=== PATIENT | female | born 1950 | race Caucasian/White ===

== ENCOUNTER 2016-04-14 10:06 | Inpatient (IN) | payer OTHER ==
[~2016-04-14] VITALS: Ht 170.2 cm; Wt 75.0 kg
[2016-04-14] VITALS (21 sets, daily range): BP systolic 106–157; BP diastolic 69–91; PULSE 68–105; TEMP 36.4–38.3; O2SAT 90–97; Ht 170.2 cm; Wt 75.0 kg
[~2016-04-14 10:06] MED LIST: ASPI-390 PO; ATOR-24 PO; FLUT0.15 NAE; INDSR80 PO; KRIL1CAP7 PO; LSN25 PO; NORT10CA PO; PANT40TA PO
[2016-04-14] MEDS ORDERED: HYDROmorphone INJ 0.5 MG/0.5 ML SYR IV STA (10:13)
[2016-04-14] MEDS ORDERED: METOCLOPRAMIDE HCL INJ 5 MG/ML 2 ML VIAL IV STA (10:13)
[2016-04-14] MEDS ORDERED: SODIUM CHLORIDE 0.9% 500ML 500 ML IV STA (10:13)
--- NOTE | 2016-04-14 10:17 | EMERGENCY ROOM VISIT NOTE ---
History Report prepared by Ney: Da Weeks Under the Supervision of: Dr. Barry Angel M.D. First contact with patient: 10:01 Chief Complaint: ABDOMINAL PAIN Stated Complaint: AB PAIN History of Present Illness The patient is a 66 year old female who presents to the Emergency Room with complaints of worsening abdominal pain since yesterday. Per EMS, the patient was diagnosed with diverticulosis yesterday. Last night she started to experience vomiting and diarrhea. The pain was rated 10/10 in severity en route to the ED prior to receiving 50 mcg Fentanyl. Patient is currently mumbling about the pain and asking for the pain to be taken away. Source of History: EMS Onset: yesterday Position: abdomen Symptom Intensity: 10/10 prior to Fentanyl Timing: worsening Associated Symptoms: + diarrhea, + nausea, + vomiting Review of Systems See HPI for pertinent positives & negatives. A total of 10 systems reviewed and were otherwise negative. Past Medical & Surgical Medical Problems: (1) Diverticulitis (2) Dyslipidemia (3) GERD (gastroesophageal reflux disease) (4) HTN (hypertension) (5) Mitral valve prolapse Surgical Problems: (1) History of appendectomy (2) History of cholecystectomy (3) History of gynecologic surgery (4) History of mandibular surgery (5) History of tubal ligation Family History Cancer Diabetes mellitus Social History Smoking Status: Former Smoker Marital Status: single Housing Status: lives alone Occupation Status: employed Current/Historical Medications Scheduled Zmnuggc-Tpqrhmtdytfft-Rbavrlhf (Excedrin Migraine), 2-3 TAB PO PRN UD Atorvastatin (Lipitor), 1 TAB PO HS Fluticasone Propionate (Nasal) (Flonase Allergy Relief), 2 SPRAYS ZOILA DAILY Krill Oil (Krill Oil Leland-3), 2 CAP PO QAM Krill Oil (Krill Oil Leland-3), 1 CAP PO QPM Lisinopril (Lisinopril), 2.5 MG PO DAILY Nortriptyline Hcl (Pamelor), 10 MG PO HS Pantoprazole (Protonix), 40 MG PO DAILY Propranolol HCl (Propranolol HCl ER), 80 MG PO DAILY Sertraline (Zoloft), 1 TAB PO DAILY Scheduled PRN Hydrocodone/Acetaminophen 5MG/325MG (Acme 5MG/325MG), 1 TAB PO TID PRN for Pain Allergies Coded Allergies: Morphine (Verified Allergy, Severe, anaphelaxis, 2/22/17) Diphenhydramine (Verified Allergy, Intermediate, itching, 04/14/16) Acetaminophen (Verified Adverse Reaction, Intermediate, GI SYMPTOMS, ) Hydrocodone (Verified Adverse Reaction, Intermediate, GI SYMPTOMS, 04/14/16 ) Physical Exam Vital Signs Date Time Temp Pulse Resp B/P Pulse Ox O2 Delivery O2 Flow Rate FiO2 04/14/16 13:01 101 18 109/73 97 Room Air 04/14/16 12:36 101 15 121/77 91 Nasal Cannula 2.0 04/14/16 10:27 36.6 105 24 132/80 85 Room Air 04/14/16 10:22 112 Physical Exam GENERAL: Patient is a healthy-appearing well-nourished HEAD: Normocephalic atraumatic EYES: Ocular movements intact pupils equal and react to light OROPHARYNX mucous membranes are moist no exudates present no erythema or edema present NECK: Supple no nuchal rigidity CHEST: Good equal expansion LUNGS: Clear and equal to auscultation CARDIAC: Normal S1 and S2 ABDOMEN: Patient is mumbling about abdominal pain and asking for the pain to be taken away on exam. Patient was evaluated after receiving 50 mcg Fentanyl. BACK: No CVA tenderness EXTREMITIES: No pain upon palpation normal muscle strength in all groups no clubbing cyanosis or edema NEURO: Patient is following commands is answering questions appropriately. Alert and oriented x3 Cranial Nerves 2-12 grossly intact Medical Decision & Procedures ER Provider Diagnostic Interpretation: Radiology results as stated below per my review and radiologist interpretation: CHEST ONE VIEW PORTABLE CLINICAL HISTORY: Pt c/o abd pain pain COMPARISON STUDY: 11/13/2015 FINDINGS: Small bibasilar parenchymal infiltrates. Slight blunting left lateral gastric angle. And upper lungs are considered clear. IMPRESSION: Small bibasilar parenchymal infiltrates. Electronically signed by: Aurelio Rodriguez M.D. 04/14/2016 1:14 PM Dictated Date/Time: 04/14/2016 1:[address] ABD/PELVIS IV CONTRAST ONLY CLINICAL HISTORY: Diffuse abdominal pain COMPARISON STUDY: Abdominal ultrasound performed October 2013 TECHNIQUE: Following the IV administration of 92 mL of Optiray-320, CT scan of the abdomen and pelvis was performed from the lung bases to the proximal femurs. Images are reviewed in the axial, sagittal, and coronal planes. IV contrast was administered without complication. CT DOSE: 314.49 mGy.cm FINDINGS: Lower chest: There are dependent bibasilar opacities, likely atelectatic. Liver: The contrast-enhanced liver is normal in size, contour, and attenuation. There is no intrahepatic biliary ductal dilatation. The hepatic veins and portal veins are patent. Gallbladder: Surgically absent Spleen: Normal in size and attenuation. Pancreas: Unremarkable. Adrenal glands: Unremarkable. Kidneys: There is symmetric renal cortical enhancement. The kidneys are normal in size without hydronephrosis. Bowel: There is free intraperitoneal air. There are no transition zones indicate bowel obstruction. There is extensive colonic diverticulosis. There is infiltration of the pericolonic fat at the descending sigmoid junction. The findings are suspicious for perforated diverticulitis. There is mild fatty hypertrophy involving the colonic wall most pronounced at the level of the transverse colon. There are multiple fluid-filled small bowel loops likely secondary to an ileus. Peritoneum: There is minimal free fluid within the pelvis, as well as there is a small amount of interloop fluid adjacent to the suspected diverticulitis.. There is free intraperitoneal air. Vasculature: The abdominal aorta is normal in course and caliber. Adenopathy: None. Pelvic viscera: The bladder, and pelvic viscera are unremarkable. Skeletal structures: No destructive osseous lesions are seen. IMPRESSION: 1. Free intraperitoneal air, suspicious for a perforated viscus 2. Multiple colonic diverticula, and infiltration the pericolonic fat at the descending sigmoid junction. The findings are suspicious for acute perforated diverticulitis. No drainable abscesses are visualized. 3. No evidence of bowel obstruction. 4. Bibasal atelectasis. 5. This report will be called. Electronically signed by: Ronnie Martins M.D. 04/14/2016 12:39 PM Dictated Date/Time: 04/14/2016 12:32 PM Laboratory Results Test 04/14/16 11:05 04/14/16 11:15 Prothrombin Time 11.1 SECONDS (9.0-12.0) Prothromb Time International Ratio 1.0 (0.9-1.1) Activated Partial Thromboplast Time 27.0 SECONDS (21.0-31.0) Partial Thromboplastin Ratio 1.0 Direct Bilirubin 0.2 mg/dl (0-0.2) Lipase 65 U/L (73-393) Date/Time Source Procedure Growth Status 04/14/16 00:00 Nasal MRSA DNA Surveillance Screen - Final Specimen Negative for MRSA by DNA Probe Complete Labs reviewed by ED physician. Medications Administered Medications (Trade) Dose Ordered Sig/Sara Route Start Time Stop Time Status Last Admin Dose Admin Hydromorphone HCl (Dilaudid Inj) 0.5 mg NOW STAT IV 04/14/16 10:13 04/14/16 10:15 DC 04/14/16 14:07 0.5 MG Metoclopramide HCl 10 mg 10 mg NOW STAT IV 04/14/16 10:13 04/14/16 10:15 DC 04/14/16 11:35 10 MG Sodium Chloride (Nss 500ml) 500 ml @ 999 mls/hr Q31M STAT IV 04/14/16 10:13 04/14/16 10:43 DC 04/14/16 10:13 999 MLS/HR Potassium Chloride 10 meq 10 meq NOW STAT IV 04/14/16 11:54 04/14/16 11:55 DC 04/14/16 13:53 10 MEQ Potassium Chloride/Prmx (Kcl 10 Meq / Wtr/Premixed Water) 100 ml @ 100 mls/hr NOW STAT IV 04/14/16 11:54 04/14/16 12:53 DC 04/14/16 12:37 100 MLS/HR Piperacillin Sod/ Tazobactam Sod 4.5 gm 4.5 gm NOW STAT IV 04/14/16 12:55 04/14/16 12:57 DC 04/14/16 14:07 4.5 GM Sodium Chloride (Nss 1000ml) 1,000 ml @ 999 mls/hr Q1H1M STAT IV 04/14/16 12:59 04/14/16 13:59 DC 04/14/16 12:59 999 MLS/HR ECG Indication: abdominal pain Rate (beats per minute): 98 Rhythm: normal sinus Findings: no acute ischemic change, no ectopy, other (normal EKG) ED Course 1010: Past medical records reviewed. The patient was evaluated in room A11b. A complete history and physical examination was performed. 1013: NSS 500 ml @ 999 mls/hr, Reglan 10 mg IV, Dilaudid 0.5 mg IV. 1154: Potassium Chloride 10 meq 100 ml @ 100 mls/hr. 1255: Zosyn 4.5 gm IV. 1259: NSS 1000 ml @ 999 mls/hr. 1302: Spoke with Dr. Clark, General Surgeon. The patient will be evaluated. Medical Decision Differential diagnosis: Etiologies such as appendicitis, diverticulitis, PUD, biliary pathology, UTI, pancreatitis, obstruction, mesenteric ischemia, aortic pathology, infections, inflammatory bowel disease, renal colic, as well as others were entertained. This is a 66-year-old female who presents emergency department complaining of diffuse abdominal pain. Based on the patient's pain she was sent for CAT scan of the abdomen pelvis. This was concerning for free air as well as puncture diverticuli. The patient was given Dilaudid in the emergency department. She was pancultured up concern antibiotics. I did discuss the case with the surgeon on-call. Patient was in agreement with the treatment plan. Consults Time Called: 1255 Consulting Physician: Dr. Clark, General Surgeon Returned Call: 1302 1302: Spoke with Dr. Clark, General Surgeon. The patient will be evaluated. Impression Primary Impression: Diffuse abdominal pain Additional Impression: Perforated diverticulum Critical Care I have personally spent greater than 30 minutes of critical care time in the direct management of this patient. This includes bedside care, interpretation of diagnostic studies, and testing, discussion with consultants, patient, and family members, and other required patient management activities. This 30 minutes is in excess of all separately billable procedures. Scribe Attestation The scribe's documentation has been prepared under my direction and personally reviewed by me in its entirety. I confirm that the note above accurately reflects all work, treatment, procedures, and medical decision making performed by me. Departure Information Dispostion Being Evaluated By Surgeon Referrals Tricia Turk D.O. (PCP) Patient Instructions My [facility] Problem Qualifiers
[2016-04-14] MEDS ORDERED: HYDR-5688 PO (10:41)
[2016-04-14] MEDS ORDERED: SERT50TA PO (10:41)
[2016-04-14 11:54] LABS: BASO % 0.1 %; BASO ABS # 0.01 K/uL (0-0.2); COMPLETE YES; EOS % 0.1 %; HEMATOCRIT 36.9 % (37-47); IG% 1.3 %; LYMPH % 6.1 %; LYMPH ABS # 0.49 K/uL (1.2-3.4); MEAN CELL VOLUME 91.1 fL (80-100); MEAN CORPUSCULAR HEMOGLOBIN 32.1 pg (25-34); MEAN CORPUSCULAR HGB CONC 35.2 g/dl (32-36); MONO % 5.3 %; NEUT % 87.1 %; PLATELET COUNT 329 K/uL (130-400); RED BLOOD COUNT 4.05 M/uL (4.2-5.4); WHITE BLOOD COUNT 7.99 K/uL (4.8-10.8)
[2016-04-14] MEDS: POTASSIUM CHLORIDE 10 MEQ / 100ML WTR IV STA ×2 (11:54→13:53)
[2016-04-14] MEDS ORDERED: POTASSIUM CHLR 10 MEQ / WTR 10 MEQ in PREMIXED WATER 100 ML IV STA (11:54)
[2016-04-14 12:03] LABS: BUN/CREATININE RATIO 20.1 (10-20); CALCIUM 8.9 mg/dl (8.5-10.1); CREATININE 0.59 mg/dl (0.60-1.20); POTASSIUM 2.9 mmol/L (3.5-5.1)
--- NOTE | 2016-04-14 12:41 | DIAGNOSTIC IMAGING REPORT ---
CT ABD/PELVIS IV CONTRAST ONLY CLINICAL HISTORY: Diffuse abdominal pain COMPARISON STUDY: Abdominal ultrasound performed October 2013 TECHNIQUE: Following the IV administration of 92 mL of Optiray-320, CT scan of the abdomen and pelvis was performed from the lung bases to the proximal femurs. Images are reviewed in the axial, sagittal, and coronal planes. IV contrast was administered without complication. CT DOSE: 314.49 mGy.cm FINDINGS: Lower chest: There are dependent bibasilar opacities, likely atelectatic. Liver: The contrast-enhanced liver is normal in size, contour, and attenuation. There is no intrahepatic biliary ductal dilatation. The hepatic veins and portal veins are patent. Gallbladder: Surgically absent Spleen: Normal in size and attenuation. Pancreas: Unremarkable. Adrenal glands: Unremarkable. Kidneys: There is symmetric renal cortical enhancement. The kidneys are normal in size without hydronephrosis. Bowel: There is free intraperitoneal air. There are no transition zones indicate bowel obstruction. There is extensive colonic diverticulosis. There is infiltration of the pericolonic fat at the descending sigmoid junction. The findings are suspicious for perforated diverticulitis. There is mild fatty hypertrophy involving the colonic wall most pronounced at the level of the transverse colon. There are multiple fluid-filled small bowel loops likely secondary to an ileus. Peritoneum: There is minimal free fluid within the pelvis, as well as there is a small amount of interloop fluid adjacent to the suspected diverticulitis.. There is free intraperitoneal air. Vasculature: The abdominal aorta is normal in course and caliber. Adenopathy: None. Pelvic viscera: The bladder, and pelvic viscera are unremarkable. Skeletal structures: No destructive osseous lesions are seen. IMPRESSION: 1. Free intraperitoneal air, suspicious for a perforated viscus 2. Multiple colonic diverticula, and infiltration the pericolonic fat at the descending sigmoid junction. The findings are suspicious for acute perforated diverticulitis. No drainable abscesses are visualized. 3. No evidence of bowel obstruction. 4. Bibasal atelectasis. 5. This report will be called. Electronically signed by: Ronnie Martins M.D. 04/14/2016 12:39 PM Dictated Date/Time: 04/14/2016 12:32 PM
[2016-04-14] MEDS ORDERED: PIPERACILLIN/TAZOBACTAM 4.5 GM/100ML D5W IV STA (12:55)
[2016-04-14] MEDS ORDERED: SODIUM CHLORIDE 0.9% 1000ML 1,000 ML IV STA (12:59)
--- NOTE | 2016-04-14 13:15 | DIAGNOSTIC IMAGING REPORT ---
CHEST ONE VIEW PORTABLE CLINICAL HISTORY: Pt c/o abd pain pain COMPARISON STUDY: 11/13/2015 FINDINGS: Small bibasilar parenchymal infiltrates. Slight blunting left lateral gastric angle. And upper lungs are considered clear. IMPRESSION: Small bibasilar parenchymal infiltrates. Electronically signed by: Aurelio Rodriguez M.D. 04/14/2016 1:14 PM Dictated Date/Time: 04/14/2016 1:13 PM
[2016-04-14] MEDS ORDERED: HYDROmorphone INJ 1 MG/ML SYR IV PRN (13:30)
[2016-04-14] MEDS ORDERED: LORAZEPAM INJ 0.5 MG in SYRINGE 0.75 ML IV PRN (13:30)
[2016-04-14] MEDS ORDERED: HYDROmorphone INJ 2 MG/ML SYR/VIAL IV PRN ×2 (13:30→16:30)
[2016-04-14] MEDS ORDERED: HYDROmorphone INJ 0.5 MG/0.5 ML SYR IV PRN ×2 (13:30→19:30)
[2016-04-14] MEDS ORDERED: POTASSIUM CHLORIDE INJ 40 MEQ in D5W AND NSS 1,000 ML IV STA (13:39)
[2016-04-14] MEDS ORDERED: PIPERACILL/TAZOBAC CONSULT ACTIVE PRN (13:45)
--- NOTE | 2016-04-14 13:47 | Surgery Progress Note ---
Surgery Progress Note Date of Service Apr 14, 2016. Objective Vital Signs: Date Time Temp Pulse Resp B/P Pulse Ox O2 Delivery O2 Flow Rate FiO2 04/14/16 13:33 37.5 100 18 103/76 96 Nasal Cannula 2.0 04/14/16 13:01 101 18 109/73 97 Room Air 04/14/16 12:36 101 15 121/77 91 Nasal Cannula 2.0 04/14/16 10:27 36.6 105 24 132/80 85 Room Air 04/14/16 10:22 112 Laboratory Results: Results Past 24 Hours Test 04/14/16 11:15 04/14/16 13:39 Range/Units White Blood Count 7.99 4.8-10.8 K/uL Red Blood Count 4.05 4.2-5.4 M/uL Hemoglobin 13.0 12.0-16.0 g/dL Hematocrit 36.9 37-47 % Mean Corpuscular Volume 91.1 80-100 fL Mean Corpuscular Hemoglobin 32.1 25-34 pg Mean Corpuscular Hemoglobin Concent 35.2 32-36 g/dl Platelet Count 329 130-400 K/uL Mean Platelet Volume 9.0 7.4-10.4 fL Neutrophils (%) (Auto) 87.1 % Lymphocytes (%) (Auto) 6.1 % Monocytes (%) (Auto) 5.3 % Eosinophils (%) (Auto) 0.1 % Basophils (%) (Auto) 0.1 % Neutrophils # (Auto) 6.96 1.4-6.5 K/uL Lymphocytes # (Auto) 0.49 1.2-3.4 K/uL Monocytes # (Auto) 0.42 0.11-0.59 K/uL Eosinophils # (Auto) 0.01 0-0.5 K/uL Basophils # (Auto) 0.01 0-0.2 K/uL RDW Standard Deviation 41.9 36.4-46.3 fL RDW Coefficient of Variation 12.5 11.5-14.5 % Immature Granulocyte % (Auto) 1.3 % Immature Granulocyte # (Auto) 0.10 0.00-0.02 K/uL Sodium Level 140 136-145 mmol/L Potassium Level 2.9 3.5-5.1 mmol/L Chloride Level 103 98-107 mmol/L Carbon Dioxide Level 25 21-32 mmol/L Anion Gap 12.0 3-11 mmol/L Blood Urea Nitrogen 12 7-18 mg/dl Creatinine 0.59 0.60-1.20 mg/dl Est Creatinine Clear Calc Drug Dose 88.9 ml/min Estimated GFR () 111.5 Estimated GFR (Non- 96.2 BUN/Creatinine Ratio 20.1 10-20 Random Glucose 120 70-99 mg/dl Calcium Level 8.9 8.5-10.1 mg/dl Total Bilirubin 0.7 0.2-1 mg/dl Direct Bilirubin 0.2 0-0.2 mg/dl Aspartate Amino Transf (AST/SGOT) 28 15-37 U/L Alanine Aminotransferase (ALT/SGPT) 45 12-78 U/L Alkaline Phosphatase 139 45-117 U/L Total Protein 7.0 6.4-8.2 gm/dl Albumin 3.1 3.4-5.0 gm/dl Lipase 65 73-393 U/L Assessment & Plan 04/14/16- admit to ICU with perforated diverticulitis- NPO, IV fluids, atbx pain control, monitor progress closely monitor, may need IV beta rachelle discussed with daughter- Tricia Ibrahim [phone]
--- NOTE | 2016-04-14 13:53 | HISTORY & PHYSICAL EXAMINATION ---
DATE OF ADMISSION: 04/14/2016 CHIEF COMPLAINT: Abdominal pain. HISTORY OF PRESENT ILLNESS: The patient is a 66-year-old female who developed worsening abdominal pain over the past 24 hours, most localized to the left lower abdomen, presenting to the Emergency Room in extreme pain, found on CAT scan to have perforated diverticulitis. She is afebrile, heart rate is approximately 100. White count is 7.99, potassium 2.99. PAST MEDICAL HISTORY: Appendectomy, cholecystectomy, [employer] surgery, tubal ligation, hyperlipidemia, hypertension, mitral valve prolapse. MEDICATIONS: Include propranolol, Protonix and Lipitor. REVIEW OF SYSTEMS: She does admit to nausea, vomiting, diarrhea. Ten other systems reviewed and otherwise negative. FAMILY HISTORY: Noncontributory. SOCIAL HISTORY: She is a former smoker. ALLERGIES: SHE DOES HAVE ALLERGIES OR REACTIONS TO MORPHINE, DIPHENHYDRAMINE, ACETAMINOPHEN AND HYDROCODONE. PHYSICAL EXAMINATION: GENERAL: A healthy appearing female in some distress secondary to pain and anxiety. HEAD: Normocephalic. EYES: Show normal sclera. NECK: Supple. SKIN: Shows no rashes. LUNGS: Clear without respiratory distress. HEART: Regular rate and rhythm. ABDOMEN: Soft, but she does have tenderness especially in the lower abdomen, somewhat difficult to examine secondary to her anxiety and pain. EXTREMITIES: Without significant edema. She is awake and alert. I did review her CAT scan which shows evidence of extraluminal air and inflammation in the perisigmoid area. ASSESSMENT AND PLAN: A 66-year-old female with perforated diverticulitis. I have discussed with the patient admission to the hospital and possible need for urgent operation depending on her progress. I also discussed the possibility of needing a temporary colostomy and at that point she told me she would not have that and would rather . Obviously we will not allow this to happen. We will admit her to the ICU and ask the [facility] hospitalist to see the patient. Keep her n.p.o., IV fluids, Ballesteros catheter, IV antibiotics and assess her for deterioration. She may need urgent operation.
[2016-04-14 13:56] LABS: PROTHROMBIN TIME (PATIENT) 11.1 SECONDS (9.0-12.0)
[2016-04-14] MEDS: ONDANSETRON INJ 2 MG/ML 2 ML VIAL IV PRN (14:07)
--- NOTE | 2016-04-14 14:32 | Medical Consult ---
Consultation Date of Consultation: Apr 14, 2016. Attending Physician: Dr. Doyle Reason for Consultation: med mgmt History of Present Illness This is a 66 y/o female with PMHx of diverticulosis, GERD, HTN, Dyslipidemia and other problems as outlined below who presents to the ED c/o worsening abd pain x 24 hrs. Pt reports that one week ago she developed abdominal pain that she describes as 10/10 "sharp" LLQ pain that radiates to the groin and back. Sxs are assoc with subj fevers/chills, N/V and diarrhea. Pt was seen by her PCP yesterday. abd CT abd bloodwork was ordered. Pt was started on course of Cipro/ Flagyl which she started this morning. Due to worsening abd pain, patient presented to the ED for further evaluation. Pt has a history of diverticulitis. Her last flare was "years ago". Pt denies chest pain, SOB, hematochezia, melena , bladder issues, LE edema ,calf pain, lightheadedness/dizziness. In the ED, pt is tachy on arrival. She is afebrile with no leukocytosis. K+ 2.9. CT abd/ pelvis + perforated diverticulitis with no evidence of abscess. Pt will be admitted to the ICU for further evaluation and treatment including possible need for emergent surgery. Past Medical/Surgical History Medical Problems: (1) Diffuse abdominal pain Status: Acute (2) Perforated diverticulum Status: Acute Family History Cancer Diabetes mellitus Social History Smoking Status: Former Smoker (48 pack year history; quit june 2014) Alcohol Use: none Drug Use: none Marital Status: single Housing Status: lives alone Allergies Coded Allergies: Morphine (Verified Allergy, Severe, anaphelaxis, 04/14/16) Diphenhydramine (Verified Allergy, Intermediate, itching, 04/14/16) Acetaminophen (Verified Adverse Reaction, Intermediate, GI SYMPTOMS, ) Hydrocodone (Verified Adverse Reaction, Intermediate, GI SYMPTOMS, 04/14/16 ) Home Medications Active Reported [place] 5MG/325MG (Acetaminophen/Hydrocodone Bitart) Tab 1 Tab PO TID PRN 30 Days PRN PAIN. filled at [facility] on 04/13/16 Zoloft (Sertraline HCl) 50 Mg Tab 1 Tab PO DAILY 30 Days Excedrin Migraine (Fbbibsb-Rlpvqhqwytchw-Gbktxfci) 1 Tab Tab 2-3 Tab PO PRN UD Pamelor (Nortriptyline Hcl) 10 Mg Cap 10 Mg PO HS Propranolol HCl ER (Propranolol HCl) 80 Mg Capcr 80 Mg PO DAILY Protonix (Pantoprazole Sodium) 40 Mg Tab 40 Mg PO DAILY Krill Oil [place]-3 (Krill Oil) 1 Cap Cap 1 Cap PO QPM Krill Oil [place]-3 (Krill Oil) 1 Cap Cap 2 Cap PO QAM Lisinopril 2.5 Mg Tab 2.5 Mg PO DAILY Flonase Allergy Relief (Fluticasone Propionate (Nasal)) 50 Mcg/Act Spr 2 Sprays ZOILA DAILY Lipitor (Atorvastatin Calcium) 40 Mg Tab 1 Tab PO HS 90 Days Current Inpatient Medications Current Inpatient Medications Medications (Trade) Dose Ordered Sig/Sara Route Start Time Stop Time Status Last Admin Dose Admin Hydromorphone HCl (Dilaudid Inj) 0.5 mg Q3H PRN IV 04/14/16 13:30 04/28/16 13:29 Hydromorphone HCl (Dilaudid Inj) 1 mg Q3H PRN IV 04/14/16 13:30 04/28/16 13:29 Hydromorphone HCl 2 mg 2 mg Q3H PRN IV 04/14/16 13:30 04/28/16 13:29 Piperacillin Sod/ Tazobactam Sod/ Dextrose (Zosyn Iv/D5 100ml) 115 ml @ 28.75 mls/ hr Q8 IV 04/14/16 14:00 04/24/16 13:59 UNV Heparin Sodium (Porcine) 5000 unit 5,000 unit Q12H SQ 04/14/16 13:30 05/14/16 13:29 UNV Lorazepam 0.5 mg/ Syringe 1 ml @ 0.5 mls/min Q6 PRN IV 04/14/16 13:30 05/14/16 13:29 Lorazepam 0.5 mg/ Syringe 1 ml @ 0.5 mls/min Q6 PRN IV 04/14/16 13:30 05/14/16 13:29 Promethazine HCl/ Sodium Chloride (Phenergan Inj/ Nss 50ml) 51 ml @ 204 mls/hr Q6H PRN IV 04/14/16 13:30 05/14/16 13:29 Ondansetron HCl (Zofran Inj) 4 mg Q6H PRN IV 04/14/16 13:30 05/14/16 13:29 Ketorolac Tromethamine (Toradol Inj) 30 mg Q6H IV. 04/14/16 13:30 04/19/16 13:29 UNV Piperacillin Sod/ Tazobactam Sod 1 ea 1 ea UD PRN N/A 04/14/16 13:45 05/14/16 13:44 Potassium Chloride 40 meq/ Dextrose/Sodium Chloride 1,020 ml @ 125 mls/hr Q8H10M STAT IV 04/14/16 13:39 04/14/16 21:48 Potassium Chloride/Dextrose/ Sodium Chloride (KCl Inj/D5W And Nss) 1,020 ml @ 125 mls/hr Q8H10M IV 04/14/16 13:45 05/14/16 13:44 UNV Review of Systems Constitutional: + chills, + fever (subj), No fatigue, No weakness Eyes: No worsening of vision ENT: No hearing loss Respiratory: No cough, No shortness of breath Cardiovascular: No chest pain, No claudication, No edema Abdomen: + diarrhea, + nausea, + pain, + vomiting, No GI bleeding, No constipation Musculoskeletal: No calf pain, No swelling Genitourinary - Female: No dysuria Neurologic: No weakness Psychiatric: No depression symptoms Endocrine: No fatigue Hematologic / Lymphatic: No abnormal bleeding/bruising Integumentary: No new/changing skin lesions Physical Exam Date Time Temp Pulse Resp B/P Pulse Ox O2 Delivery O2 Flow Rate FiO2 04/14/16 13:33 37.5 100 18 103/76 96 Nasal Cannula 2.0 04/14/16 13:01 101 18 109/73 97 Room Air 04/14/16 12:36 101 15 121/77 91 Nasal Cannula 2.0 04/14/16 10:27 36.6 105 24 132/80 85 Room Air 04/14/16 10:22 112 General Appearance: WD/WN, + mild distress, + pertinent finding (Pt is laying in bed with some distress due to pain ) Head: normocephalic, atraumatic Eyes: normal inspection ENT: hearing grossly normal Neck: supple Respiratory/Chest: chest non-tender, lungs clear, normal breath sounds, no respiratory distress Cardiovascular: regular rate, rhythm, no edema, no murmur Abdomen/GI: normal bowel sounds, soft, + tenderness (exquisite tenderness), + guarding Back: normal inspection Extremities/Musculoskelatal: normal inspection, no calf tenderness, no pedal edema Neurologic/Psych: alert, normal mood/affect, oriented x 3 Skin: normal color, warm/dry Laboratory Results Last 24 Hours Test 04/14/16 11:05 04/14/16 11:15 Prothrombin Time 11.1 SECONDS Prothromb Time International Ratio 1.0 Activated Partial Thromboplast Time 27.0 SECONDS Partial Thromboplastin Ratio 1.0 White Blood Count 7.99 K/uL Red Blood Count 4.05 M/uL Hemoglobin 13.0 g/dL Hematocrit 36.9 % Mean Corpuscular Volume 91.1 fL Mean Corpuscular Hemoglobin 32.1 pg Mean Corpuscular Hemoglobin Concent 35.2 g/dl Platelet Count 329 K/uL Mean Platelet Volume 9.0 fL Neutrophils (%) (Auto) 87.1 % Lymphocytes (%) (Auto) 6.1 % Monocytes (%) (Auto) 5.3 % Eosinophils (%) (Auto) 0.1 % Basophils (%) (Auto) 0.1 % Neutrophils # (Auto) 6.96 K/uL Lymphocytes # (Auto) 0.49 K/uL Monocytes # (Auto) 0.42 K/uL Eosinophils # (Auto) 0.01 K/uL Basophils # (Auto) 0.01 K/uL RDW Standard Deviation 41.9 fL RDW Coefficient of Variation 12.5 % Immature Granulocyte % (Auto) 1.3 % Immature Granulocyte # (Auto) 0.10 K/uL Sodium Level 140 mmol/L Potassium Level 2.9 mmol/L Chloride Level 103 mmol/L Carbon Dioxide Level 25 mmol/L Anion Gap 12.0 mmol/L Blood Urea Nitrogen 12 mg/dl Creatinine 0.59 mg/dl Est Creatinine Clear Calc Drug Dose 88.9 ml/min Estimated GFR () 111.5 Estimated GFR (Non- 96.2 BUN/Creatinine Ratio 20.1 Random Glucose 120 mg/dl Calcium Level 8.9 mg/dl Total Bilirubin 0.7 mg/dl Direct Bilirubin 0.2 mg/dl Aspartate Amino Transf (AST/SGOT) 28 U/L Alanine Aminotransferase (ALT/SGPT) 45 U/L Alkaline Phosphatase 139 U/L Total Protein 7.0 gm/dl Albumin 3.1 gm/dl Lipase 65 U/L Assessment & Plan ACUTE PERFORATED DIVERTICULITIS pt presented with worsening LLQ abd pain assoc with fevers/chills, N/V and diarrhea; h/o diverticulitis -admitted to the ICU by surgery, Dr. Clark -pt is afebrile with no leukocytosis -CT abd/pelvis + acute perforated diverticulitis with no evidence of abscess -obtain blood cultures and check lactic acid -cont abx and IVF -Dilaudid PRN pain -keep NPO for possible need for emergent surgery -pt does not appear septic -will continue to follow HTN -BP stable -holding lisinopril and Propranolol for now due to NPO status for possible OR -monitor DYSLIPIDEMIA -hold statin for now due to possible OR DVT PROPHYLAXIS -SCDs only in setting of possible need for surgery CODE STATUS -DNR status per discussion with patient upon admission DISPO -Pt seen in collaboration with Dr. Gan. Please see his addendum for further details. Thanks! -Of note: patient will be followed by Dr. Doyle starting tomorrow AM. Thank you for this consultation. We will follow the patient with you during their hospital stay. You can reach a [facility] via pager @ [phone]. SUPERVISING PHYSICIAN ADDENDUM: Record reviewed. Patient interviewed and examined. Care coordinated with Tori Nielsen PA-C. Please refer to her documentation for patient's history. Briefly 66 YO female who presented to ED complaining of abdominal pain. CT demonstrated free air and suspected diverticulitis. Taken to OR this afternoon; exploratory lap performed by Dr. Clark. Doing fairly well postoperatively except for abdominal pain. No chest pain. No cough or dyspnea. No vomiting. EXAM (~ 19:00): General- appears to be uncomfortable, but in no acute distress VS- as noted HEENT- [] Neck- no JVD Lungs- clear to auscultation Heart- RRR, no murmur or gallop appreciated Abdomen- bandaged, slightly distended, soft, quiet bowel sounds Extremities- SCD's applied; no pretibial edema or calf tenderness Neuro- somewhat sedated DATA: CT abdomen + pelvis: free air; colonic diverticulosis; infiltration of pericolonic fat in sigmoid region consistent with diverticulitis. EKG performed at 13:27 reviewed and demonstrated NSR at 98 / minute, T-wave flattening inferiorly. ASSESSMENT AND PLAN: Diverticulitis with perforation / peritonitis. Received IV fluids and antibiotics. Exploratory lap performed by Dr. Clark. Stable postoperatively. History of hypertension treated with propranolol and lisinopril. Will order IV metoprolol while NPO. Serum K 2.9 preoperatively. Will recheck. Please refer to CHERI Nielsen's documentation for discussion of other issues. Jet Gan MD .
[2016-04-14] MEDS ORDERED: FENTANYL CITRATE INJ 50 MCG/1 ML 2 ML VIAL ONE ×2 (15:39→17:21)
[2016-04-14] MEDS ORDERED: CEFOXITIN SOD 2 GM VIAL ONE (15:39)
[2016-04-14] MEDS: METRONIDAZOLE / NSS 500 MG in PREMIXED NSS 100 ML IV SCH ×2 (15:40→23:58)
[2016-04-14] MEDS ORDERED: NEOSTIGMINE METHYLSULFATE 5 MG/5 ML SYR ONE (15:52)
[2016-04-14] MEDS ORDERED: ONDANSETRON INJ 2 MG/ML 2 ML VIAL ONE (15:52)
[2016-04-14] MEDS ORDERED: DEXAMETHASONE SOD INJ 4 MG/ML VIAL ONE (15:52)
[2016-04-14] MEDS ORDERED: SUCCINYLCHOLINE CHLORIDE 20 MG/ML 10 ML VIAL IV ONE (15:52)
[2016-04-14] MEDS ORDERED: ROCURONIUM BROMIDE 10 MG/ML 5 ML VIAL ONE (15:52)
[2016-04-14] MEDS ORDERED: GLYCOPYRROLATE INJ 0.2 MG/ML VIAL ONE (15:52)
[2016-04-14] MEDS ORDERED: PROPOFOL IV EMULSION 10 MG/ML 20 ML VIAL IV ONE (15:52)
[2016-04-14] MEDS ORDERED: LIDOCAINE HCL 2% 2 ML VIAL (20MG/ML) ONE (15:52)
[2016-04-14 16:01] LABS: BUN/CREATININE RATIO 15.5 (10-20); CALCIUM 8.2 mg/dl (8.5-10.1); CREATININE 0.59 mg/dl (0.60-1.20); POTASSIUM 2.9 mmol/L (3.5-5.1)
[2016-04-14 16:16] LABS: URINE APPEARANCE CLEAR (CLEAR); URINE BILIRUBIN NEG (NEG); URINE COLOR YELLOW; URINE EPITHELIAL CELL AUTO 20-30 /lpf (0-5); URINE NITRITE POS (NEG); URINE SPECIFIC GRAVITY > 1.045 (1.000-1.030); UROBILINOGEN NEG (NEG)
[2016-04-14 16:21] LABS: MANUAL MICROSCOPIC REQUIRED? NO; REVIEW REQ? NO
[2016-04-14] MEDS ORDERED: ONDANSETRON INJ 2 MG/ML 2 ML VIAL IV PRN (16:30)
[2016-04-14] MEDS ORDERED: ATROPINE SULFATE 0.1 MG/ML 5ML SYR IV PRN (16:30)
[2016-04-14] MEDS: CEFOXITIN SOD 2 GM VIAL ONE (16:49)
--- NOTE | 2016-04-14 17:16 | Critical Care Consultation ---
Critical Care Consultation Date of Consultation: Apr 14, 2016. Attending Physician: Stephen Clark M.D. Reason for Consultation: Perforated diverticulitis ICU admission History of Present Illness History obtained from the patient was limited due to her receiving Dilaudid. Despite sedated she is still having 10/10 pain. She confirms week long history of worsening abdominal pain and much worse over the last 24 hours. As per ER and hospitalist notes. Having LLQ pain to groin and back. Seen by her PCP yesterday and diagnosed with diverticulitis. Started on cipro/flagyl this morning but came to the ER due to worsening abdominal pain. In the ED she was afebrile but had tachycardia. WBC were within normal limits. Cr 0.59. Of note she was hypokalemic 2.9 which was treated with x2 20meq KCl IV. CT A/P with IV contrast was suspicious for diverticulitis with perforation, no abscess identified. She was given Zosyn IV. She was evaluated by Dr Clark and decided upon non surgical approach but may need urgent surgery later today. She was apparently said she would rather than have a surgery with a colostomy. I discussed the potential need for an operation and she decided she wishes to defer the decision to her daughter. I discussed this with her daughter Tricia Ibrahim who would be willing to given consent on the patient's behalf and informed Dr Clark of this. Past Medical/Surgical History PMHx Diverticulitis Irritable bowel syndrome Anxiety Migraines Hypertension Hyperlipidemia GERD with chronic cough PSHx Cholecystectomy tubal ligation Surgical repair of bladder and uterine prolapse Colon fistula repairs Appendicectomy Jaw surgery Family History Cancer Diabetes mellitus Social History Smoking Status: Former Smoker (40 years, quit 2014) Alcohol Use: none Drug Use: none Marital Status: single Housing Status: lives alone Allergies Coded Allergies: Morphine (Verified Allergy, Severe, anaphelaxis, 04/14/16) Diphenhydramine (Verified Allergy, Intermediate, itching, 04/14/16) Acetaminophen (Verified Adverse Reaction, Intermediate, GI SYMPTOMS, ) Hydrocodone (Verified Adverse Reaction, Intermediate, GI SYMPTOMS, 04/14/16 ) Home Medications Scheduled Ptxqfix-Uyturboizrfwi-Hjkjeqys (Excedrin Migraine), 2-3 TAB PO PRN UD Atorvastatin (Lipitor), 1 TAB PO HS Fluticasone Propionate (Nasal) (Flonase Allergy Relief), 2 SPRAYS ZOILA DAILY Krill Oil (Krill Oil [place]-3), 2 CAP PO QAM Krill Oil (Krill Oil [place]-3), 1 CAP PO QPM Lisinopril (Lisinopril), 2.5 MG PO DAILY Nortriptyline Hcl (Pamelor), 10 MG PO HS Pantoprazole (Protonix), 40 MG PO DAILY Propranolol HCl (Propranolol HCl ER), 80 MG PO DAILY Sertraline (Zoloft), 1 TAB PO DAILY Scheduled PRN Hydrocodone/Acetaminophen 5MG/325MG ([place] 5MG/325MG), 1 TAB PO TID PRN for Pain Current Inpatient Medications Current Inpatient Medications Medications (Trade) Dose Ordered Sig/Sara Route Start Time Stop Time Status Last Admin Dose Admin Hydromorphone HCl (Dilaudid Inj) 0.5 mg Q3H PRN IV 04/14/16 13:30 04/28/16 13:29 Hydromorphone HCl (Dilaudid Inj) 1 mg Q3H PRN IV 04/14/16 13:30 04/28/16 13:29 Hydromorphone HCl 2 mg 2 mg Q3H PRN IV 04/14/16 13:30 04/28/16 13:29 Piperacillin Sod/ Tazobactam Sod/ Dextrose (Zosyn Iv/D5 100ml) 115 ml @ 28.75 mls/ hr Q8 IV 04/14/16 14:00 04/24/16 13:59 UNV Heparin Sodium (Porcine) 5000 unit 5,000 unit Q12H SQ 04/14/16 13:30 05/14/16 13:29 UNV Lorazepam 0.5 mg/ Syringe 1 ml @ 0.5 mls/min Q6 PRN IV 04/14/16 13:30 05/14/16 13:29 Lorazepam 0.5 mg/ Syringe 1 ml @ 0.5 mls/min Q6 PRN IV 04/14/16 13:30 05/14/16 13:29 Promethazine HCl/ Sodium Chloride (Phenergan Inj/ Nss 50ml) 51 ml @ 204 mls/hr Q6H PRN IV 04/14/16 13:30 05/14/16 13:29 Ondansetron HCl (Zofran Inj) 4 mg Q6H PRN IV 04/14/16 13:30 05/14/16 13:29 04/14/16 14:07 4 MG Ketorolac Tromethamine (Toradol Inj) 30 mg Q6H IV. 04/14/16 13:30 04/19/16 13:29 UNV Piperacillin Sod/ Tazobactam Sod 1 ea 1 ea UD PRN N/A 04/14/16 13:45 05/14/16 13:44 Potassium Chloride 40 meq/ Dextrose/Sodium Chloride 1,020 ml @ 125 mls/hr Q8H10M STAT IV 04/14/16 13:39 04/14/16 21:48 Potassium Chloride/Dextrose/ Sodium Chloride (KCl Inj/D5W And Nss) 1,020 ml @ 125 mls/hr Q8H10M IV 04/14/16 13:45 05/14/16 13:44 UNV Review of Systems Limited due to patient sedated with Dilaudid Constitutional: No chills, No fever Cardiovascular: No chest pain Abdomen: + pain, No nausea, No vomiting Genitourinary - Female: No dysuria, No urinary frequency Psychiatric: + anxiety Physical Exam Date Time Temp Pulse Resp B/P Pulse Ox O2 Delivery O2 Flow Rate FiO2 04/14/16 14:42 38.3 105 25 117/71 96 Nasal Cannula 2.0 04/14/16 14:20 113 18 115/84 96 Nasal Cannula 2.0 04/14/16 13:33 37.5 100 18 103/76 96 Nasal Cannula 2.0 04/14/16 13:01 101 18 109/73 97 Room Air 04/14/16 12:36 101 15 121/77 91 Nasal Cannula 2.0 04/14/16 10:27 36.6 105 24 132/80 85 Room Air 04/14/16 10:22 112 General Appearance: + moderate distress (sedated with moderate distress from pain) Head: normocephalic, atraumatic Eyes: PERRL, EOMI Neck: supple, no JVD Respiratory/Chest: lungs clear, normal breath sounds, no respiratory distress, no accessory muscle use Cardiovascular: no edema, no murmur, normal peripheral pulses, + tachycardia Abdomen/GI: soft, + tenderness (generalized abdominal tenderness on light palpation), + distended, + guarding, + rebound Back: no CVA tenderness Extremities/Musculoskelatal: no calf tenderness, normal capillary refill, no pedal edema Neurologic/Psych: prism inspector II-XII nml as tested (no facial droop), alert (but sleepy ), oriented x 3, + depressed affect Skin: normal color, warm/dry, no rash Laboratory Results Last 24 Hours Test 04/14/16 11:05 04/14/16 11:15 04/14/16 14:41 Prothrombin Time 11.1 SECONDS Prothromb Time International Ratio 1.0 Activated Partial Thromboplast Time 27.0 SECONDS Partial Thromboplastin Ratio 1.0 White Blood Count 7.99 K/uL Red Blood Count 4.05 M/uL Hemoglobin 13.0 g/dL Hematocrit 36.9 % Mean Corpuscular Volume 91.1 fL Mean Corpuscular Hemoglobin 32.1 pg Mean Corpuscular Hemoglobin Concent 35.2 g/dl Platelet Count 329 K/uL Mean Platelet Volume 9.0 fL Neutrophils (%) (Auto) 87.1 % Lymphocytes (%) (Auto) 6.1 % Monocytes (%) (Auto) 5.3 % Eosinophils (%) (Auto) 0.1 % Basophils (%) (Auto) 0.1 % Neutrophils # (Auto) 6.96 K/uL Lymphocytes # (Auto) 0.49 K/uL Monocytes # (Auto) 0.42 K/uL Eosinophils # (Auto) 0.01 K/uL Basophils # (Auto) 0.01 K/uL RDW Standard Deviation 41.9 fL RDW Coefficient of Variation 12.5 % Immature Granulocyte % (Auto) 1.3 % Immature Granulocyte # (Auto) 0.10 K/uL Sodium Level 140 mmol/L Potassium Level 2.9 mmol/L Chloride Level 103 mmol/L Carbon Dioxide Level 25 mmol/L Anion Gap 12.0 mmol/L Blood Urea Nitrogen 12 mg/dl Creatinine 0.59 mg/dl Est Creatinine Clear Calc Drug Dose 88.9 ml/min Estimated GFR () 111.5 Estimated GFR (Non- 96.2 BUN/Creatinine Ratio 20.1 Random Glucose 120 mg/dl Calcium Level 8.9 mg/dl Total Bilirubin 0.7 mg/dl Direct Bilirubin 0.2 mg/dl Aspartate Amino Transf (AST/SGOT) 28 U/L Alanine Aminotransferase (ALT/SGPT) 45 U/L Alkaline Phosphatase 139 U/L Total Protein 7.0 gm/dl Albumin 3.1 gm/dl Lipase 65 U/L Diagnostic Results CHEST ONE VIEW PORTABLE CLINICAL HISTORY: Pt c/o abd pain pain COMPARISON STUDY: 11/13/2015 FINDINGS: Small bibasilar parenchymal infiltrates. Slight blunting left lateral gastric angle. And upper lungs are considered clear. IMPRESSION: Small bibasilar parenchymal infiltrates. Electronically signed by: Aurelio Rodriguez M.D. 04/14/2016 1:14 PM Dictated Date/Time: 04/14/2016 1:[address] ABD/PELVIS IV CONTRAST ONLY CLINICAL HISTORY: Diffuse abdominal pain COMPARISON STUDY: Abdominal ultrasound performed October 2013 TECHNIQUE: Following the IV administration of 92 mL of Optiray-320, CT scan of the abdomen and pelvis was performed from the lung bases to the proximal femurs. Images are reviewed in the axial, sagittal, and coronal planes. IV contrast was administered without complication. CT DOSE: 314.49 mGy.cm FINDINGS: Lower chest: There are dependent bibasilar opacities, likely atelectatic. Liver: The contrast-enhanced liver is normal in size, contour, and attenuation. There is no intrahepatic biliary ductal dilatation. The hepatic veins and portal veins are patent. Gallbladder: Surgically absent Spleen: Normal in size and attenuation. Pancreas: Unremarkable. Adrenal glands: Unremarkable. Kidneys: There is symmetric renal cortical enhancement. The kidneys are normal in size without hydronephrosis. Bowel: There is free intraperitoneal air. There are no transition zones indicate bowel obstruction. There is extensive colonic diverticulosis. There is infiltration of the pericolonic fat at the descending sigmoid junction. The findings are suspicious for perforated diverticulitis. There is mild fatty hypertrophy involving the colonic wall most pronounced at the level of the transverse colon. There are multiple fluid-filled small bowel loops likely secondary to an ileus. Peritoneum: There is minimal free fluid within the pelvis, as well as there is a small amount of interloop fluid adjacent to the suspected diverticulitis.. There is free intraperitoneal air. Vasculature: The abdominal aorta is normal in course and caliber. Adenopathy: None. Pelvic viscera: The bladder, and pelvic viscera are unremarkable. Skeletal structures: No destructive osseous lesions are seen. IMPRESSION: 1. Free intraperitoneal air, suspicious for a perforated viscus 2. Multiple colonic diverticula, and infiltration the pericolonic fat at the descending sigmoid junction. The findings are suspicious for acute perforated diverticulitis. No drainable abscesses are visualized. 3. No evidence of bowel obstruction. 4. Bibasal atelectasis. 5. This report will be called. Electronically signed by: Ronnie Martins M.D. 04/14/2016 12:39 PM Dictated Date/Time: 04/14/2016 12:32 PM Assessment & Plan 66 yo female with Hx diverticulitis, presents with worsening LLQ abdominal pain. Assessment: 1. Sepsis: she now has a temperature and tachycardia source diverticulitis/ peritonitis based on imaging and examination 2. Perforated Diverticulitis 3. Hx Hyperlipidemia 4. Hx Anxiety 5. Hx Hypertension 6. Hx GERD Neuro: Currently sedated secondary to Dilaudid. Anaphylaxis allergy to morphine in record therefore avoid this. She appears depressed and has a history of anxiety. Not on SSRI, will hold off treatment currently due to current severe illness. Pulmonary: On small amounts of O2. Likely reduced inspiratory effort due to pain, some atelectasis on CXR. Plan for better pain control and incentive spirometry Hx of lung nodules on previous CT with mild obstructive/restrictive airway disease on PFTs (with bronchodilator reversibility) Cardiovascular: No previous GA. No murmurs on examination. Sinus tachycardia secondary sepsis. Continue on monitor. Blood pressure currently stable and will hold all home anti-hypertensives Hyperlipidemia: hold statin due to NPO and severe illness. Gastrointestinal: Diverticulitis - NPO, Zosyn + metronidazole. NG if she has nausea and vomiting. Perforation and perotinitis on examination: discussed with Dr Clark and he will come to re-evaluate for surgery. Metronidazole added to Abx regimen. GERD: pantoprazole 40 mg IV daily Renal//electrolytes Hypokalemia - likely secondary to GI losses. 2x 20 meq KCl given in ER. Will repeat BMP now. Continue NSS + 40 meq KCl @ 125 MLS/HR as NPO, may need to increase rate if tachycardia not improving. Infectious Disease: Diverticulitis + Peritonitis: Zosyn + Flagyl Initial temperature in the ICU 38.3, therefore blood cultures and lactic acid ordered and Dr Clark informed. Miscellaneous PT/OT VTE/GI Prophylaxis - SCDs + TEDs. Chemical prophylaxis held pending surgery decision - Pantoprazole 40 mg IV daily Code: DNR as per patient discussion with hospitalist (I did not cover this again with her) Disposition While critically unwell will monitor in ICU. Possible step down care tomorrow depending on clinical course. Resident Physician Supervision Note: I interviewed and examined the patient. Discussed with Dr. Walker and agree with findings and plan as documented in the note. She is post op from an exlap, sigmoidectomy and end colostomy. Introp course discussed with Dr. Neil. Had some discoloration of neck during the case but was resolving after extubation and stay in PACU. She is awake and complains of abdominal pain. Denies SOB. Abdomen distended, dressing C/D/I and TOI with serosanguinous drainage. Hemodynamics are acceptable. Will increase frequency of Dilaudid to q3h prn. Incentive spirometer is in the room. Documented By: Debi Cardona Resident Tracking Resident Involvement: Resident Care Provided Care Provided: Adult Hospital Medicine (ICU)
--- NOTE | 2016-04-14 18:08 | [facility] Post Operative Brief Note ---
Immediate Operative Summary Operative Date Apr 14, 2016. Pre-Operative Diagnosis Perforated diverticulitis Post-Operative Diagnosis same, peritonitis and abscess Procedure(s) Performed Exploratory Laparotomy, Sigmoidcolectomy, and colostomy abd washout and drainage abscess Surgeon Dr Clark Crematory Operator Surgeon(s) Laura ALONZO Estimated Blood Loss 50 ml Findings perforated sigmoid colon Specimens a. sigmoid colon= stitch marked distal Drains #[id number] TOI to pelvis, gumaro to subcu Anesthesia gen Complication(s) None Disposition Surgical ICU
--- NOTE | 2016-04-14 18:40 | OPERATIVE REPORT ---
DATE OF OPERATION: 04/14/2016 NAME OF OPERATION: Exploratory laparotomy with sigmoid colectomy, end colostomy, abdominal washout and drainage of abscess. PREOPERATIVE DIAGNOSES: Perforated diverticulitis with peritonitis. POSTOPERATIVE DIAGNOSES: Same with abscess. STAFF SURGEON: Dr. Clark. EPIC ANALYST: David Chavira PA-C. DESCRIPTION OF PROCEDURE: The patient was brought emergently from the intensive care unit to the operating room and placed on the operating room table in a supine position. Ballesteros catheter was already in place. After appropriate anesthetic her abdomen was prepped and draped in usual fashion. Midline incision was made from the umbilicus to the symphysis pubis carrying dissection down into the abdomen encountering cloudy fluid which was from mid abdomen into the pelvis and on the left side. This was irrigated free and then the omentum and small bowel were bluntly dissected away from the colon encountering a purulent thick abscess from perforation of the proximal sigmoid colon. This was all suctioned from the abdomen and then irrigated with saline solution. The rectosigmoid was then transected using a FRANCISCO 60 stapler and then the sigmoid colon and end descending colon mobilized, a portion of the sigmoid colon was resected at the level of the perforation using a FRANCISCO 60 stapler. I did have to take the incision above the umbilicus to free up the left colon enough to bring out as an end colostomy. A skin ellipse was taken from the left side of the abdomen and then the dissection carried down through the adipose tissue, fascia and muscle and then bringing the descending colon up through the left abdomen for an end colostomy. At this point, we washed out the abdomen with antibiotic solution and then placed a #19 round Chance-Harris drain into the pelvis through a left-sided abdominal stab incision securing it to the abdominal wall using 3-0 nylon suture. The posterior peritoneum and fascia were reapproximated using running #1 chromic catgut suture, then the anterior fascia reapproximated using both running and interrupted #1 PDS suture Half inch [place] drain placed in the subcutaneous space, secured to the skin using 3-0 nylon suture. Subcutaneous tissue loosely reapproximated using 2-0 plain catgut suture, then the skin was reapproximated using pan. The colostomy was attached to the fascia and skin using 2-0 chromic catgut suture then opened. It was not matured. Dressings were applied and a stoma appliance applied and patient transferred to the intensive care unit in stable condition. I attest to the content of the Intraoperative Record and any orders documented therein. Any exceptio ns are noted below.
[2016-04-14] MEDS: HYDROmorphone INJ 0.5 MG/0.5 ML SYR IV PRN ×2 (18:55→21:12)
[2016-04-14] MEDS: KETOROLAC TROMETHAMINE 30 MG/ML VIAL IV. SCH ×2 (19:04→23:59)
[2016-04-14] MEDS: PIPERACILL/TAZOBAC IV 4.5 GM in DEXTROSE 5% 100ML 100 ML IV SCH (19:48)
[2016-04-14] MEDS ORDERED: METOPROLOL TARTRATE 1 MG/ML VIAL IV ONE (20:24)
[2016-04-14] MEDS: HEPARIN SOD 5000 UNIT/0.5 ML CARP SQ SCH (20:56)
--- NOTE | 2016-04-14 21:11 | Anesthesiology Progress Note ---
Anesthesia Post Op Note Date & Time Apr 14, 2016 at 21:11 Vital Signs Vital Signs Past 12 Hours Date Time Temp Pulse Resp B/P Pulse Ox O2 Delivery O2 Flow Rate FiO2 04/14/16 20:55 66 144/84 04/14/16 20:00 95 Nasal Cannula 5.0 04/14/16 20:00 36.4 04/14/16 19:00 36.4 78 18 145/84 90 Nasal Cannula 5 04/14/16 18:50 36.4 93 17 148/71 93 Mask 6 04/14/16 18:40 36.4 81 15 131/70 96 Mask 6 04/14/16 18:30 36.4 74 18 130/70 93 Mask 6 04/14/16 16:00 95 Nasal Cannula 2.0 04/14/16 16:00 38.3 101 23 106/69 95 Nasal Cannula 2.0 04/14/16 14:42 38.3 105 25 117/71 96 Nasal Cannula 2.0 04/14/16 14:20 113 18 115/84 96 Nasal Cannula 2.0 04/14/16 13:33 37.5 100 18 103/76 96 Nasal Cannula 2.0 04/14/16 13:01 101 18 109/73 97 Room Air 04/14/16 12:36 101 15 121/77 91 Nasal Cannula 2.0 04/14/16 10:27 36.6 105 24 132/80 85 Room Air 04/14/16 10:22 112 Notes Mental Status: alert / awake / arousable, participated in evaluation Pt Amnestic to Procedure: Yes Nausea / Vomiting: adequately controlled Pain: adequately controlled Airway Patency, RR, SpO2: stable & adequate BP & HR: stable & adequate Hydration State: stable & adequate Anesthetic Complications: no major complications apparent
[2016-04-14] MEDS ORDERED: NURSING VERBAL MED ORDER PRN (21:15)
[2016-04-14 21:34] LABS: BUN/CREATININE RATIO 12.3 (10-20); CALCIUM 7.6 mg/dl (8.5-10.1); CREATININE 0.7 mg/dl (0.60-1.20); POTASSIUM 3.3 mmol/L (3.5-5.1)
[2016-04-14] MEDS: POTASSIUM CHLORIDE INJ 40 MEQ in D5W AND NSS 1,000 ML IV SCH (21:45)
[2016-04-14] MEDS: POTASSIUM CHLR 10 MEQ / WTR 10 MEQ in PREMIXED WATER 100 ML IV SCH ×2 (21:57→23:10)
[2016-04-14] MEDS: METOPROLOL TARTRATE 1 MG/ML VIAL IV. SCH (23:58)
[2016-04-15] VITALS (35 sets, daily range): BP systolic 101–136; BP diastolic 59–88; PULSE 52–81; TEMP 36.5–36.7; O2SAT 91–99
[2016-04-15] MEDS: HYDROmorphone INJ 0.5 MG/0.5 ML SYR IV PRN ×5 (02:17→23:50)
[2016-04-15] MEDS: LORAZEPAM INJ 0.5 MG in SYRINGE 0.75 ML IV PRN (02:55)
[2016-04-15] MEDS ORDERED: LORAZEPAM 2 MG/ML 1 ML VIAL IV PRN (03:00)
[2016-04-15] MEDS: PIPERACILL/TAZOBAC IV 4.5 GM in DEXTROSE 5% 100ML 100 ML IV SCH ×3 (04:01→19:59)
[2016-04-15] MEDS: METOPROLOL TARTRATE 1 MG/ML VIAL IV. SCH (04:01)
--- NOTE | 2016-04-15 05:34 | Surgery Progress Note ---
Surgery Progress Note Date of Service Apr 15, 2016. Subjective more comfortable, vitals much more stable, afeb Objective Vital Signs: Date Time Temp Pulse Resp B/P Pulse Ox O2 Delivery O2 Flow Rate FiO2 04/15/16 04:01 76 106/60 04/15/16 04:00 36.5 04/15/16 04:00 96 Nasal Cannula 2.0 04/15/16 03:59 77 12 106/60 95 04/15/16 02:59 81 20 117/88 93 04/15/16 01:59 58 23 136/75 96 04/15/16 00:59 56 14 133/75 95 04/15/16 00:01 36.5 04/14/16 23:59 96 Nasal Cannula 3.0 04/14/16 23:59 69 14 123/73 95 04/14/16 23:58 63 115/71 04/14/16 23:29 74 14 115/71 95 04/14/16 22:59 71 15 124/83 95 04/14/16 22:29 85 16 144/91 95 04/14/16 21:59 81 14 125/79 96 04/14/16 21:44 78 12 126/78 97 04/14/16 21:29 76 16 128/72 95 04/14/16 21:14 80 17 121/80 92 04/14/16 20:59 68 16 144/83 96 04/14/16 20:55 66 144/84 04/14/16 20:44 74 16 144/84 95 04/14/16 20:29 68 16 144/78 95 04/14/16 20:14 76 16 145/83 95 04/14/16 20:00 95 Nasal Cannula 5.0 04/14/16 20:00 36.4 04/14/16 19:59 76 16 157/84 94 04/14/16 19:53 81 17 156/81 93 04/14/16 19:44 79 17 142/78 96 04/14/16 19:29 72 18 134/75 95 04/14/16 19:14 87 18 125/88 90 04/14/16 19:00 36.4 78 18 145/84 90 Nasal Cannula 5 04/14/16 19:00 102 23 146/74 95 04/14/16 18:50 36.4 93 17 148/71 93 Mask 6 04/14/16 18:40 36.4 81 15 131/70 96 Mask 6 04/14/16 18:30 36.4 74 18 130/70 93 Mask 6 04/14/16 16:00 95 Nasal Cannula 2.0 04/14/16 16:00 38.3 101 23 106/69 95 Nasal Cannula 2.0 04/14/16 14:42 38.3 105 25 117/71 96 Nasal Cannula 2.0 04/14/16 14:20 113 18 115/84 96 Nasal Cannula 2.0 04/14/16 13:33 37.5 100 18 103/76 96 Nasal Cannula 2.0 04/14/16 13:01 101 18 109/73 97 Room Air 04/14/16 12:36 101 15 121/77 91 Nasal Cannula 2.0 04/14/16 10:27 36.6 105 24 132/80 85 Room Air 04/14/16 10:22 112 Physical Exam: TOI drainage General Appearance: no apparent distress Respiratory/Chest: no respiratory distress Abdomen: + distended, + tenderness Incision(s): intact Laboratory Results: Results Past 24 Hours Test 04/14/16 11:05 04/14/16 11:15 04/14/16 15:13 04/14/16 15:45 Range/Units Prothrombin Time 11.1 9.0-12.0 SECONDS Prothromb Time International Ratio 1.0 0.9-1.1 Activated Partial Thromboplast Time 27.0 21.0-31.0 SECONDS Partial Thromboplastin Ratio 1.0 White Blood Count 7.99 4.8-10.8 K/uL Red Blood Count 4.05 4.2-5.4 M/uL Hemoglobin 13.0 12.0-16.0 g/dL Hematocrit 36.9 37-47 % Mean Corpuscular Volume 91.1 80-100 fL Mean Corpuscular Hemoglobin 32.1 25-34 pg Mean Corpuscular Hemoglobin Concent 35.2 32-36 g/dl Platelet Count 329 130-400 K/uL Mean Platelet Volume 9.0 7.4-10.4 fL Neutrophils (%) (Auto) 87.1 % Lymphocytes (%) (Auto) 6.1 % Monocytes (%) (Auto) 5.3 % Eosinophils (%) (Auto) 0.1 % Basophils (%) (Auto) 0.1 % Neutrophils # (Auto) 6.96 1.4-6.5 K/uL Lymphocytes # (Auto) 0.49 1.2-3.4 K/uL Monocytes # (Auto) 0.42 0.11-0.59 K/uL Eosinophils # (Auto) 0.01 0-0.5 K/uL Basophils # (Auto) 0.01 0-0.2 K/uL RDW Standard Deviation 41.9 36.4-46.3 fL RDW Coefficient of Variation 12.5 11.5-14.5 % Immature Granulocyte % (Auto) 1.3 % Immature Granulocyte # (Auto) 0.10 0.00-0.02 K/uL Sodium Level 140 142 136-145 mmol/L Potassium Level 2.9 2.9 3.5-5.1 mmol/L Chloride Level 103 105 98-107 mmol/L Carbon Dioxide Level 25 25 21-32 mmol/L Anion Gap 12.0 12.0 3-11 mmol/L Blood Urea Nitrogen 12 9 7-18 mg/dl Creatinine 0.59 0.59 0.60-1.20 mg/dl Est Creatinine Clear Calc Drug Dose 88.9 88.9 ml/min Estimated GFR () 111.5 111.5 Estimated GFR (Non- 96.2 96.2 BUN/Creatinine Ratio 20.1 15.5 10-20 Random Glucose 120 126 70-99 mg/dl Calcium Level 8.9 8.2 8.5-10.1 mg/dl Total Bilirubin 0.7 0.2-1 mg/dl Direct Bilirubin 0.2 0-0.2 mg/dl Aspartate Amino Transf (AST/SGOT) 28 15-37 U/L Alanine Aminotransferase (ALT/SGPT) 45 12-78 U/L Alkaline Phosphatase 139 45-117 U/L Total Protein 7.0 6.4-8.2 gm/dl Albumin 3.1 3.4-5.0 gm/dl Lipase 65 73-393 U/L Lactic Acid Level 1.2 0.4-2.0 mmol/L Urine Color YELLOW Urine Appearance CLEAR CLEAR Urine pH 5.0 4.5-7.5 Urine Specific [place] > 1.045 1.000-1.030 Urine Protein NEG NEG Urine Glucose (UA) NEG NEG Urine Ketones 1+ NEG Urine Occult Blood 1+ NEG Urine Nitrite POS NEG Urine Bilirubin NEG NEG Urine Urobilinogen NEG NEG Urine Leukocyte Esterase NEG NEG Urine WBC (Auto) 1-5 0-5 /hpf Urine RBC (Auto) 0-4 0-4 /hpf Urine Hyaline Casts (Auto) 1-5 0-5 /lpf Urine Epithelial Cells (Auto) 20-30 0-5 /lpf Urine Bacteria (Auto) 2+ NEG Test 04/14/16 21:10 04/15/16 05:00 Range/Units Sodium Level 137 136-145 mmol/L Potassium Level 3.3 3.5-5.1 mmol/L Chloride Level 102 98-107 mmol/L Carbon Dioxide Level 27 21-32 mmol/L Anion Gap 8.0 3-11 mmol/L Blood Urea Nitrogen 9 7-18 mg/dl Creatinine 0.70 0.60-1.20 mg/dl Est Creatinine Clear Calc Drug Dose 75.0 ml/min Estimated GFR () 105.4 Estimated GFR (Non- 90.9 BUN/Creatinine Ratio 12.3 10-20 Random Glucose 228 70-99 mg/dl Calcium Level 7.6 8.5-10.1 mg/dl Microbiology Results 04/14/16 Blood Culture, Received Pending 04/14/16 Blood Culture, Received Pending Assessment & Plan 04/15/16-much more stable but req IV meds- will allow sips but no po meds yet- cont atbx, drain, ICU mgt for now. check labs 04/14/16- admit to ICU with perforated diverticulitis- NPO, IV fluids, atbx pain control, monitor progress closely monitor, may need IV beta rachelle discussed with daughter- Tricia Ibrahim [phone] 04/14/16- admit to ICU with perforated diverticulitis- NPO, IV fluids, atbx pain control, monitor progress closely monitor, may need IV beta rachelle discussed with grayson Ibrahim [phone]
[2016-04-15] MEDS: POTASSIUM CHLORIDE INJ 40 MEQ in D5W AND NSS 1,000 ML IV SCH (05:52)
[2016-04-15] MEDS: KETOROLAC TROMETHAMINE 30 MG/ML VIAL IV. SCH ×4 (05:53→23:49)
[2016-04-15 06:08] LABS: COMPLETE YES; IG% 0.4 %; LYMPH % 6.5 %; LYMPH ABS # 0.81 K/uL (1.2-3.4); MEAN CELL VOLUME 92.5 fL (80-100); MEAN CORPUSCULAR HEMOGLOBIN 31.6 pg (25-34); MEAN CORPUSCULAR HGB CONC 34.2 g/dl (32-36); MEAN PLATELET VOLUME 8.8 fL (7.4-10.4); MONO % 4.1 %; PLATELET COUNT 312 K/uL (130-400); RED BLOOD COUNT 3.35 M/uL (4.2-5.4); WHITE BLOOD COUNT 12.45 K/uL (4.8-10.8)
[2016-04-15 06:53] LABS: ALB/GLOB RATIO 0.6 (0.9-2); BUN/CREATININE RATIO 13.3 (10-20); CALCIUM 7.8 mg/dl (8.5-10.1); CREATININE 0.67 mg/dl (0.60-1.20); MAGNESIUM 1.3 mg/dl (1.8-2.4); POTASSIUM 3.8 mmol/L (3.5-5.1)
[2016-04-15] MEDS ORDERED: SODIUM PHOSPHATE 3 MMOL/1 ML INFUSION IV STA (07:16)
[2016-04-15] MEDS ORDERED: MAGNESIUM SULFATE 1GM / D5W 1 GM in PREMIXED IN D5W 100 ML IV STA (07:17)
--- NOTE | 2016-04-15 07:43 | DIAGNOSTIC IMAGING REPORT ---
CHEST ONE VIEW PORTABLE CLINICAL HISTORY: INTUBATED tube position COMPARISON STUDY: 05/12/2016 FINDINGS: Small parenchymal infiltrate left base. Slight blunting left lateral costophrenic angle. Aeration right base is improved. Mid to upper lungs are considered clear. IMPRESSION: Moderately improved exam. Small residual parenchymal infiltrate left base. Right base is now clear. Electronically signed by: Aurelio Rodriguez M.D. 04/15/2016 7:41 AM Dictated Date/Time: 04/15/2016 7:40 AM
[2016-04-15] MEDS ORDERED: SODIUM PHOSPHATE INJ 15 MMOL in SODIUM CHLORIDE 0.9% 250ML 250 ML IV SCH (08:00)
[2016-04-15] MEDS ORDERED: GLUCOSE 40% GEL 15 GM TUBE PO PRN (08:30)
[2016-04-15] MEDS ORDERED: DEXTROSE 50% 50 ML SYR IV PRN (08:30)
[2016-04-15] MEDS ORDERED: GLUCAGON FOR INJ 1 MG VIAL SQ PRN (08:30)
[2016-04-15] MEDS ORDERED: GLUCOSE 10 TABS/TUBE PO PRN (08:30)
[2016-04-15] MEDS: MAGNESIUM SULFATE 1GM / D5W 1 GM in PREMIXED IN D5W 100 ML IV SCH ×2 (09:00→09:58)
[2016-04-15] MEDS: METRONIDAZOLE / NSS 500 MG in PREMIXED NSS 100 ML IV SCH ×3 (09:05→23:09)
[2016-04-15] MEDS: HEPARIN SOD 5000 UNIT/0.5 ML CARP SQ SCH ×2 (09:08→22:24)
--- NOTE | 2016-04-15 10:20 | Critical Care Progress Note ---
Critical Care Progress Note Date of Service Apr 15, 2016. Attending Dr Cardona Subjective Discussed with Dr Clark and emergent sigmoid colectomy with end colostomy went well yesterday. Perforated diverticulitis with peritonitis and abscess found. No fecal peritonitis. Patient feeling much better this morning although still rates her pain as 10/10 but is sitting up in bed with a smile on her face. Objective VITAL SIGNS: were reviewed as below GENERAL: no acute distress SKIN: Warm dry and pink, no rashes, no lesions HEAD: Normocephalic and atraumatic EYES: extraocular muscles intact, pupils equal LUNGS: reduced at bases worse on right side, clear to auscultation elsewhere, taking shallow breaths due to pain, no respiratory distress, no accessory muscle use HEART: Regular rate and rhythm, heart sounds 1+2, no murmurs ABDOMEN: Soft, generalized tenderness with guarding and rebound, bowel sounds present. Colostomy pink with blood drainage, no stool. EXTREMITIES: Warm and well perfused, no calf tenderness/swelling, no pedal edema. NEUROLOGICALLY: Awake alert and oriented without focal deficit. Cranial nerves 2 -12 intact. There is no facial droop. Speech is clear. Vision is grossly normal. Upper and lower limb power and sensation examination normal. MUSCULOSKELETAL: Good muscle tone. No evidence of trauma. x2 peripheral IV lines in place on left arm. Assessment & Plan 66 yo female with Hx diverticulitis, presents with worsening LLQ abdominal pain. Assessment: 1. Sepsis 2. Perforated Diverticulitis and peritonitis with abscesses s/p sigmoid resection with end colostomy 3. Hx Hyperlipidemia 4. Hx Anxiety 5. Hx Hypertension 6. Hx GERD Neuro: Small doses of Dilaudid for pain. Reduced to 0.25mg Q2H PRN as she reacts strongly to this. She appears depressed and has a history of anxiety. Not on SSRI, will hold off treatment currently due to current severe illness. Lorazepam PRN if very anxious , but try to hold off as increased risk of delirium with this. Pulmonary: Wean O2 aim sats >94%, encourage incentive spirometry as likely has some atelectasis on CXR. Hx of lung nodules on previous CT with mild obstructive/restrictive airway disease on PFTs (with bronchodilator reversibility) Cardiovascular: Blood pressure currently stable and will hold metoprolol Hyperlipidemia: hold statin due to NPO and severe illness. Gastrointestinal: Diverticulitis - NPO, Zosyn + metronidazole. NG if she has nausea and vomiting.. NPO - status to be managed by surgery. Perforation and peritonitis s/p sigmoid resection. GERD: pantoprazole 40 mg IV daily Renal//electrolytes Hypokalemia - replace as necessary Hypomagnesemia - 2g Mg sulphate replaced this morning. Continue to monitor Hypophosphatemia - 15 mmol NaPhos. Continue to monitor NSS + 20 meq KCl @ 125 MLS/HR as NPO Endocrine - raised BSGs, stopped D5W, sliding scale ordered, glycemic control consult ordered as discussed on rounds this morning Infectious Disease: Diverticulitis + Peritonitis: Zosyn + Flagyl, consider stepping down to cipro + flagyl or zosyn alone but will leave this to her primary team Initial temperature in the ICU 38.3 - follow up blood cultures Miscellaneous PT/OT + discharge planning VTE/GI Prophylaxis - SCDs + TEDs. Continue heparin 5000 units Q12H. - Pantoprazole 40 mg IV daily Code: DNR as per patient wishes Disposition - Appears medically and hemodynamically stable today. Consider step down to med/ surg later today or tomorrow. Resident Physician Supervision Note: I interviewed and examined the patient. Discussed with Dr. Walker and agree with findings and plan as documented in the note. Any exceptions or clarifications are listed here: The patient's care was discussed on multidisciplinary rounds today. VS, labs, data reviewed. She is doing well post op but overall seems somewhat anxious and also depressed. Dressing and drain looks good. She complains of migraine COTTO and usually takes Excedrin. Acetaminophen added to her med profile - Would avoid NSAIDS presently. She is doing poorly with incentive spirometry and it would benefit her to be out of bed and ambulating soheila. Will order PT/OT. She is stable for transfer to med/surg floor from my standpoint. Documented By: Debi Cardona Data Medications: Current Inpatient Medications Medications (Trade) Dose Ordered Sig/Sara Route Start Time Stop Time Status Last Admin Dose Admin Piperacillin Sod/ Tazobactam Sod/ Dextrose (Zosyn Iv/D5 100ml) 120 ml @ 30 mls/hr Q8H IV 04/14/16 20:00 04/24/16 13:59 04/15/16 04:01 30 MLS/HR Heparin Sodium (Porcine) 5000 unit 5,000 unit Q12 SQ 04/14/16 21:00 05/14/16 13:29 04/15/16 09:08 5,000 UNIT Lorazepam 0.5 mg/ Syringe 1 ml @ 0.5 mls/min Q6 PRN IV 04/14/16 13:30 05/14/16 13:29 04/15/16 02:55 0.5 MLS/MIN Promethazine HCl/ Sodium Chloride (Phenergan Inj/ Nss 50ml) 51 ml @ 204 mls/hr Q6H PRN IV 04/14/16 13:30 05/14/16 13:29 Ondansetron HCl (Zofran Inj) 4 mg Q6H PRN IV 04/14/16 13:30 05/14/16 13:29 04/14/16 14:07 4 MG Ketorolac Tromethamine (Toradol Inj) 30 mg Q6 IV. 04/14/16 18:00 04/16/16 17:59 04/15/16 05:53 30 MG Piperacillin Sod/ Tazobactam Sod 1 ea 1 ea UD PRN N/A 04/14/16 13:45 05/14/16 13:44 Metronidazole/Prmx (Flagyl / Nss/ Premixed Nss) 100 ml @ 100 mls/hr Q8H IV 04/14/16 15:30 04/24/16 15:14 04/15/16 09:05 100 MLS/HR Metoprolol Tartrate (Lopressor Iv) 2.5 mg Q4 IV. 04/15/16 00:00 05/15/16 00:00 Future Hold 04/15/16 04:01 2.5 MG Hydromorphone HCl (Dilaudid Inj) 0.5 mg Q2H PRN IV 04/14/16 21:30 04/28/16 21:29 04/15/16 08:58 0.5 MG Hydromorphone HCl (Dilaudid Inj) 0.25 mg Q2H PRN IV 04/14/16 21:30 04/28/16 21:29 Lorazepam 0.5 mg 0.5 mg Q6H PRN IV 04/15/16 03:00 05/15/16 02:59 Sodium Phosphate/ Sodium Chloride (Sodium Phosphate Inj/Nss 250ml) 255 ml @ 88 mls/hr TODAY@0800 IV 04/15/16 08:00 04/15/16 10:54 04/15/16 08:59 88 MLS/HR Insulin Aspart (novoLOG ASPART) SLIDING SCALE If C... ACHS SC 04/15/16 11:00 05/15/16 10:59 UNV Glucose (Glucose 40% Gel) 15-30 GRAMS 15 GRAMS... UD PRN PO 04/15/16 08:30 05/15/16 08:29 UNV Glucose (Glucose Chew Tab) 4-8 Tablets 4 Tabl... UD PRN PO 04/15/16 08:30 05/15/16 08:29 UNV Dextrose (Dextrose 50% 50ML Syringe) 25-50ML OF 50% DW IV FOR... UD PRN IV 04/15/16 08:30 05/15/16 08:29 UNV Glucagon 1 mg 1 mg UD PRN SQ 04/15/16 08:30 05/15/16 08:29 UNV Potassium Chloride/Sodium Chloride (Nss + 20meq KCl 1000ml) 1,000 ml @ 125 mls/hr Q8H IV 04/15/16 10:00 05/15/16 09:59 UNV I & O: 24-Hour Column 04/15/16 07:59 Intake Total 1707 ml Output Total 820 ml Balance 887 ml Vital Signs: Date Time Temp Pulse Resp B/P Pulse Ox O2 Delivery O2 Flow Rate FiO2 04/15/16 05:59 52 13 104/65 95 04/15/16 04:59 57 13 105/64 96 04/15/16 04:01 76 106/60 04/15/16 04:00 36.5 04/15/16 04:00 96 Nasal Cannula 2.0 04/15/16 03:59 77 12 106/60 95 04/15/16 02:59 81 20 117/88 93 04/15/16 01:59 58 23 136/75 96 04/15/16 00:59 56 14 133/75 95 04/15/16 00:01 36.5 04/14/16 23:59 96 Nasal Cannula 3.0 04/14/16 23:59 69 14 123/73 95 04/14/16 23:58 63 115/71 04/14/16 23:29 74 14 115/71 95 04/14/16 22:59 71 15 124/83 95 04/14/16 22:29 85 16 144/91 95 04/14/16 21:59 81 14 125/79 96 04/14/16 21:44 78 12 126/78 97 04/14/16 21:29 76 16 128/72 95 04/14/16 21:14 80 17 121/80 92 04/14/16 20:59 68 16 144/83 96 04/14/16 20:55 66 144/84 04/14/16 20:44 74 16 144/84 95 04/14/16 20:29 68 16 144/78 95 04/14/16 20:14 76 16 145/83 95 04/14/16 20:00 95 Nasal Cannula 5.0 04/14/16 20:00 36.4 04/14/16 19:59 76 16 157/84 94 04/14/16 19:53 81 17 156/81 93 04/14/16 19:44 79 17 142/78 96 04/14/16 19:29 72 18 134/75 95 04/14/16 19:14 87 18 125/88 90 04/14/16 19:00 36.4 78 18 145/84 90 Nasal Cannula 5 04/14/16 19:00 102 23 146/74 95 04/14/16 18:50 36.4 93 17 148/71 93 Mask 6 04/14/16 18:40 36.4 81 15 131/70 96 Mask 6 04/14/16 18:30 36.4 74 18 130/70 93 Mask 6 04/14/16 16:00 95 Nasal Cannula 2.0 04/14/16 16:00 38.3 101 23 106/69 95 Nasal Cannula 2.0 04/14/16 14:42 38.3 105 25 117/71 96 Nasal Cannula 2.0 04/14/16 14:20 113 18 115/84 96 Nasal Cannula 2.0 04/14/16 13:33 37.5 100 18 103/76 96 Nasal Cannula 2.0 04/14/16 13:01 101 18 109/73 97 Room Air 04/14/16 12:36 101 15 121/77 91 Nasal Cannula 2.0 04/14/16 10:27 36.6 105 24 132/80 85 Room Air 04/14/16 10:22 112 Laboratory Results: Last 24 Hours Test 2/22/17 11:05 04/14/16 11:15 04/14/16 15:13 04/14/16 15:45 Prothrombin Time 11.1 SECONDS Prothromb Time International Ratio 1.0 Activated Partial Thromboplast Time 27.0 SECONDS Partial Thromboplastin Ratio 1.0 White Blood Count 7.99 K/uL Red Blood Count 4.05 M/uL Hemoglobin 13.0 g/dL Hematocrit 36.9 % Mean Corpuscular Volume 91.1 fL Mean Corpuscular Hemoglobin 32.1 pg Mean Corpuscular Hemoglobin Concent 35.2 g/dl Platelet Count 329 K/uL Mean Platelet Volume 9.0 fL Neutrophils (%) (Auto) 87.1 % Lymphocytes (%) (Auto) 6.1 % Monocytes (%) (Auto) 5.3 % Eosinophils (%) (Auto) 0.1 % Basophils (%) (Auto) 0.1 % Neutrophils # (Auto) 6.96 K/uL Lymphocytes # (Auto) 0.49 K/uL Monocytes # (Auto) 0.42 K/uL Eosinophils # (Auto) 0.01 K/uL Basophils # (Auto) 0.01 K/uL RDW Standard Deviation 41.9 fL RDW Coefficient of Variation 12.5 % Immature Granulocyte % (Auto) 1.3 % Immature Granulocyte # (Auto) 0.10 K/uL Sodium Level 140 mmol/L 142 mmol/L Potassium Level 2.9 mmol/L 2.9 mmol/L Chloride Level 103 mmol/L 105 mmol/L Carbon Dioxide Level 25 mmol/L 25 mmol/L Anion Gap 12.0 mmol/L 12.0 mmol/L Blood Urea Nitrogen 12 mg/dl 9 mg/dl Creatinine 0.59 mg/dl 0.59 mg/dl Est Creatinine Clear Calc Drug Dose 88.9 ml/min 88.9 ml/min Estimated GFR () 111.5 111.5 Estimated GFR (Non- 96.2 96.2 BUN/Creatinine Ratio 20.1 15.5 Random Glucose 120 mg/dl 126 mg/dl Calcium Level 8.9 mg/dl 8.2 mg/dl Total Bilirubin 0.7 mg/dl Direct Bilirubin 0.2 mg/dl Aspartate Amino Transf (AST/SGOT) 28 U/L Alanine Aminotransferase (ALT/SGPT) 45 U/L Alkaline Phosphatase 139 U/L Total Protein 7.0 gm/dl Albumin 3.1 gm/dl Lipase 65 U/L Lactic Acid Level 1.2 mmol/L Urine Color YELLOW Urine Appearance CLEAR Urine pH 5.0 Urine Specific [place] > 1.045 Urine Protein NEG Urine Glucose (UA) NEG Urine Ketones 1+ Urine Occult Blood 1+ Urine Nitrite POS Urine Bilirubin NEG Urine Urobilinogen NEG Urine Leukocyte Esterase NEG Urine WBC (Auto) 1-5 /hpf Urine RBC (Auto) 0-4 /hpf Urine Hyaline Casts (Auto) 1-5 /lpf Urine Epithelial Cells (Auto) 20-30 /lpf Urine Bacteria (Auto) 2+ Test 04/14/16 21:10 04/15/16 05:34 Sodium Level 137 mmol/L 139 mmol/L Potassium Level 3.3 mmol/L 3.8 mmol/L Chloride Level 102 mmol/L 104 mmol/L Carbon Dioxide Level 27 mmol/L 27 mmol/L Anion Gap 8.0 mmol/L 8.0 mmol/L Blood Urea Nitrogen 9 mg/dl 9 mg/dl Creatinine 0.70 mg/dl 0.67 mg/dl Est Creatinine Clear Calc Drug Dose 75.0 ml/min 78.3 ml/min Estimated GFR () 105.4 106.9 Estimated GFR (Non- 90.9 92.2 BUN/Creatinine Ratio 12.3 13.3 Random Glucose 228 mg/dl 204 mg/dl Calcium Level 7.6 mg/dl 7.8 mg/dl White Blood Count 12.45 K/uL Red Blood Count 3.35 M/uL Hemoglobin 10.6 g/dL Hematocrit 31.0 % Mean Corpuscular Volume 92.5 fL Mean Corpuscular Hemoglobin 31.6 pg Mean Corpuscular Hemoglobin Concent 34.2 g/dl Platelet Count 312 K/uL Mean Platelet Volume 8.8 fL Neutrophils (%) (Auto) 89.0 % Lymphocytes (%) (Auto) 6.5 % Monocytes (%) (Auto) 4.1 % Eosinophils (%) (Auto) 0.0 % Basophils (%) (Auto) 0.0 % Neutrophils # (Auto) 11.08 K/uL Lymphocytes # (Auto) 0.81 K/uL Monocytes # (Auto) 0.51 K/uL Eosinophils # (Auto) 0.00 K/uL Basophils # (Auto) 0.00 K/uL RDW Standard Deviation 43.7 fL RDW Coefficient of Variation 12.8 % Immature Granulocyte % (Auto) 0.4 % Immature Granulocyte # (Auto) 0.05 K/uL Phosphorus Level 2.0 mg/dl Magnesium Level 1.3 mg/dl Total Bilirubin 0.4 mg/dl Aspartate Amino Transf (AST/SGOT) 27 U/L Alanine Aminotransferase (ALT/SGPT) 45 U/L Alkaline Phosphatase 123 U/L Total Protein 5.5 gm/dl Albumin 2.1 gm/dl Globulin 3.4 gm/dl Albumin/Globulin Ratio 0.6 Resident Tracking Resident Involvement: Resident Care Provided Care Provided: Adult Hospital Medicine (ICU)
[2016-04-15] MEDS: NSS + 20MEQ KCL 1000ML 1,000 ML IV SCH ×2 (11:22→19:58)
[2016-04-15] MEDS: PANTOprazole INJ 40 MG in SYRINGE 0 ML IV SCH (11:24)
[2016-04-15] MEDS: INSULIN ASPART 100 UNITS/ML 3 ML PEN SC SCH ×3 (11:44→21:00)
[2016-04-15] MEDS ORDERED: PHARMACY GLYCEMIC MGMT CONSULT SCH (12:42)
--- NOTE | 2016-04-15 13:46 | Pharmacy Progress Note ---
Glycemic Control Intl Consult Date of Service Apr 15, 2016. Scope Glycemic Pharmacist consulted by Dr Walker on 04/15/16 for glycemic control and to write orders per [facility] inpatient glycemic control protocol Objective Weight (Kilograms): 67.500 Accuchecks BSG (last 24hrs): Test 04/14/16 15:13 04/14/16 21:10 04/15/16 05:34 04/15/16 11:37 Random Glucose 126 mg/dl (70-99) 228 mg/dl (70-99) 204 mg/dl (70-99) Bedside Glucose 183 mg/dl (70-90) Laboratory Data (last 24hrs) Test 04/14/16 15:13 04/14/16 21:10 04/15/16 05:34 Anion Gap 12.0 mmol/L 8.0 mmol/L 8.0 mmol/L BUN/Creatinine Ratio 15.5 12.3 13.3 Blood Urea Nitrogen 9 mg/dl 9 mg/dl 9 mg/dl Creatinine 0.59 mg/dl 0.70 mg/dl 0.67 mg/dl Potassium Level 2.9 mmol/L 3.3 mmol/L 3.8 mmol/L Sodium Level 142 mmol/L 137 mmol/L 139 mmol/L White Blood Count 12.45 K/uL Red Blood Count 3.35 M/uL Hemoglobin 10.6 g/dL Hematocrit 31.0 % Mean Corpuscular Volume 92.5 fL Mean Corpuscular Hemoglobin 31.6 pg Mean Corpuscular Hemoglobin Concent 34.2 g/dl Platelet Count 312 K/uL Mean Platelet Volume 8.8 fL Neutrophils (%) (Auto) 89.0 % Lymphocytes (%) (Auto) 6.5 % Monocytes (%) (Auto) 4.1 % Eosinophils (%) (Auto) 0.0 % Basophils (%) (Auto) 0.0 % Neutrophils # (Auto) 11.08 K/uL Lymphocytes # (Auto) 0.81 K/uL Monocytes # (Auto) 0.51 K/uL Eosinophils # (Auto) 0.00 K/uL Basophils # (Auto) 0.00 K/uL Recent Pertinent Medications Outpatient Anti-diabetic Regimen: * no prior dx of DM * A1c = ? The patient is currently receiving: * Basal insulin: none currently * Correctional Insulin: Novolog Correction per scale ACHS Goal Range: Low 140 mg/dL - High 180 mg/dL Correction Factor: 35 mg/dL/unit * Prandial insulin: Per carb ratio of 1 unit per 15 grams CHO consumed * Oral Agents: none currently Risk Factors for Insulin Resistance: * Steroids: Dexamethasone 8mg IV given in OR 04/15/16 * Infection: peritonitis secondary to perf diverticulitis; receiving Zosyn + Flagyl IV * IVF: was receiving D5Ms + 40mEq KCl @ 125cc/hr overnight, this has been changed to NS + 20mEq KCl @125cc/hr * Recent Surgery: POD # 1 s/p exp lap w/ sig colectomy, washout and colostomy * Diet: NPO Assessment & Plan ASSESSMENT: 04/15/16 * Patient admitted to ICU following exp lap for perf diverticulitis / peritonitis * No prior dx of diabetes or pre-diabetes; will check A1c with AM labs tomorrow * Patient's first random BSG 126, however BSGs [place] to 228 following surgery - likely secondary to the dexamethasone 8mg IV given in the OR combined w/ surgical stressors and dextrose containing maintenance IVF's. * Last BSG at noontime down to 183, with no insulin therapy. Suspect that patient's glycemic control will improve as the day progresses as the effectes of dexamethasone begin to dissipate over the next 24-48 hours. * The current orders for Novolog CF and CR are appropriate starting points for insulin naive patient * Would refrain from starting basal insulin in this patient given NPO status and expected improved insulin sensitivity over the next 24 hrs - will reeval tomorrow AM when A1c results and more BSGs available PLAN FOR INPATIENT GLYCEMIC CONTROL: * No basal insulin at this time * Correctional Insulin with NOVOLOG per scale ACHS or Q6hrs while NPO * Continue Goal Range of Low 140 mg/dL - High 180 mg/dL * Continue Correction Factor of 35 mg/dL/unit * Continue Nutritional / Prandial insulin per carb ratio of 1 unit per 15 grams CHO consumed * Please note that the plan above was derived based on current level of insulin resistance and hospital stress. These recommendations are appropriate for inpatient admission only. Plan of care upon discharge will need to be reassessed to avoid potential outpatient hypo/hyperglycemia. Thank you.
[2016-04-15] MEDS ORDERED: THIAMINE HCL 100 MG/ML 2 ML VIAL IM STA (14:01)
[2016-04-15] MEDS: ONDANSETRON INJ 2 MG/ML 2 ML VIAL IV PRN (14:15)
[2016-04-15 16:25] LABS: BUN/CREATININE RATIO 15.6 (10-20); CREATININE 0.59 mg/dl (0.60-1.20); MAGNESIUM 2.5 mg/dl (1.8-2.4); PHOSPHORUS 2.2 mg/dl (2.5-4.9); POTASSIUM 3.5 mmol/L (3.5-5.1)
[2016-04-15] MEDS: ACETAMINOPHEN IV 100 ML IV PRN (17:49)
--- NOTE | 2016-04-15 17:51 | Progress Note ---
Subjective Date of Service: Apr 15, 2016. Subjective Pt evaluation today including: conversation w/ patient, physical exam, lab review, review of studies, review of inpatient medication list Saw/examined the patient in room 110 She is soft spoken, tells me her pain is controlled She is doing sips of water for now Reserved, flat affect when speaking Denies any symptoms; states pain is controlled Problem List Medical Problems: (1) Diffuse abdominal pain Status: Acute (2) Perforated diverticulum Status: Acute Review of Systems Constitutional: No chills, No fever Respiratory: No shortness of breath Cardiac: No chest pain Abdomen: + pain, No GI bleeding, No constipation, No diarrhea, No nausea, No vomiting Musculoskeletal: No joint pain Medications Current Inpatient Medications Medications (Trade) Dose Ordered Sig/Sara Route Start Time Stop Time Status Last Admin Dose Admin Piperacillin Sod/ Tazobactam Sod/ Dextrose (Zosyn Iv/D5 100ml) 120 ml @ 30 mls/hr Q8H IV 04/14/16 20:00 04/24/16 13:59 04/15/16 11:36 30 MLS/HR Heparin Sodium (Porcine) 5000 unit 5,000 unit Q12 SQ 04/14/16 21:00 05/14/16 13:29 04/15/16 09:08 5,000 UNIT Lorazepam 0.5 mg/ Syringe 1 ml @ 0.5 mls/min Q6 PRN IV 04/14/16 13:30 05/14/16 13:29 04/15/16 02:55 0.5 MLS/MIN Promethazine HCl/ Sodium Chloride (Phenergan Inj/ Nss 50ml) 51 ml @ 204 mls/hr Q6H PRN IV 04/14/16 13:30 05/14/16 13:29 Ondansetron HCl (Zofran Inj) 4 mg Q6H PRN IV 04/14/16 13:30 05/14/16 13:29 04/15/16 14:15 4 MG Ketorolac Tromethamine (Toradol Inj) 30 mg Q6 IV. 04/14/16 18:00 04/16/16 17:59 04/15/16 11:41 30 MG Piperacillin Sod/ Tazobactam Sod 1 ea 1 ea UD PRN N/A 04/14/16 13:45 05/14/16 13:44 Metronidazole/Prmx (Flagyl / Nss/ Premixed Nss) 100 ml @ 100 mls/hr Q8H IV 04/14/16 15:30 04/24/16 15:14 04/15/16 15:35 100 MLS/HR Metoprolol Tartrate (Lopressor Iv) 2.5 mg Q4 IV. 04/15/16 00:00 05/15/16 00:00 Future Hold 04/15/16 04:01 2.5 MG Hydromorphone HCl (Dilaudid Inj) 0.5 mg Q2H PRN IV 04/14/16 21:30 04/28/16 21:29 Future Hold 04/15/16 08:58 0.5 MG Hydromorphone HCl (Dilaudid Inj) 0.25 mg Q2H PRN IV 04/14/16 21:30 04/15/16 15:36 0.25 MG Lorazepam (Ativan Inj) 0.5 mg Q6H PRN IV 04/15/16 03:00 05/15/16 02:59 Insulin Aspart (novoLOG ASPART) SLIDING SCALE If C... ACHS SC 04/15/16 11:00 05/15/16 10:59 04/15/16 11:44 1 UNITS Glucose (Glucose 40% Gel) 15-30 GRAMS 15 GRAMS... UD PRN PO 04/15/16 08:30 05/15/16 08:29 Glucose (Glucose Chew Tab) 4-8 Tablets 4 Tabl... UD PRN PO 04/15/16 08:30 05/15/16 08:29 Dextrose (Dextrose 50% 50ML Syringe) 25-50ML OF 50% DW IV FOR... UD PRN IV 04/15/16 08:30 05/15/16 08:29 Glucagon 1 mg 1 mg UD PRN SQ 04/15/16 08:30 05/15/16 08:29 Potassium Chloride/Sodium Chloride 1,000 ml @ 125 mls/hr Q8H IV 04/15/16 11:00 05/15/16 10:59 04/15/16 11:22 125 MLS/HR Pantoprazole Sodium/Syringe (Protonix Inj/ Syringe) 10 ml @ 5 mls/min DAILY@11 IV 04/15/16 11:00 05/15/16 10:59 04/15/16 11:24 5 MLS/MIN Miscellaneous Information (Consult Glycemic Management Pharmacy) 1 ea UD N/A 04/15/16 12:42 05/15/16 12:41 Thiamine HCl 100 mg 100 mg QAM IM 04/16/16 09:00 05/16/16 08:59 Acetaminophen (Ofirmev Iv) 100 ml @ 400 mls/hr Q8H PRN IV 04/15/16 16:45 05/15/16 16:44 Objective Vital Signs Date Time Temp Pulse Resp B/P Pulse Ox O2 Delivery O2 Flow Rate FiO2 04/15/16 15:59 70 15 120/67 96 Nasal Cannula 2.0 04/15/16 15:30 96 Nasal Cannula 2.0 04/15/16 15:24 75 13 129/75 95 04/15/16 15:00 57 16 97 04/15/16 14:00 69 17 96 04/15/16 13:59 76 19 123/59 95 Nasal Cannula 2.0 04/15/16 13:00 70 15 96 04/15/16 11:59 78 27 118/66 91 04/15/16 11:41 36.5 75 21 101/60 92 Nasal Cannula 2.0 04/15/16 11:40 74 18 101/60 94 04/15/16 11:30 94 Nasal Cannula 2.0 04/15/16 11:00 71 28 94 04/15/16 09:59 73 14 101/60 94 Nasal Cannula 2.0 04/15/16 09:00 73 24 96 04/15/16 08:59 66 15 122/69 97 Nasal Cannula 2.0 04/15/16 08:15 94 Nasal Cannula 2.0 04/15/16 08:00 73 21 96 04/15/16 07:59 36.6 76 18 112/65 96 Nasal Cannula 2.0 04/15/16 07:00 55 14 97 04/15/16 05:59 52 13 104/65 95 04/15/16 04:59 57 13 105/64 96 04/15/16 04:01 76 106/60 04/15/16 04:00 36.5 04/15/16 04:00 96 Nasal Cannula 2.0 04/15/16 03:59 77 12 106/60 95 04/15/16 02:59 81 20 117/88 93 04/15/16 01:59 58 23 136/75 96 04/15/16 00:59 56 14 133/75 95 04/15/16 00:01 36.5 04/14/16 23:59 96 Nasal Cannula 3.0 04/14/16 23:59 69 14 123/73 95 04/14/16 23:58 63 115/71 04/14/16 23:29 74 14 115/71 95 04/14/16 22:59 71 15 124/83 95 04/14/16 22:29 85 16 144/91 95 04/14/16 21:59 81 14 125/79 96 04/14/16 21:44 78 12 126/78 97 04/14/16 21:29 76 16 128/72 95 04/14/16 21:14 80 17 121/80 92 04/14/16 20:59 68 16 144/83 96 04/14/16 20:55 66 144/84 04/14/16 20:44 74 16 144/84 95 04/14/16 20:29 68 16 144/78 95 04/14/16 20:14 76 16 145/83 95 04/14/16 20:00 95 Nasal Cannula 5.0 04/14/16 20:00 36.4 04/14/16 19:59 76 16 157/84 94 04/14/16 19:53 81 17 156/81 93 04/14/16 19:44 79 17 142/78 96 04/14/16 19:29 72 18 134/75 95 04/14/16 19:14 87 18 125/88 90 04/14/16 19:00 36.4 78 18 145/84 90 Nasal Cannula 5 04/14/16 19:00 102 23 146/74 95 04/14/16 18:50 36.4 93 17 148/71 93 Mask 6 04/14/16 18:40 36.4 81 15 131/70 96 Mask 6 04/14/16 18:30 36.4 74 18 130/70 93 Mask 6 Physical Exam General Appearance: no apparent distress Respiratory/Chest: lungs clear, normal breath sounds, no respiratory distress, no accessory muscle use Cardiovascular: regular rate, rhythm, no edema, no murmur Abdomen: normal bowel sounds, + tenderness, + pertinent finding (+colostomy) Extremities: normal inspection, no pedal edema Neurologic/Psychiatric: alert, + depressed affect (flat affect) Laboratory Results Last 24 Hours Test 04/14/16 21:10 04/15/16 05:34 04/15/16 11:37 04/15/16 15:49 Sodium Level 137 mmol/L 139 mmol/L 140 mmol/L Potassium Level 3.3 mmol/L 3.8 mmol/L 3.5 mmol/L Chloride Level 102 mmol/L 104 mmol/L 105 mmol/L Carbon Dioxide Level 27 mmol/L 27 mmol/L 25 mmol/L Anion Gap 8.0 mmol/L 8.0 mmol/L 10.0 mmol/L Blood Urea Nitrogen 9 mg/dl 9 mg/dl 9 mg/dl Creatinine 0.70 mg/dl 0.67 mg/dl 0.59 mg/dl Est Creatinine Clear Calc Drug Dose 75.0 ml/min 78.3 ml/min 92.4 ml/min Estimated GFR () 105.4 106.9 111.5 Estimated GFR (Non- 90.9 92.2 96.2 BUN/Creatinine Ratio 12.3 13.3 15.6 Random Glucose 228 mg/dl 204 mg/dl 133 mg/dl Calcium Level 7.6 mg/dl 7.8 mg/dl 8.0 mg/dl White Blood Count 12.45 K/uL Red Blood Count 3.35 M/uL Hemoglobin 10.6 g/dL Hematocrit 31.0 % Mean Corpuscular Volume 92.5 fL Mean Corpuscular Hemoglobin 31.6 pg Mean Corpuscular Hemoglobin Concent 34.2 g/dl Platelet Count 312 K/uL Mean Platelet Volume 8.8 fL Neutrophils (%) (Auto) 89.0 % Lymphocytes (%) (Auto) 6.5 % Monocytes (%) (Auto) 4.1 % Eosinophils (%) (Auto) 0.0 % Basophils (%) (Auto) 0.0 % Neutrophils # (Auto) 11.08 K/uL Lymphocytes # (Auto) 0.81 K/uL Monocytes # (Auto) 0.51 K/uL Eosinophils # (Auto) 0.00 K/uL Basophils # (Auto) 0.00 K/uL RDW Standard Deviation 43.7 fL RDW Coefficient of Variation 12.8 % Immature Granulocyte % (Auto) 0.4 % Immature Granulocyte # (Auto) 0.05 K/uL Phosphorus Level 2.0 mg/dl 2.2 mg/dl Magnesium Level 1.3 mg/dl 2.5 mg/dl Total Bilirubin 0.4 mg/dl Aspartate Amino Transf (AST/SGOT) 27 U/L Alanine Aminotransferase (ALT/SGPT) 45 U/L Alkaline Phosphatase 123 U/L Total Protein 5.5 gm/dl Albumin 2.1 gm/dl Globulin 3.4 gm/dl Albumin/Globulin Ratio 0.6 Bedside Glucose 183 mg/dl Assessment and Plan This is a 66 year old female with PMH of diverticulosis, HTN, GERD, HLD presents with an acute perforated diverticulitis Acute Perforated Diverticulitis s/p sigmoid resection/colostomy continue IV antibiotics pain medications as needed - to note, she is on low dose due to delirium currently NPO IVFs sips of water as per surgery HTN currently, blood pressure is controlled hold antihypertensives while NPO status Flat Affect, possible Depression again, hold oral agents while she is NPO, while discuss depression/anxiety medications when she is more stable DVT ppx subq heparin DNR
[2016-04-15] MEDS: PROMETHAZINE HCL INJ 25 MG in SODIUM CHLORIDE 0.9% 50ML 50 ML IV PRN (18:44)
[2016-04-15] MEDS ORDERED: POTASSIUM PHOS 3 MMOL/1 ML INFUSION IV STA (19:00)
[2016-04-15] MEDS ORDERED: POTASSIUM PHOSPHATE INJ 21 MMOL in SODIUM CHLORIDE 0.9% 500ML 500 ML IV SCH (19:30)
[2016-04-16] MEDS: NSS + 20MEQ KCL 1000ML 1,000 ML IV SCH ×3 (03:00→20:43)
[2016-04-16 03:43] VITALS: BP 117/75; PULSE 61; TEMP 36.3; O2SAT 97
[2016-04-16] MEDS: PIPERACILL/TAZOBAC IV 4.5 GM in DEXTROSE 5% 100ML 100 ML IV SCH ×3 (04:37→19:59)
[2016-04-16] MEDS: KETOROLAC TROMETHAMINE 30 MG/ML VIAL IV. SCH ×2 (05:45→13:18)
[2016-04-16] MEDS: INSULIN ASPART 100 UNITS/ML 3 ML PEN SC SCH (07:00)
[2016-04-16 07:02] LABS: BASO % 0.1 %; BASO ABS # 0.01 K/uL (0-0.2); COMPLETE YES; EOS % 0.2 %; IG% 0.5 %; LYMPH % 12.1 %; LYMPH ABS # 1.64 K/uL (1.2-3.4); MEAN CELL VOLUME 92.9 fL (80-100); MEAN CORPUSCULAR HEMOGLOBIN 31.6 pg (25-34); MEAN PLATELET VOLUME 9.1 fL (7.4-10.4); MONO % 5.2 %; NEUT % 81.9 %; PLATELET COUNT 366 K/uL (130-400); RED BLOOD COUNT 3.23 M/uL (4.2-5.4); WHITE BLOOD COUNT 13.54 K/uL (4.8-10.8)
--- NOTE | 2016-04-16 07:05 | Surgery Progress Note ---
Surgery Progress Note Date of Service Apr 16, 2016. Subjective + pain controlled, No nausea, No vomiting comfortable Objective Vital Signs: Date Time Temp Pulse Resp B/P Pulse Ox O2 Delivery O2 Flow Rate FiO2 04/16/16 03:43 36.3 61 20 117/75 97 Nasal Cannula 2.0 04/15/16 23:45 36.7 71 18 129/78 95 Room Air 04/15/16 22:00 56 17 133/76 97 Nasal Cannula 2.0 04/15/16 20:00 Nasal Cannula 2.0 04/15/16 20:00 36.6 68 14 102/65 97 Nasal Cannula 2.0 04/15/16 18:59 61 21 96 Nasal Cannula 2.0 04/15/16 18:21 60 14 114/81 99 04/15/16 18:00 59 15 98 04/15/16 17:59 63 17 114/81 98 04/15/16 17:00 62 14 98 04/15/16 15:59 70 15 120/67 96 Nasal Cannula 2.0 04/15/16 15:30 96 Nasal Cannula 2.0 04/15/16 15:24 75 13 129/75 95 04/15/16 15:00 57 16 97 04/15/16 14:00 69 17 96 04/15/16 13:59 76 19 123/59 95 Nasal Cannula 2.0 04/15/16 13:00 70 15 96 04/15/16 11:59 78 27 118/66 91 04/15/16 11:41 36.5 75 21 101/60 92 Nasal Cannula 2.0 04/15/16 11:40 74 18 101/60 94 04/15/16 11:30 94 Nasal Cannula 2.0 04/15/16 11:00 71 28 94 04/15/16 09:59 73 14 101/60 94 Nasal Cannula 2.0 04/15/16 09:00 73 24 96 04/15/16 08:59 66 15 122/69 97 Nasal Cannula 2.0 04/15/16 08:15 94 Nasal Cannula 2.0 04/15/16 08:00 73 21 96 04/15/16 07:59 36.6 76 18 112/65 96 Nasal Cannula 2.0 General Appearance: no apparent distress Respiratory/Chest: no respiratory distress Abdomen: + distended (mild distention, stoma viable) Incision(s): intact Laboratory Results: Results Past 24 Hours Test 04/15/16 11:37 04/15/16 15:49 04/15/16 22:30 04/16/16 06:22 Range/Units Bedside Glucose 183 104 101 70-90 mg/dl Sodium Level 140 136-145 mmol/L Potassium Level 3.5 3.5-5.1 mmol/L Chloride Level 105 98-107 mmol/L Carbon Dioxide Level 25 21-32 mmol/L Anion Gap 10.0 3-11 mmol/L Blood Urea Nitrogen 9 7-18 mg/dl Creatinine 0.59 0.60-1.20 mg/dl Est Creatinine Clear Calc Drug Dose 92.4 ml/min Estimated GFR () 111.5 Estimated GFR (Non- 96.2 BUN/Creatinine Ratio 15.6 10-20 Random Glucose 133 70-99 mg/dl Calcium Level 8.0 8.5-10.1 mg/dl Phosphorus Level 2.2 2.5-4.9 mg/dl Magnesium Level 2.5 1.8-2.4 mg/dl Test 04/16/16 06:23 Range/Units Microbiology Results 04/15/16 Urine Culture, Received Pending Assessment & Plan 04/16/16- try clear liquids, PT/OT- mobilize, cont IV atbx- suspect pt will need 4-5 addnl days in hospital, possibly extended care/ rehab. Cont IV fluid. Dr Odell covering over weekend 04/15/16-much more stable but req IV meds- will allow sips but no po meds yet- cont atbx, drain, ICU mgt for now. check labs 04/14/16- admit to ICU with perforated diverticulitis- NPO, IV fluids, atbx pain control, monitor progress closely monitor, may need IV beta rachelle discussed with daughter- Tricia Ibrahim [phone] 04/15/16-much more stable but req IV meds- will allow sips but no po meds yet- cont atbx, drain, ICU mgt for now. check labs 04/14/16- admit to ICU with perforated diverticulitis- NPO, IV fluids, atbx pain control, monitor progress closely monitor, may need IV beta rachelle discussed with daughter- Tricia Ibrahim [phone]
[2016-04-16 07:40] VITALS: BP 130/81; PULSE 62; TEMP 36.5; O2SAT 97
[2016-04-16 07:45] LABS: ALB/GLOB RATIO 0.7 (0.9-2); BUN/CREATININE RATIO 19.8 (10-20); CREATININE 0.61 mg/dl (0.60-1.20); MAGNESIUM 2.3 mg/dl (1.8-2.4); POTASSIUM 3.9 mmol/L (3.5-5.1)
[2016-04-16] MEDS: ONDANSETRON INJ 2 MG/ML 2 ML VIAL IV PRN ×2 (07:47→16:16)
[2016-04-16] MEDS: HYDROmorphone INJ 0.5 MG/0.5 ML SYR IV PRN ×3 (07:47→20:10)
[2016-04-16] MEDS: HEPARIN SOD 5000 UNIT/0.5 ML CARP SQ SCH ×2 (07:49→21:47)
[2016-04-16 08:10] LABS: ESTIMATED AVERAGE GLUCOSE 126 mg/dl; HA1C FLAG Normal (Normal)
[2016-04-16] MEDS: THIAMINE HCL 100 MG/ML 2 ML VIAL IM SCH (08:30)
[2016-04-16] MEDS: METRONIDAZOLE / NSS 500 MG in PREMIXED NSS 100 ML IV SCH ×3 (08:30→23:42)
--- NOTE | 2016-04-16 09:36 | Progress Note ---
Subjective Date of Service: Apr 16, 2016. Subjective Pt evaluation today including: conversation w/ patient, physical exam, lab review, review of studies, review of inpatient medication list Problem List Medical Problems: (1) Diffuse abdominal pain Status: Acute (2) Perforated diverticulum Status: Acute Review of Systems Constitutional: + fatigue, + problem reported (lack of appetite), + weakness, No chills, No fever Respiratory: No cough, No dyspnea at rest, No dyspnea on exertion, No hemoptysis, No shortness of breath, No sputum, No wheezing Abdomen: + pain, No diarrhea, No nausea, No vomiting Psychiatric: + anxiety, + depression symptoms, No anhedonism, No insomnia Heme: No abnormal bleeding/bruising Medications Current Inpatient Medications Medications (Trade) Dose Ordered Sig/Sara Route Start Time Stop Time Status Last Admin Dose Admin Piperacillin Sod/ Tazobactam Sod/ Dextrose (Zosyn Iv/D5 100ml) 120 ml @ 30 mls/hr Q8H IV 04/14/16 20:00 04/24/16 13:59 04/16/16 04:37 30 MLS/HR Heparin Sodium (Porcine) 5000 unit 5,000 unit Q12 SQ 04/14/16 21:00 05/14/16 13:29 04/16/16 07:49 5,000 UNIT Lorazepam 0.5 mg/ Syringe 1 ml @ 0.5 mls/min Q6 PRN IV 04/14/16 13:30 05/14/16 13:29 04/15/16 02:55 0.5 MLS/MIN Promethazine HCl/ Sodium Chloride (Phenergan Inj/ Nss 50ml) 51 ml @ 204 mls/hr Q6H PRN IV 04/14/16 13:30 05/14/16 13:29 04/15/16 18:44 204 MLS/HR Ondansetron HCl (Zofran Inj) 4 mg Q6H PRN IV 04/14/16 13:30 05/14/16 13:29 04/16/16 07:47 4 MG Ketorolac Tromethamine (Toradol Inj) 30 mg Q6 IV. 04/14/16 18:00 04/16/16 17:59 04/16/16 05:45 30 MG Piperacillin Sod/ Tazobactam Sod 1 ea 1 ea UD PRN N/A 04/14/16 13:45 05/14/16 13:44 Metronidazole/Prmx (Flagyl / Nss/ Premixed Nss) 100 ml @ 100 mls/hr Q8H IV 04/14/16 15:30 04/24/16 15:14 04/16/16 08:30 100 MLS/HR Metoprolol Tartrate (Lopressor Iv) 2.5 mg Q4 IV. 04/15/16 00:00 05/15/16 00:00 Future Hold 04/15/16 04:01 2.5 MG Hydromorphone HCl (Dilaudid Inj) 0.5 mg Q2H PRN IV 04/14/16 21:30 04/28/16 21:29 Future Hold 04/15/16 08:58 0.5 MG Hydromorphone HCl (Dilaudid Inj) 0.25 mg Q2H PRN IV 04/14/16 21:30 04/16/16 07:47 0.25 MG Lorazepam (Ativan Inj) 0.5 mg Q6H PRN IV 04/15/16 03:00 05/15/16 02:59 Insulin Aspart (novoLOG ASPART) SLIDING SCALE If C... ACHS SC 04/15/16 11:00 05/15/16 10:59 04/15/16 11:44 1 UNITS Glucose (Glucose 40% Gel) 15-30 GRAMS 15 GRAMS... UD PRN PO 04/15/16 08:30 05/15/16 08:29 Glucose (Glucose Chew Tab) 4-8 Tablets 4 Tabl... UD PRN PO 04/15/16 08:30 05/15/16 08:29 Dextrose (Dextrose 50% 50ML Syringe) 25-50ML OF 50% DW IV FOR... UD PRN IV 04/15/16 08:30 05/15/16 08:29 Glucagon 1 mg 1 mg UD PRN SQ 04/15/16 08:30 05/15/16 08:29 Potassium Chloride/Sodium Chloride 1,000 ml @ 100 mls/hr Q10H IV 04/15/16 11:00 05/15/16 10:59 04/15/16 19:58 125 MLS/HR Pantoprazole Sodium/Syringe (Protonix Inj/ Syringe) 10 ml @ 5 mls/min DAILY@11 IV 04/15/16 11:00 05/15/16 10:59 04/15/16 11:24 5 MLS/MIN Miscellaneous Information (Consult Glycemic Management Pharmacy) 1 ea UD N/A 04/15/16 12:42 05/15/16 12:41 Thiamine HCl 100 mg 100 mg QAM IM 04/16/16 09:00 05/16/16 08:59 04/16/16 08:30 100 MG Acetaminophen (Ofirmev Iv) 100 ml @ 400 mls/hr Q8H PRN IV 04/15/16 16:45 05/15/16 16:44 04/15/16 17:49 400 MLS/HR Objective Vital Signs Date Time Temp Pulse Resp B/P Pulse Ox O2 Delivery O2 Flow Rate FiO2 04/16/16 07:40 36.5 62 18 130/81 97 Nasal Cannula 2.0 04/16/16 03:43 36.3 61 20 117/75 97 Nasal Cannula 2.0 04/15/16 23:45 36.7 71 18 129/78 95 Room Air 04/15/16 22:00 56 17 133/76 97 Nasal Cannula 2.0 04/15/16 20:00 Nasal Cannula 2.0 04/15/16 20:00 36.6 68 14 102/65 97 Nasal Cannula 2.0 04/15/16 18:59 61 21 96 Nasal Cannula 2.0 04/15/16 18:21 60 14 114/81 99 04/15/16 18:00 59 15 98 04/15/16 17:59 63 17 114/81 98 04/15/16 17:00 62 14 98 04/15/16 15:59 70 15 120/67 96 Nasal Cannula 2.0 04/15/16 15:30 96 Nasal Cannula 2.0 04/15/16 15:24 75 13 129/75 95 04/15/16 15:00 57 16 97 04/15/16 14:00 69 17 96 04/15/16 13:59 76 19 123/59 95 Nasal Cannula 2.0 04/15/16 13:00 70 15 96 04/15/16 11:59 78 27 118/66 91 04/15/16 11:41 36.5 75 21 101/60 92 Nasal Cannula 2.0 04/15/16 11:40 74 18 101/60 94 04/15/16 11:30 94 Nasal Cannula 2.0 04/15/16 11:00 71 28 94 04/15/16 09:59 73 14 101/60 94 Nasal Cannula 2.0 Physical Exam General Appearance: no apparent distress Respiratory/Chest: lungs clear, normal breath sounds, no respiratory distress, no accessory muscle use Cardiovascular: regular rate, rhythm, no edema, no murmur Abdomen: soft, + tenderness (mildly tender with ostomy in place) Neurologic/Psychiatric: alert, + depressed affect (depressed/flat affect) Laboratory Results Last 24 Hours Test 04/15/16 11:37 04/15/16 15:49 04/15/16 22:30 04/16/16 06:22 Bedside Glucose 183 mg/dl 104 mg/dl 101 mg/dl Sodium Level 140 mmol/L Potassium Level 3.5 mmol/L Chloride Level 105 mmol/L Carbon Dioxide Level 25 mmol/L Anion Gap 10.0 mmol/L Blood Urea Nitrogen 9 mg/dl Creatinine 0.59 mg/dl Est Creatinine Clear Calc Drug Dose 92.4 ml/min Estimated GFR () 111.5 Estimated GFR (Non- 96.2 BUN/Creatinine Ratio 15.6 Random Glucose 133 mg/dl Calcium Level 8.0 mg/dl Phosphorus Level 2.2 mg/dl Magnesium Level 2.5 mg/dl Test 04/16/16 06:23 White Blood Count 13.54 K/uL Red Blood Count 3.23 M/uL Hemoglobin 10.2 g/dL Hematocrit 30.0 % Mean Corpuscular Volume 92.9 fL Mean Corpuscular Hemoglobin 31.6 pg Mean Corpuscular Hemoglobin Concent 34.0 g/dl Platelet Count 366 K/uL Mean Platelet Volume 9.1 fL Neutrophils (%) (Auto) 81.9 % Lymphocytes (%) (Auto) 12.1 % Monocytes (%) (Auto) 5.2 % Eosinophils (%) (Auto) 0.2 % Basophils (%) (Auto) 0.1 % Neutrophils # (Auto) 11.09 K/uL Lymphocytes # (Auto) 1.64 K/uL Monocytes # (Auto) 0.70 K/uL Eosinophils # (Auto) 0.03 K/uL Basophils # (Auto) 0.01 K/uL RDW Standard Deviation 44.7 fL RDW Coefficient of Variation 13.1 % Immature Granulocyte % (Auto) 0.5 % Immature Granulocyte # (Auto) 0.07 K/uL Sodium Level 147 mmol/L Potassium Level 3.9 mmol/L Chloride Level 113 mmol/L Carbon Dioxide Level 26 mmol/L Anion Gap 8.0 mmol/L Blood Urea Nitrogen 12 mg/dl Creatinine 0.61 mg/dl Est Creatinine Clear Calc Drug Dose 89.4 ml/min Estimated GFR () 110.3 Estimated GFR (Non- 95.1 BUN/Creatinine Ratio 19.8 Random Glucose 115 mg/dl Estimated Average Glucose 126 mg/dl Hemoglobin A1c 6.0 % Calcium Level 8.0 mg/dl Magnesium Level 2.3 mg/dl Total Bilirubin 0.3 mg/dl Aspartate Amino Transf (AST/SGOT) 20 U/L Alanine Aminotransferase (ALT/SGPT) 40 U/L Alkaline Phosphatase 111 U/L Total Protein 5.7 gm/dl Albumin 2.3 gm/dl Globulin 3.4 gm/dl Albumin/Globulin Ratio 0.7 Assessment and Plan This is a 66 year old female with PMH of diverticulosis, HTN, GERD, HLD presents with an acute perforated diverticulitis Acute Perforated Diverticulitis 04/16 POD #2 now on clears as per general surgery continue IV antibiotics pain controlled ostomy draining appropriately 04/15 s/p sigmoid resection/colostomy continue IV antibiotics pain medications as needed - to note, she is on low dose due to delirium currently NPO IVFs sips of water as per surgery HTN currently, blood pressure is controlled hold antihypertensives while NPO status Depression Takes Zoloft at home seems like depression is not controlled at home Patient admits to depressive symptoms should have psych consultation once tolerating PO diet DVT ppx subq heparin DNR
[2016-04-16] MEDS: PANTOprazole INJ 40 MG in SYRINGE 0 ML IV SCH (11:06)
[2016-04-16] MEDS ORDERED: NURSING VERBAL MED ORDER ONE (12:00)
[2016-04-16 12:12] VITALS: BP 162/89; PULSE 83; TEMP 36.3; O2SAT 98
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
[2016-04-16 16:05] VITALS: BP 122/69; PULSE 77; TEMP 36.4; O2SAT 96
[2016-04-16] MEDS: PROMETHAZINE HCL INJ 25 MG in SODIUM CHLORIDE 0.9% 50ML 50 ML IV PRN ×2 (17:13→23:42)
[2016-04-16 19:29] VITALS: BP 132/82; PULSE 87; TEMP 36.5; O2SAT 90
[2016-04-16 23:49] VITALS: BP 112/72; PULSE 68; TEMP 36.7; O2SAT 92
[2016-04-17] VITALS (7 sets, daily range): BP systolic 134–158; BP diastolic 72–92; PULSE 54–81; TEMP 36.4–36.8; O2SAT 91–99
[2016-04-17] MEDS: PIPERACILL/TAZOBAC IV 4.5 GM in DEXTROSE 5% 100ML 100 ML IV SCH ×3 (04:04→19:56)
[2016-04-17] MEDS: NSS + 20MEQ KCL 1000ML 1,000 ML IV SCH ×3 (04:13→15:30)
[2016-04-17] MEDS ORDERED: ALBUT/IPRATROP 3MG/0.5MG NEB 3 ML VIAL INH PRN (05:15)
[2016-04-17 07:03] LABS: HEMATOCRIT 30.6 % (37-47); MEAN CELL VOLUME 93.6 fL (80-100); MEAN CORPUSCULAR HEMOGLOBIN 31.2 pg (25-34); MEAN CORPUSCULAR HGB CONC 33.3 g/dl (32-36); MEAN PLATELET VOLUME 8.7 fL (7.4-10.4); PLATELET COUNT 383 K/uL (130-400); RED BLOOD COUNT 3.27 M/uL (4.2-5.4); WHITE BLOOD COUNT 10.22 K/uL (4.8-10.8)
[2016-04-17 07:30] LABS: BUN/CREATININE RATIO 19.8 (10-20); CREATININE 0.53 mg/dl (0.60-1.20); POTASSIUM 3.8 mmol/L (3.5-5.1)
[2016-04-17] MEDS: METRONIDAZOLE / NSS 500 MG in PREMIXED NSS 100 ML IV SCH ×3 (08:37→23:50)
[2016-04-17] MEDS: THIAMINE HCL 100 MG/ML 2 ML VIAL IM SCH (08:37)
[2016-04-17] MEDS: ONDANSETRON INJ 2 MG/ML 2 ML VIAL IV PRN ×2 (08:39→15:41)
[2016-04-17] MEDS: HYDROmorphone INJ 0.5 MG/0.5 ML SYR IV PRN ×3 (08:39→15:58)
[2016-04-17] MEDS: HEPARIN SOD 5000 UNIT/0.5 ML CARP SQ SCH ×2 (09:00→20:54)
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
[2016-04-17] MEDS: PANTOprazole INJ 40 MG in SYRINGE 0 ML IV SCH (11:06)
--- NOTE | 2016-04-17 12:09 | Surgery Progress Note ---
Surgery Progress Note Date of Service Apr 17, 2016. Subjective Post OP Day: 3 Feels "miserable". Pain in abdomen near incision and ostomy. Has not had her liquids today but no nausea with clears yesterday. Tearful over the whole experience. Sitting in chair. Objective Vital Signs: Date Time Temp Pulse Resp B/P Pulse Ox O2 Delivery O2 Flow Rate FiO2 04/17/16 08:06 36.8 81 20 134/72 94 Nasal Cannula 2.0 04/17/16 05:19 71 18 95 Nasal Cannula 2.0 04/17/16 03:45 36.7 66 24 135/83 94 Nasal Cannula 2.0 04/16/16 23:49 36.7 68 18 112/72 92 Nasal Cannula 2.0 04/16/16 19:29 36.5 87 16 132/82 90 Nasal Cannula 2.0 Humidified Oxygen 04/16/16 16:05 36.4 77 22 122/69 96 Nasal Cannula 2.0 04/16/16 12:12 36.3 83 20 162/89 98 Nasal Cannula 2.0 General Appearance: WD/WN Head: normocephalic Respiratory/Chest: normal breath sounds, no respiratory distress, no accessory muscle use Cardiovascular: regular rate, rhythm Abdomen: soft, + abnormal bowel sounds (hypoactive), + distended, + pertinent finding (ostomy viable with liquid brown drainage in bag) Incision(s): clean, dry, intact Laboratory Results: Results Past 24 Hours Test 04/17/16 06:35 Range/Units White Blood Count 10.22 4.8-10.8 K/uL Red Blood Count 3.27 4.2-5.4 M/uL Hemoglobin 10.2 12.0-16.0 g/dL Hematocrit 30.6 37-47 % Mean Corpuscular Volume 93.6 80-100 fL Mean Corpuscular Hemoglobin 31.2 25-34 pg Mean Corpuscular Hemoglobin Concent 33.3 32-36 g/dl RDW Standard Deviation 45.3 36.4-46.3 fL RDW Coefficient of Variation 13.1 11.5-14.5 % Platelet Count 383 130-400 K/uL Mean Platelet Volume 8.7 7.4-10.4 fL Sodium Level 146 136-145 mmol/L Potassium Level 3.8 3.5-5.1 mmol/L Chloride Level 112 98-107 mmol/L Carbon Dioxide Level 27 21-32 mmol/L Anion Gap 7.0 3-11 mmol/L Blood Urea Nitrogen 10 7-18 mg/dl Creatinine 0.53 0.60-1.20 mg/dl Est Creatinine Clear Calc Drug Dose 102.9 ml/min Estimated GFR () 115.5 Estimated GFR (Non- 99.6 BUN/Creatinine Ratio 19.8 10-20 Random Glucose 110 70-99 mg/dl Calcium Level 8.0 8.5-10.1 mg/dl Magnesium Level 2.0 1.8-2.4 mg/dl Assessment & Plan s/p Tutu's procedure for perforated colon. Overall doing OK but having trouble sleeping at night. Will keep on clears today until ostomy starts functioning. Continue to increase activity. Will try ambien for sleep at night.
[2016-04-17] MEDS ORDERED: ZOLPIDEM TARTRATE 10 MG TAB PO PRN (12:15)
[2016-04-17] MEDS: ACETAMINOPHEN IV 100 ML IV PRN (15:41)
--- NOTE | 2016-04-17 19:11 | Progress Note ---
Internal Med Progress Note Date of Service: Apr 17, 2016. Provider Documentation: SUBJECTIVE: complains of nausea very anxious started on clears , very poor PO intake OBJECTIVE: Vital Signs-as noted below Exam: General-no apparent distress, very anxious Eyes-sclera non icteric ENT-dry oral mucosa Neck-no JVD Lungs-CTA Heart-regular S1/S2 Abdomen-soft, colostomy intact Extremities-no lower ext edema Neuro-no focal neurological deficit Lab data as noted below. ASSESSMENT & PLAN: This is a 66 year old female with PMH of diverticulosis, HTN, GERD, HLD presents with an acute perforated diverticulitis Acute Perforated Diverticulitis S/p Lewis's procedure /sigmoid resection/colostomy POD # 3 Surgery following continue IV antibiotics pain controlled ostomy draining appropriately HTN currently, blood pressure is controlled hold antihypertensives while NPO status Depression Psych consulted for on going depressive symptom appreciate input antidepressant adjusted per Psych DVT ppx subq heparin DNR DISPOSITION per surgery Vital Signs: Date Time Temp Pulse Resp B/P Pulse Ox O2 Delivery O2 Flow Rate FiO2 04/18/16 19:16 36.8 67 20 151/90 95 Nasal Cannula 2.0 04/18/16 15:05 36.9 61 17 131/78 90 Nasal Cannula 2.0 04/18/16 11:56 36.7 63 20 161/91 93 Room Air 04/18/16 07:02 36.7 65 20 159/81 92 Nasal Cannula 2.0 04/18/16 04:02 36.9 55 16 155/84 97 Nasal Cannula 2.0 04/17/16 23:40 36.8 54 18 152/90 99 Nasal Cannula 2.0 Lab Results: Results Past 24 Hours Test 04/18/16 06:45 Range/Units Sodium Level 141 136-145 mmol/L Potassium Level 4.0 3.5-5.1 mmol/L Chloride Level 107 98-107 mmol/L Carbon Dioxide Level 26 21-32 mmol/L Anion Gap 8.0 3-11 mmol/L Blood Urea Nitrogen 7 7-18 mg/dl Creatinine 0.42 0.60-1.20 mg/dl Est Creatinine Clear Calc Drug Dose 141.2 ml/min Estimated GFR () 124.7 Estimated GFR (Non- 107.6 BUN/Creatinine Ratio 16.7 10-20 Random Glucose 97 70-99 mg/dl Calcium Level 8.0 8.5-10.1 mg/dl
[2016-04-17] MEDS: MIRTAZAPINE TAB 15 MG TAB PO SCH (19:56)
[2016-04-18] VITALS (8 sets, daily range): BP systolic 131–161; BP diastolic 75–91; PULSE 55–68; TEMP 36.7–36.9; O2SAT 90–97
[2016-04-18] MEDS: PIPERACILL/TAZOBAC IV 4.5 GM in DEXTROSE 5% 100ML 100 ML IV SCH ×3 (04:00→20:46)
[2016-04-18] MEDS: HYDROmorphone INJ 0.5 MG/0.5 ML SYR IV PRN ×4 (04:09→23:40)
[2016-04-18] MEDS: ACETAMINOPHEN IV 100 ML IV PRN (06:30)
[2016-04-18] MEDS: METRONIDAZOLE / NSS 500 MG in PREMIXED NSS 100 ML IV SCH ×3 (07:27→23:40)
[2016-04-18] MEDS: ONDANSETRON INJ 2 MG/ML 2 ML VIAL IV PRN (07:27)
[2016-04-18] MEDS: THIAMINE HCL 100 MG TAB PO SCH (07:27)
[2016-04-18 07:28] LABS: BUN/CREATININE RATIO 16.7 (10-20); CREATININE 0.42 mg/dl (0.60-1.20)
[2016-04-18] MEDS: PROMETHAZINE HCL INJ 25 MG in SODIUM CHLORIDE 0.9% 50ML 50 ML IV PRN (07:31)
[2016-04-18] MEDS: SODIUM CHLORIDE 0.9% 1000ML 1,000 ML IV SCH ×2 (07:45→20:00)
[2016-04-18] MEDS ORDERED: SUMATRIPTAN SUCCINATE 6 MG/0.5 ML VIAL SQ ONE (08:30)
[2016-04-18] MEDS: HEPARIN SOD 5000 UNIT/0.5 ML CARP SQ SCH ×2 (09:14→20:47)
--- NOTE | 2016-04-18 09:56 | Surgery Progress Note ---
Surgery Progress Note Date of Service Apr 18, 2016. Subjective Migraine headache this morning. Usually takes excedrin migraine. No nausea with clear liquids. Pain is controlled. Objective Vital Signs: Date Time Temp Pulse Resp B/P Pulse Ox O2 Delivery O2 Flow Rate FiO2 04/18/16 07:02 36.7 65 20 159/81 92 Nasal Cannula 2.0 04/18/16 04:02 36.9 55 16 155/84 97 Nasal Cannula 2.0 04/17/16 23:40 36.8 54 18 152/90 99 Nasal Cannula 2.0 04/17/16 19:49 36.5 56 16 157/87 98 Nasal Cannula 2.0 04/17/16 15:51 36.7 71 20 153/92 91 Nasal Cannula 2.0 04/17/16 12:07 36.4 74 18 158/84 91 Room Air Physical Exam: TOI drainage (serosanguinous 150/35 cc) General Appearance: WD/WN, no apparent distress Head: normocephalic Respiratory/Chest: normal breath sounds, no respiratory distress Cardiovascular: regular rate, rhythm Abdomen: normal bowel sounds, soft, + distended, + tenderness (appropriate), + pertinent finding (ostomy functioning, less edema) Incision(s): clean, dry, intact Extremities: no pedal edema Laboratory Results: Results Past 24 Hours Test 04/18/16 06:45 Range/Units Sodium Level 141 136-145 mmol/L Potassium Level 4.0 3.5-5.1 mmol/L Chloride Level 107 98-107 mmol/L Carbon Dioxide Level 26 21-32 mmol/L Anion Gap 8.0 3-11 mmol/L Blood Urea Nitrogen 7 7-18 mg/dl Creatinine 0.42 0.60-1.20 mg/dl Est Creatinine Clear Calc Drug Dose 141.2 ml/min Estimated GFR () 124.7 Estimated GFR (Non- 107.6 BUN/Creatinine Ratio 16.7 10-20 Random Glucose 97 70-99 mg/dl Calcium Level 8.0 8.5-10.1 mg/dl Assessment & Plan s/p Tutu's procedure for perforated colon. Doing well. Ostomy starting to function. Will advance to full liquids. Try imitrex for migraine. Continue to increase activity.
[2016-04-18] MEDS: PANTOprazole INJ 40 MG in SYRINGE 0 ML IV SCH (10:13)
--- NOTE | 2016-04-18 19:56 | Progress Note ---
Internal Med Progress Note Date of Service: Apr 18, 2016. Provider Documentation: SUBJECTIVE: having persisted headache hx of Chronic migraine intranasal Imitrex ordered on clears having out put through colostomy OBJECTIVE: Vital Signs-as noted below Exam: General-no apparent distress, very anxious Eyes-sclera non icteric ENT-dry oral mucosa Neck-no JVD Lungs-CTA Heart-regular S1/S2 Abdomen-soft, colostomy intact Extremities-no lower ext edema Neuro-no focal neurological deficit Lab data as noted below. ASSESSMENT & PLAN: This is a 66 year old female with PMH of diverticulosis, HTN, GERD, HLD presents with an acute perforated diverticulitis Acute Perforated Diverticulitis S/p Lewis's procedure /sigmoid resection/colostomy POD # 4 Surgery following continue IV antibiotics pain controlled ostomy draining appropriately MIGRAINE HEADACHE chronic worsening of headache due to surgical stress /anxiety ordered for Imitrex HTN currently, blood pressure is controlled hold antihypertensives while NPO status Depression Psych consulted for on going depressive symptom appreciate input antidepressant adjusted per Psych DVT ppx subq heparin DNR DISPOSITION per surgery Vital Signs: Date Time Temp Pulse Resp B/P Pulse Ox O2 Delivery O2 Flow Rate FiO2 04/19/16 15:17 37.0 70 14 135/84 90 Room Air 04/19/16 15:15 Room Air 04/19/16 11:52 37.0 78 17 125/60 94 Room Air 04/19/16 09:17 95 Room Air 04/19/16 08:40 Room Air 04/19/16 08:00 37.0 69 19 132/75 95 Room Air 04/18/16 23:45 Nasal Cannula 2.0 04/18/16 23:35 36.8 67 16 146/75 94 Nasal Cannula 2.0 04/18/16 22:02 36.8 68 14 155/84 95 Nasal Cannula 2.0 Lab Results:
[2016-04-18] MEDS: MIRTAZAPINE TAB 15 MG TAB PO SCH (20:46)
[2016-04-19] MEDS: SUMATRIPTAN SUCCINATE 25 MG TAB PO PRN ×2 (00:43→16:33)
[2016-04-19] MEDS: ONDANSETRON INJ 2 MG/ML 2 ML VIAL IV PRN ×2 (00:45→10:56)
[2016-04-19] MEDS: HYDROmorphone INJ 0.5 MG/0.5 ML SYR IV PRN ×2 (01:51→10:14)
[2016-04-19] MEDS: LORAZEPAM INJ 0.5 MG in SYRINGE 0.75 ML IV PRN (01:51)
[2016-04-19] MEDS: SODIUM CHLORIDE 0.9% 1000ML 1,000 ML IV SCH ×2 (01:58→12:49)
[2016-04-19] MEDS: PROMETHAZINE HCL INJ 25 MG in SODIUM CHLORIDE 0.9% 50ML 50 ML IV PRN (02:08)
[2016-04-19] MEDS: PIPERACILL/TAZOBAC IV 4.5 GM in DEXTROSE 5% 100ML 100 ML IV SCH ×3 (03:59→19:51)
--- NOTE | 2016-04-19 06:26 | Surgery Progress Note ---
Surgery Progress Note Date of Service Apr 19, 2016. Subjective became very anxious according to nurse during pm- req pain med and antiemetics no acute chgs in vital signs Objective Vital Signs: Date Time Temp Pulse Resp B/P Pulse Ox O2 Delivery O2 Flow Rate FiO2 04/18/16 23:45 Nasal Cannula 2.0 04/18/16 23:35 36.8 67 16 146/75 94 Nasal Cannula 2.0 04/18/16 22:02 36.8 68 14 155/84 95 Nasal Cannula 2.0 04/18/16 20:00 36.8 68 14 95 2.0 04/18/16 19:16 36.8 67 20 151/90 95 Nasal Cannula 2.0 04/18/16 15:05 36.9 61 17 131/78 90 Nasal Cannula 2.0 04/18/16 11:56 36.7 63 20 161/91 93 Room Air 04/18/16 07:02 36.7 65 20 159/81 92 Nasal Cannula 2.0 General Appearance: no apparent distress Respiratory/Chest: no respiratory distress Cardiovascular: regular rate, rhythm Abdomen: non distended (stoma viable) Laboratory Results: Results Past 24 Hours Test 04/18/16 06:45 Range/Units Sodium Level 141 136-145 mmol/L Potassium Level 4.0 3.5-5.1 mmol/L Chloride Level 107 98-107 mmol/L Carbon Dioxide Level 26 21-32 mmol/L Anion Gap 8.0 3-11 mmol/L Blood Urea Nitrogen 7 7-18 mg/dl Creatinine 0.42 0.60-1.20 mg/dl Est Creatinine Clear Calc Drug Dose 141.2 ml/min Estimated GFR () 124.7 Estimated GFR (Non- 107.6 BUN/Creatinine Ratio 16.7 10-20 Random Glucose 97 70-99 mg/dl Calcium Level 8.0 8.5-10.1 mg/dl Assessment & Plan 04/19/16- POD #5 from abd washout, drainage of abscess, colectomy, end colostomy- po intake poor, need to work on mobility- cont atbx may need rehab. try senna syrup 04/16/16- try clear liquids, PT/OT- mobilize, cont IV atbx- suspect pt will need 4-5 addnl days in hospital, possibly extended care/ rehab. Cont IV fluid. Dr Odell covering over weekend 04/15/16-much more stable but req IV meds- will allow sips but no po meds yet- cont atbx, drain, ICU mgt for now. check labs 04/14/16- admit to ICU with perforated diverticulitis- NPO, IV fluids, atbx pain control, monitor progress closely monitor, may need IV beta rachelle discussed with daughter- Tricia Ibrahim [phone] 04/16/16- try clear liquids, PT/OT- mobilize, cont IV atbx- suspect pt will need 4-5 addnl days in hospital, possibly extended care/ rehab. Cont IV fluid. Dr Odell covering over weekend 04/15/16-much more stable but req IV meds- will allow sips but no po meds yet- cont atbx, drain, ICU mgt for now. check labs 04/14/16- admit to ICU with perforated diverticulitis- NPO, IV fluids, atbx pain control, monitor progress closely monitor, may need IV beta rachelle discussed with daughter- Tricia Ibrahim [phone]
[2016-04-19] MEDS: METOCLOPRAMIDE HCL INJ 5 MG/ML 2 ML VIAL IV SCH ×3 (07:11→17:28)
[2016-04-19 08:00] VITALS: BP 132/75; PULSE 69; TEMP 37; O2SAT 95
[2016-04-19] MEDS: METRONIDAZOLE / NSS 500 MG in PREMIXED NSS 100 ML IV SCH ×2 (08:12→15:13)
[2016-04-19] MEDS: SENNA 8.8 MG/5 ML UDP PO SCH ×3 (09:00→20:27)
[2016-04-19 09:17] VITALS: O2SAT 95
[2016-04-19] MEDS: HEPARIN SOD 5000 UNIT/0.5 ML CARP SQ SCH ×2 (09:46→20:27)
[2016-04-19] MEDS: PANTOprazole INJ 40 MG in SYRINGE 0 ML IV SCH (10:15)
[2016-04-19] MEDS: THIAMINE HCL 100 MG TAB PO SCH (10:22)
[2016-04-19] MEDS: ACETAMINOPHEN IV 100 ML IV PRN (10:56)
[2016-04-19] MEDS ORDERED: [UNRECOGNIZED DRUG - REMARK] PRN (11:00)
[2016-04-19] MEDS: FLUCONAZOLE 200MG / NSS IV SCH (11:39)
[2016-04-19 11:52] VITALS: BP 125/60; PULSE 78; TEMP 37; O2SAT 94
[2016-04-19 15:17] VITALS: BP 135/84; PULSE 70; TEMP 37; O2SAT 90
--- NOTE | 2016-04-19 16:53 | Psychiatric Progress Notes ---
Psychiatric Progress Note Date of Service Apr 19, 2016. Notes ID: Patient reviewed with liaison nurse. Initial consult 04/16 for recurrent depression, initially NPO, started Remeron CC: "I've been getting bad headaches" HPI: patient interacting with daughter, slow to return to chair from restroom, little interest in liquid diet, still poor PO. ROS: states headache last night with nausea, nurses describe as anxious and taking antiemetics MSE: alert, affect depressed, thoughts organized, no SI/HI/martinez. Imp: 66 yo female with history of depression treatment via primary care presents with worsening depression in setting of medical illness/surgery. Nortryptiline reportedly ineffective prior to hospitalization for sleep and has been held here as Zoloft was also discontinued due to NPO status Plan: monitor headache--can't exclude Zoloft discontinuation syndrome, likely more related to medical/poor PO, hopefully not side effect of Remeron as clearly sleeping better. agreeable to therapy referral to [facility]--liaison to assist, signed ROJELIO. .
[2016-04-19] MEDS: MIRTAZAPINE TAB 15 MG TAB PO SCH (20:26)
--- NOTE | 2016-04-19 21:39 | Progress Note ---
Internal Med Progress Note Date of Service: Apr 19, 2016. Provider Documentation: SUBJECTIVE: very depressed tearful - had migraine headache this AM repeat dose of Imitrex ordered at home pt takes Excedrin -which is avoided given recent bowel perforation and surgery no fever or chills on clears OBJECTIVE: Vital Signs-as noted below Exam: General-no apparent distress, very anxious Eyes-sclera non icteric ENT-dry oral mucosa Neck-no JVD Lungs-CTA Heart-regular S1/S2 Abdomen-soft, colostomy intact , bowel sound active Extremities-no lower ext edema Neuro-no focal neurological deficit Lab data as noted below. ASSESSMENT & PLAN: This is a 66 year old female with PMH of diverticulosis, HTN, GERD, HLD presents with an acute perforated diverticulitis Acute Perforated Diverticulitis S/p Lewis's procedure /sigmoid resection/colostomy POD # 5 Surgery following continue IV antibiotics pain controlled ostomy draining appropriately MIGRAINE HEADACHE chronic worsening of headache due to surgical stress /anxiety does not follow with Neurology takes Excedrin as need at home -should be avoided ( combination of acetaminophen /aspirin /caffeine ) ordered for Imitrex PRN RENEE UTI : started on Diflucan D/c Ballesteros as soon as possible -defer to Surgery Depression Psych consulted for on going depressive symptom appreciate input antidepressant adjusted per Psych DVT ppx subq heparin DNR DISPOSITION per surgery Vital Signs: Date Time Temp Pulse Resp B/P Pulse Ox O2 Delivery O2 Flow Rate FiO2 04/19/16 15:17 37.0 70 14 135/84 90 Room Air 04/19/16 15:15 Room Air 04/19/16 11:52 37.0 78 17 125/60 94 Room Air 04/19/16 09:17 95 Room Air 04/19/16 08:40 Room Air 04/19/16 08:00 37.0 69 19 132/75 95 Room Air 04/18/16 23:45 Nasal Cannula 2.0 04/18/16 23:35 36.8 67 16 146/75 94 Nasal Cannula 2.0 04/18/16 22:02 36.8 68 14 155/84 95 Nasal Cannula 2.0
[2016-04-19 23:17] VITALS: BP 155/89; PULSE 71; TEMP 37; O2SAT 93
[2016-04-20] MEDS: METRONIDAZOLE / NSS 500 MG in PREMIXED NSS 100 ML IV SCH ×3 (00:08→15:42)
[2016-04-20] MEDS: METOCLOPRAMIDE HCL INJ 5 MG/ML 2 ML VIAL IV SCH ×4 (00:08→17:43)
[2016-04-20] MEDS: PIPERACILL/TAZOBAC IV 4.5 GM in DEXTROSE 5% 100ML 100 ML IV SCH ×3 (04:05→20:17)
--- NOTE | 2016-04-20 06:12 | Surgery Progress Note ---
Surgery Progress Note Date of Service Apr 20, 2016. Subjective awake , alert, afeb poor mobility, stoma functioning, tolerating some po, ceron still in place Objective Vital Signs: Date Time Temp Pulse Resp B/P Pulse Ox O2 Delivery O2 Flow Rate FiO2 04/20/16 00:00 Room Air 04/19/16 23:17 37.0 71 16 155/89 93 Room Air 04/19/16 15:17 37.0 70 14 135/84 90 Room Air 04/19/16 15:15 Room Air 04/19/16 11:52 37.0 78 17 125/60 94 Room Air 04/19/16 09:17 95 Room Air 04/19/16 08:40 Room Air 04/19/16 08:00 37.0 69 19 132/75 95 Room Air Physical Exam: TOI drainage (serous) General Appearance: no apparent distress Respiratory/Chest: no respiratory distress Abdomen: non distended, soft Incision(s): intact Laboratory Results: Results Past 24 Hours Test 04/20/16 04:44 Range/Units Assessment & Plan 04/20/16- overall stable from standpoint of abd- try to adv to full liquids. marcio in urine- d/c ceron, cont to try to have pt walk. cont atbx 2-3 weeks- po as outpt. 04/19/16- POD #5 from abd washout, drainage of abscess, colectomy, end colostomy- po intake poor, need to work on mobility- cont atbx may need rehab. try senna syrup 04/16/16- try clear liquids, PT/OT- mobilize, cont IV atbx- suspect pt will need 4-5 addnl days in hospital, possibly extended care/ rehab. Cont IV fluid. Dr Odell covering over weekend 04/15/16-much more stable but req IV meds- will allow sips but no po meds yet- cont atbx, drain, ICU mgt for now. check labs 04/14/16- admit to ICU with perforated diverticulitis- NPO, IV fluids, atbx pain control, monitor progress closely monitor, may need IV beta rachelle discussed with daughter- Tricia Ibrahim [phone] 04/19/16- POD #5 from abd washout, drainage of abscess, colectomy, end colostomy- po intake poor, need to work on mobility- cont atbx may need rehab. try senna syrup 04/16/16- try clear liquids, PT/OT- mobilize, cont IV atbx- suspect pt will need 4-5 addnl days in hospital, possibly extended care/ rehab. Cont IV fluid. Dr Odell covering over weekend 04/15/16-much more stable but req IV meds- will allow sips but no po meds yet- cont atbx, drain, ICU mgt for now. check labs 04/14/16- admit to ICU with perforated diverticulitis- NPO, IV fluids, atbx pain control, monitor progress closely monitor, may need IV beta rachelle discussed with daughter- Tricia Ibrahim [phone]
[2016-04-20 07:22] VITALS: BP 153/79; PULSE 69; TEMP 37; O2SAT 90
[2016-04-20] MEDS: THIAMINE HCL 100 MG TAB PO SCH (07:57)
[2016-04-20] MEDS: HEPARIN SOD 5000 UNIT/0.5 ML CARP SQ SCH ×2 (08:02→20:45)
[2016-04-20] MEDS: SUMATRIPTAN SUCCINATE 25 MG TAB PO PRN (08:11)
[2016-04-20] MEDS ORDERED: NURSING VERBAL MED ORDER ONE (08:15)
[2016-04-20] MEDS ORDERED: SENNA 8.6 MG TAB PO SCH (09:00)
[2016-04-20 09:55] LABS: HEMATOCRIT 36.6 % (37-47); MEAN CELL VOLUME 94.3 fL (80-100); MEAN CORPUSCULAR HEMOGLOBIN 31.7 pg (25-34); MEAN CORPUSCULAR HGB CONC 33.6 g/dl (32-36); MEAN PLATELET VOLUME 8.8 fL (7.4-10.4); PLATELET COUNT 453 K/uL (130-400); RED BLOOD COUNT 3.88 M/uL (4.2-5.4); WHITE BLOOD COUNT 11.46 K/uL (4.8-10.8)
[2016-04-20 10:25] LABS: CREATININE 0.48 mg/dl (0.60-1.20)
[2016-04-20 12:21] VITALS: BP 151/83; PULSE 75; TEMP 37.1; O2SAT 89
[2016-04-20] MEDS: PANTOprazole INJ 40 MG in SYRINGE 0 ML IV SCH (13:02)
[2016-04-20] MEDS: FLUCONAZOLE 200MG / NSS IV SCH (13:03)
[2016-04-20] MEDS: HYDROmorphone INJ 0.5 MG/0.5 ML SYR IV PRN ×2 (13:22→15:48)
[2016-04-20 15:30] VITALS: O2SAT 94
[2016-04-20 15:35] VITALS: BP 147/88; PULSE 69; TEMP 36.9; O2SAT 86
[2016-04-20 15:42] VITALS: O2SAT 94
--- NOTE | 2016-04-20 17:01 | Progress Note ---
Internal Med Progress Note Date of Service: Apr 20, 2016. Provider Documentation: SUBJECTIVE: Patient is seen and examined at bedside. States headache has resolved. Denies any chest pain,SOB, abd pain. Tolerating diet. OBJECTIVE: Vital Signs-as noted below Physical Exam: General Appearance:Moderately built and nourished, +anxious Head: normocephalic, Atraumatic Eyes: normal inspection, EOMI, PERRLA Neck: supple, Trachea midline Respiratory/Chest: Normal breath sounds, CTA Cardiovascular: S1, S2, No murmur Abdomen/GI:Soft, Non tender, Bowel sounds present, +colostomy Extremities/Musculoskelatal:normal inspection, no edema Neurologic/Psych:AAOX3, grossly no focal neurological deficits Skin: normal color, warm Lab data as noted below. ASSESSMENT & PLAN: This is a 66 year old female with PMH of diverticulosis, HTN, GERD, HLD presents with an acute perforated diverticulitis Acute Perforated Diverticulitis S/p Lewis's procedure /sigmoid resection/colostomy POD # 6 Surgery on board continue IV antibiotics pain control ostomy draining appropriately Advance diet as per surgery MIGRAINE HEADACHE chronic worsening of headache due to surgical stress /anxiety Does not follow with Neurology Takes Excedrin as need at home -should be avoided ( combination of acetaminophen /aspirin /caffeine ) Continue Imitrex PRN RENEE UTI : Continue Diflucan Ballesteros catheter discontinued Continue bladder scan protocol Depression Psych consulted for on going depressive symptom appreciate input antidepressant adjusted per Psych DVT ppx Heparin SQ Code Status: DNR DISPOSITION per surgery Vital Signs: Date Time Temp Pulse Resp B/P Pulse Ox O2 Delivery O2 Flow Rate FiO2 04/20/16 15:42 94 Nasal Cannula 2.0 04/20/16 15:35 36.9 69 14 147/88 86 Room Air 04/20/16 15:30 94 Nasal Cannula 2.0 04/20/16 12:21 37.1 75 20 151/83 89 Room Air 04/20/16 08:38 Room Air 04/20/16 07:50 Room Air 04/20/16 07:22 37.0 69 16 153/79 90 Room Air 04/20/16 00:00 Room Air 04/19/16 23:17 37.0 71 16 155/89 93 Room Air Lab Results: Results Past 24 Hours Test 04/20/16 09:39 Range/Units White Blood Count 11.46 4.8-10.8 K/uL Red Blood Count 3.88 4.2-5.4 M/uL Hemoglobin 12.3 12.0-16.0 g/dL Hematocrit 36.6 37-47 % Mean Corpuscular Volume 94.3 80-100 fL Mean Corpuscular Hemoglobin 31.7 25-34 pg Mean Corpuscular Hemoglobin Concent 33.6 32-36 g/dl RDW Standard Deviation 45.4 36.4-46.3 fL RDW Coefficient of Variation 13.3 11.5-14.5 % Platelet Count 453 130-400 K/uL Mean Platelet Volume 8.8 7.4-10.4 fL Creatinine 0.48 0.60-1.20 mg/dl Est Creatinine Clear Calc Drug Dose 123.5 ml/min Estimated GFR () 119.3 Estimated GFR (Non- 102.9
[2016-04-20] MEDS: LORAZEPAM INJ 0.5 MG in SYRINGE 0.75 ML IV PRN (19:07)
[2016-04-20] MEDS: SENNA 8.6 MG TAB PO SCH (20:42)
[2016-04-20] MEDS: MIRTAZAPINE TAB 15 MG TAB PO SCH (20:42)
[2016-04-20 23:08] VITALS: BP 156/84; PULSE 70; TEMP 36.9; O2SAT 91
[2016-04-21] MEDS: METOCLOPRAMIDE HCL INJ 5 MG/ML 2 ML VIAL IV SCH ×5 (00:43→23:37)
[2016-04-21] MEDS: METRONIDAZOLE / NSS 500 MG in PREMIXED NSS 100 ML IV SCH ×4 (00:43→23:28)
[2016-04-21] MEDS: SUMATRIPTAN SUCCINATE 25 MG TAB PO PRN (00:44)
[2016-04-21] MEDS: PIPERACILL/TAZOBAC IV 4.5 GM in DEXTROSE 5% 100ML 100 ML IV SCH ×3 (03:35→20:16)
[2016-04-21 06:21] LABS: CREATININE 0.52 mg/dl (0.60-1.20)
[2016-04-21] MEDS ORDERED: OXYCODONE HCL IR 5 MG TAB (IMMEDIATE RELEASE) PO PRN (06:30)
[2016-04-21 07:44] VITALS: BP 134/71; PULSE 79; O2SAT 91
--- NOTE | 2016-04-21 08:31 | Surgery Progress Note ---
Surgery Progress Note Date of Service Apr 21, 2016. Subjective Post OP Day: 7 + complaints (pain, fatigue), + diet (full liquids), No nausea Objective Vital Signs: Date Time Temp Pulse Resp B/P Pulse Ox O2 Delivery O2 Flow Rate FiO2 04/21/16 07:44 79 16 134/71 91 Nasal Cannula 2.0 04/21/16 00:40 Room Air 04/20/16 23:08 36.9 70 16 156/84 91 Room Air 04/20/16 15:42 94 Nasal Cannula 2.0 04/20/16 15:35 36.9 69 14 147/88 86 Room Air 04/20/16 15:30 94 Nasal Cannula 2.0 04/20/16 12:21 37.1 75 20 151/83 89 Room Air 04/20/16 08:38 Room Air Physical Exam: TOI drainage (minimal) Abdomen: non distended, soft Incision(s): clean, dry, no erythema, findings (stoma pink) Laboratory Results: Results Past 24 Hours Test 04/20/16 09:39 04/21/16 05:04 Range/Units White Blood Count 11.46 4.8-10.8 K/uL Red Blood Count 3.88 4.2-5.4 M/uL Hemoglobin 12.3 12.0-16.0 g/dL Hematocrit 36.6 37-47 % Mean Corpuscular Volume 94.3 80-100 fL Mean Corpuscular Hemoglobin 31.7 25-34 pg Mean Corpuscular Hemoglobin Concent 33.6 32-36 g/dl RDW Standard Deviation 45.4 36.4-46.3 fL RDW Coefficient of Variation 13.3 11.5-14.5 % Platelet Count 453 130-400 K/uL Mean Platelet Volume 8.8 7.4-10.4 fL Creatinine 0.48 0.52 0.60-1.20 mg/dl Est Creatinine Clear Calc Drug Dose 123.5 114.0 ml/min Estimated GFR () 119.3 116.2 Estimated GFR (Non- 102.9 100.3 Assessment & Plan s/p Tutu's gumaro drain removed from incision, continue packing cont to increase activity, po intake cont IV abx d/c planning--HSNV?
[2016-04-21] MEDS: SENNA 8.6 MG TAB PO SCH ×2 (08:36→20:15)
[2016-04-21] MEDS: THIAMINE HCL 100 MG TAB PO SCH (08:36)
[2016-04-21] MEDS: OXYCODONE HCL IR 5 MG TAB (IMMEDIATE RELEASE) PO PRN ×2 (08:43→20:14)
[2016-04-21] MEDS: HEPARIN SOD 5000 UNIT/0.5 ML CARP SQ SCH ×2 (08:50→20:16)
[2016-04-21] MEDS: PANTOprazole INJ 40 MG in SYRINGE 0 ML IV SCH (11:51)
[2016-04-21] MEDS: FLUCONAZOLE 200MG / NSS IV SCH (11:51)
[2016-04-21] MEDS: ONDANSETRON INJ 2 MG/ML 2 ML VIAL IV PRN (13:32)
--- NOTE | 2016-04-21 16:12 | Progress Note ---
Internal Med Progress Note Date of Service: Apr 21, 2016. Provider Documentation: SUBJECTIVE: Patient is seen and examined at bedside. States having headache and tired currently. Denies any chest pain,SOB, abd pain. Tolerating diet. OBJECTIVE: Vital Signs-as noted below Physical Exam: General Appearance:Moderately built and nourished, +anxious Head: normocephalic, Atraumatic Eyes: normal inspection, EOMI, PERRLA Neck: supple, Trachea midline Respiratory/Chest: Normal breath sounds, CTA Cardiovascular: S1, S2, No murmur Abdomen/GI:Soft, Non tender, Bowel sounds present, +colostomy Extremities/Musculoskelatal:normal inspection, no edema Neurologic/Psych:AAOX3, grossly no focal neurological deficits Skin: normal color, warm Lab data as noted below. ASSESSMENT & PLAN: This is a 66 year old female with PMH of diverticulosis, HTN, GERD, HLD presents with an acute perforated diverticulitis Acute Perforated Diverticulitis S/p Lewis's procedure /sigmoid resection/colostomy POD # 7 Surgery on board continue IV antibiotics pain control ostomy draining appropriately Advance diet as per surgery Drain removed from incision continue packing per surgery Blood culture:No growth MIGRAINE HEADACHE chronic worsening of headache due to surgical stress /anxiety Does not follow with Neurology Takes Excedrin as need at home -should be avoided ( combination of acetaminophen /aspirin /caffeine ) Continue Imitrex PRN 25mg daily, can repeat dose after 2 hours if non improvement RENEE UTI : Continue Diflucan Ballesteros catheter discontinued Continue bladder scan protocol Depression Psych consulted for on going depressive symptom appreciate input antidepressant adjusted per Psych DVT ppx Heparin SQ Code Status: DNR DISPOSITION per surgery Vital Signs: Date Time Temp Pulse Resp B/P Pulse Ox O2 Delivery O2 Flow Rate FiO2 04/21/16 07:44 79 16 134/71 91 Nasal Cannula 2.0 04/21/16 07:35 Room Air 04/21/16 00:40 Room Air 04/20/16 23:08 36.9 70 16 156/84 91 Room Air Lab Results: Results Past 24 Hours Test 04/21/16 05:04 Range/Units Creatinine 0.52 0.60-1.20 mg/dl Est Creatinine Clear Calc Drug Dose 114.0 ml/min Estimated GFR () 116.2 Estimated GFR (Non- 100.3
[2016-04-21 16:25] VITALS: BP 132/76; PULSE 73; TEMP 36.8; O2SAT 87
[2016-04-21 16:30] VITALS: O2SAT 93
[2016-04-21] MEDS ORDERED: NURSING VERBAL MED ORDER ONE (16:30)
[2016-04-21] MEDS ORDERED: SUMATRIPTAN SUCCINATE 25 MG TAB PO PRN (16:45)
[2016-04-21] MEDS: MIRTAZAPINE TAB 15 MG TAB PO SCH (20:15)
[2016-04-21 23:12] VITALS: BP 128/79; PULSE 76; TEMP 36.7; O2SAT 92
[2016-04-22] MEDS: PIPERACILL/TAZOBAC IV 4.5 GM in DEXTROSE 5% 100ML 100 ML IV SCH ×3 (04:21→19:34)
[2016-04-22] MEDS: METOCLOPRAMIDE HCL INJ 5 MG/ML 2 ML VIAL IV SCH ×4 (05:26→23:50)
--- NOTE | 2016-04-22 06:48 | Surgery Progress Note ---
Surgery Progress Note Date of Service Apr 22, 2016. Subjective more alert, responsive- asked for more food Objective Vital Signs: Date Time Temp Pulse Resp B/P Pulse Ox O2 Delivery O2 Flow Rate FiO2 04/21/16 23:45 Nasal Cannula 2.0 04/21/16 23:12 36.7 76 16 128/79 92 Nasal Cannula 2.0 04/21/16 16:30 93 Nasal Cannula 2.0 04/21/16 16:25 36.8 73 16 132/76 87 Room Air 04/21/16 15:45 Nasal Cannula 2.0 04/21/16 07:44 79 16 134/71 91 Nasal Cannula 2.0 04/21/16 07:35 Room Air General Appearance: no apparent distress Respiratory/Chest: no respiratory distress Abdomen: soft Laboratory Results: Results Past 24 Hours Test 04/22/16 05:54 Range/Units Assessment & Plan 04/22/16-adv diet to low fiber, d/c TOI drain- cont PT/OT- may be ready for d/c to extended care 1-2 days on po pain meds and atbx also will need some wound care 04/20/16- overall stable from standpoint of abd- try to adv to full liquids. marcio in urine- d/c ceron, cont to try to have pt walk. cont atbx 2-3 weeks- po as outpt. 04/19/16- POD #5 from abd washout, drainage of abscess, colectomy, end colostomy- po intake poor, need to work on mobility- cont atbx may need rehab. try senna syrup 04/16/16- try clear liquids, PT/OT- mobilize, cont IV atbx- suspect pt will need 4-5 addnl days in hospital, possibly extended care/ rehab. Cont IV fluid. Dr Odell covering over weekend 04/15/16-much more stable but req IV meds- will allow sips but no po meds yet- cont atbx, drain, ICU mgt for now. check labs 04/14/16- admit to ICU with perforated diverticulitis- NPO, IV fluids, atbx pain control, monitor progress closely monitor, may need IV beta rachelle discussed with daughter- Tricia Ibrahim [phone] 04/20/16- overall stable from standpoint of abd- try to adv to full liquids. marcio in urine- d/c ceron, cont to try to have pt walk. cont atbx 2-3 weeks- po as outpt. 04/19/16- POD #5 from abd washout, drainage of abscess, colectomy, end colostomy- po intake poor, need to work on mobility- cont atbx may need rehab. try senna syrup 04/16/16- try clear liquids, PT/OT- mobilize, cont IV atbx- suspect pt will need 4-5 addnl days in hospital, possibly extended care/ rehab. Cont IV fluid. Dr Odell covering over weekend 04/15/16-much more stable but req IV meds- will allow sips but no po meds yet- cont atbx, drain, ICU mgt for now. check labs 04/14/16- admit to ICU with perforated diverticulitis- NPO, IV fluids, atbx pain control, monitor progress closely monitor, may need IV beta rachelle discussed with daughter- Tricia Ibrahim [phone]
[2016-04-22 06:49] VITALS: BP 128/77; PULSE 72; TEMP 36.7; O2SAT 90
[2016-04-22 06:55] LABS: CREATININE 0.58 mg/dl (0.60-1.20)
[2016-04-22 07:38] VITALS: O2SAT 85
[2016-04-22 07:40] VITALS: O2SAT 93
[2016-04-22] MEDS: METRONIDAZOLE / NSS 500 MG in PREMIXED NSS 100 ML IV SCH ×3 (07:44→23:50)
[2016-04-22] MEDS: HEPARIN SOD 5000 UNIT/0.5 ML CARP SQ SCH ×2 (07:50→22:07)
[2016-04-22] MEDS: SENNA 8.6 MG TAB PO SCH ×2 (07:52→22:05)
[2016-04-22] MEDS: THIAMINE HCL 100 MG TAB PO SCH (07:52)
[2016-04-22] MEDS: OXYCODONE HCL IR 5 MG TAB (IMMEDIATE RELEASE) PO PRN ×2 (09:21→18:24)
[2016-04-22] MEDS: PANTOprazole INJ 40 MG in SYRINGE 0 ML IV SCH (10:33)
[2016-04-22] MEDS: FLUCONAZOLE 200MG / NSS IV SCH (10:34)
[2016-04-22 11:56] VITALS: BP 138/81; PULSE 84; TEMP 37.1; O2SAT 97
[2016-04-22 15:05] VITALS: BP 105/71; PULSE 81; TEMP 36.8; O2SAT 94
[2016-04-22] MEDS: MIRTAZAPINE TAB 15 MG TAB PO SCH (22:05)
[2016-04-22 23:07] VITALS: BP 103/67; PULSE 87; TEMP 37; O2SAT 94
[2016-04-23] MEDS: PIPERACILL/TAZOBAC IV 4.5 GM in DEXTROSE 5% 100ML 100 ML IV SCH ×2 (04:03→11:36)
[2016-04-23 05:49] LABS: HEMATOCRIT 31.4 % (37-47); MEAN CELL VOLUME 95.7 fL (80-100); MEAN CORPUSCULAR HEMOGLOBIN 31.1 pg (25-34); MEAN CORPUSCULAR HGB CONC 32.5 g/dl (32-36); MEAN PLATELET VOLUME 8.8 fL (7.4-10.4); PLATELET COUNT 402 K/uL (130-400); RED BLOOD COUNT 3.28 M/uL (4.2-5.4); WHITE BLOOD COUNT 11.34 K/uL (4.8-10.8)
[2016-04-23] MEDS: METOCLOPRAMIDE HCL INJ 5 MG/ML 2 ML VIAL IV SCH ×2 (06:13→11:36)
[2016-04-23 07:07] VITALS: BP 144/83; PULSE 83; TEMP 36.8; O2SAT 98
[2016-04-23] MEDS: METRONIDAZOLE / NSS 500 MG in PREMIXED NSS 100 ML IV SCH (07:22)
--- NOTE | 2016-04-23 08:07 | Surgery Progress Note ---
Surgery Progress Note Date of Service Apr 23, 2016. Subjective improved, on IV atbx- mobility improved Objective Vital Signs: Date Time Temp Pulse Resp B/P Pulse Ox O2 Delivery O2 Flow Rate FiO2 04/23/16 07:07 36.8 83 16 144/83 98 Nasal Cannula 2.0 04/22/16 23:45 Nasal Cannula 2.0 04/22/16 23:07 37.0 87 16 103/67 94 Nasal Cannula 2.0 04/22/16 16:07 Room Air 04/22/16 15:05 36.8 81 16 105/71 94 Nasal Cannula 2.0 04/22/16 11:56 37.1 84 16 138/81 97 Nasal Cannula 2.0 General Appearance: no apparent distress Respiratory/Chest: no respiratory distress Abdomen: soft Incision(s): intact Laboratory Results: Results Past 24 Hours Test 04/23/16 05:16 Range/Units White Blood Count 11.34 4.8-10.8 K/uL Red Blood Count 3.28 4.2-5.4 M/uL Hemoglobin 10.2 12.0-16.0 g/dL Hematocrit 31.4 37-47 % Mean Corpuscular Volume 95.7 80-100 fL Mean Corpuscular Hemoglobin 31.1 25-34 pg Mean Corpuscular Hemoglobin Concent 32.5 32-36 g/dl RDW Standard Deviation 49.3 36.4-46.3 fL RDW Coefficient of Variation 14.3 11.5-14.5 % Platelet Count 402 130-400 K/uL Mean Platelet Volume 8.8 7.4-10.4 fL Assessment & Plan 04/23/16- d/c flagyl, cont Zosyn for now , po Augmentin when d/c- pt ready for d/c to rehab from surg standpoint- unsure if can or wants to go without daughter here- pt said she is away 04/22/16-adv diet to low fiber, d/c TOI drain- cont PT/OT- may be ready for d/c to extended care 1-2 days on po pain meds and atbx also will need some wound care 04/20/16- overall stable from standpoint of abd- try to adv to full liquids. marcio in urine- d/c jie, cont to try to have pt walk. cont atbx 2-3 weeks- po as outpt. 04/19/16- POD #5 from abd washout, drainage of abscess, colectomy, end colostomy- po intake poor, need to work on mobility- cont atbx may need rehab. try senna syrup 04/16/16- try clear liquids, PT/OT- mobilize, cont IV atbx- suspect pt will need 4-5 addnl days in hospital, possibly extended care/ rehab. Cont IV fluid. Dr Odell covering over weekend 04/15/16-much more stable but req IV meds- will allow sips but no po meds yet- cont atbx, drain, ICU mgt for now. check labs 04/14/16- admit to ICU with perforated diverticulitis- NPO, IV fluids, atbx pain control, monitor progress closely monitor, may need IV beta rachelle discussed with daughter- Tricia Ibrahim [phone] 04/22/16-adv diet to low fiber, d/c TOI drain- cont PT/OT- may be ready for d/c to extended care 1-2 days on po pain meds and atbx also will need some wound care 04/20/16- overall stable from standpoint of abd- try to adv to full liquids. marcio in urine- d/c ceron, cont to try to have pt walk. cont atbx 2-3 weeks- po as outpt. 04/19/16- POD #5 from abd washout, drainage of abscess, colectomy, end colostomy- po intake poor, need to work on mobility- cont atbx may need rehab. try senna syrup 04/16/16- try clear liquids, PT/OT- mobilize, cont IV atbx- suspect pt will need 4-5 addnl days in hospital, possibly extended care/ rehab. Cont IV fluid. Dr Odell covering over weekend 04/15/16-much more stable but req IV meds- will allow sips but no po meds yet- cont atbx, drain, ICU mgt for now. check labs 04/14/16- admit to ICU with perforated diverticulitis- NPO, IV fluids, atbx pain control, monitor progress closely monitor, may need IV beta rachelle discussed with daughter- Tricia Ibrahim [phone]
[2016-04-23] MEDS: THIAMINE HCL 100 MG TAB PO SCH (08:59)
[2016-04-23] MEDS: HEPARIN SOD 5000 UNIT/0.5 ML CARP SQ SCH (09:01)
[2016-04-23] MEDS: SENNA 8.6 MG TAB PO SCH (09:29)
--- NOTE | 2016-04-23 10:08 | Psychiatric Progress Notes ---
Psychiatric Progress Note Date of Service Apr 23, 2016. Notes ID: Patient reviewed with liaison nurse. Initial consult 04/16 for recurrent depression, initially NPO, started Remeron CC: "I don't have all of that money" HPI: improved PO but "upset" before meals impacts intake, heard she has to pay for transport as daughter away for the weekend. ROS: denies COTTO for 2 days, sleep improved. MSE: alert, affect less depressed but still anxious, thoughts organized, no SI/ HI/martinez. Imp: 66 yo female with history of depression treatment via primary care presents with worsening depression in setting of medical illness/surgery. Nortryptiline reportedly ineffective prior to hospitalization for sleep and has been held here as Zoloft was also discontinued due to NPO status Plan: increase Remeron. Has therapy f/u referral to [facility] per liaison.
[2016-04-23] MEDS: FLUCONAZOLE 200MG / NSS IV SCH (11:36)
[2016-04-23] MEDS: PANTOprazole INJ 40 MG in SYRINGE 0 ML IV SCH (11:36)
[2016-04-23] MEDS: OXYCODONE HCL IR 5 MG TAB (IMMEDIATE RELEASE) PO PRN (12:37)
[2016-04-23] MEDS ORDERED: AMOX875T PO (15:16)
[2016-04-23] MEDS ORDERED: OXYC-57 PO (15:16)
[2016-04-23] MEDS ORDERED: FLUC100T4 PO (15:19)
--- NOTE | 2016-04-23 15:24 | Discharge Instructions ---
Discharge Instructions Admission Reason for Admission: Diverticulitis Discharge Discharge Diagnosis / Problem: perforated diverticulitis Discharge Goals Goal(s): Increase independence Activity Recommendations Activity Level: Up Ad [place] Therapies: Physical Therapy, Occupational Therapy Lifting Limitations: no more than 10 pounds Shower/Bathe: no limitations (may shower, no bathing) . Additional Information Patient informed of condition: Yes Advance Directives: No DNR: Yes Level of Care: Skilled Communicable Disease: No Prognosis: Stable Instructions / Follow-Up Instructions / Follow-Up Dr. Clark's office in 1 week, [phone], will remove pan at that time Current Hospital Diet Patient's current hospital diet: Low Fiber Diet Discharge Diet Recommended Diet: Low Fiber Diet Procedures Procedures Performed: Exploratory Laparotomy, Sigmoidcolectomy, and colostomy abd washout and drainage abscess Pending Studies Studies pending at discharge: no Physician Orders On Transfer Dressing Changes: change daily until dry Laboratory Results Hemoglobin A1c Test 04/16/16 06:23 Range/Units Estimated Average Glucose 126 mg/dl Hemoglobin A1c 6.0 H 4.5-5.6 % Medical Emergencies . Who to Call and When: Medical Emergencies: If at any time you feel your situation is an emergency, please call 911 immediately. . Non-Emergent Contact Non-Emergency issues call your: Surgeon Call Non-Emergent contact if: you have a fever, your pain is not controlled, wound has increased drainage, wound has increased redness . . "Provider Documentation" section prepared by David Chavira. Core Measure Problem Core Measures: None
[2016-04-23 15:45] VITALS: BP 144/83; PULSE 83; TEMP 36.8; O2SAT 98
[2016-04-23] MEDS ORDERED: RMR15 PO (15:49)
--- NOTE | 2016-04-23 17:08 | DISCHARGE SUMMARY ---
PRIMARY DISCHARGE DIAGNOSES: 1. Perforated diverticulitis with peritonitis and sepsis. 2. Alivia urinary tract infection. 3. Depression. 4. Headaches. SECONDARY DISCHARGE DIAGNOSES: 1. Hypertension. 2. Gastroesophageal reflux disease. 3. Dyslipidemia. PROCEDURE PERFORMED: Exploratory laparotomy with abdominal washout, drainage of abscess, sigmoid colectomy and end colostomy. CONSULT[facility]: [facility] for postoperative ICU care. 2. [facility] hospitalist to assist in medical management. 3. [facility] psychiatric service for depression. HOSPITAL COURSE: The patient is a 66-year-old female brought to the ER for severe abdominal pain. Her CT was consistent with perforated diverticulitis. She initially did not wish to have surgery; she was admitted to the intensive care unit on the surgical service for close monitoring. Within a few hours, she became febrile was not making any other improvement and was therefore taken to the operating room for exploratory laparotomy. She did have purulent fluid throughout the abdomen and sigmoid perforation. A Tutu procedure was performed. She was returned to intensive care postoperatively. She was kept on broad spectrum antibiotics. Her white count peaked at 13,000 on postoperative day #2, but then improved. She was afebrile. Diet was slowly advanced beginning with clears on postoperative day #4. She was also supplemented with TPN until her oral intake was improved. She appeared more depressed given her acute circumstances and we had the psychiatric team see her for that. As an outpatient her meds were of limited benefit, and she was therefore started on Remeron. She made slow but steady progress with PT and was gradually increasing her diet. Urine cultured out Alivia albicans and she had been started on Diflucan for that. The Ino drain was removed from the incision and TOI drain removed from the pelvis. The wound was being packed in several areas and can now be discontinued. She was stable for transfer to halfway facility on postoperative day #9. Her abdomen is soft, incision healing well and the colostomy functional. DISCHARGE INSTRUCTIONS: Transfer to [facility]. Continue to increase activity as tolerated. She may shower. She will need additional assistance with colostomy care. Follow up in Dr. Clark's office next week for removal of skin pan. DISCHARGE MEDICATIONS: Augmentin 875 mg p.o. b.i.d. x1 week, Diflucan 100 mg daily for 2 days to complete 1 week course, Remeron 30 mg at bedtime and Percocet 1-2 tablets every 4 hours as needed. Continue her previous home medications, Lipitor 40 mg daily, Flonase nasal spray 2 sprays daily, Krill oil supplement, lisinopril 2.5 mg daily, Protonix 40 mg daily, propranolol ER 80 mg daily. Discontinued medications were Zoloft 50 mg daily, Pamelor 10 mg at bedtime, and Excedrin Migraine as needed. She had also been given a prescription for [place] by her PCP, which she had not filled at the time of her admission. DEYSI
[2016-04-23] MEDS ORDERED: MIRTAZAPINE TAB 15 MG TAB PO SCH (21:00)
--- NOTE | 2016-04-28 19:38 | EDITING REQUIRED CODING QUERY ---
PRESENT ON ADMISSION QUERY To promote full compliance with coding requirements relating to pateint care, physician participation is requested in all cases of rn bsn uncertainty. Please assist us with the question(s) below: Please place an X within the parenthesis (x). The following diagnosis(es) listed in this patient's medical record require physician assistance to determine if they were present on admission (POA) or not. Please advise for each diagnosis whether it was present on admission, not present on admission, or if it was clinically undetermined. 1. SEPSIS located in progress notes and discharge summary (x ) Present On Admission ( ) Not Present On Admission ( ) Clinically Undetermined Thank you Michelle Smart *Definition of the present on admission (POA)-Present on admission is defined as present at the time the order for inpatient admission occurs. Conditions that develop during an outpatient encounter prior to a written order for inpatient admission (including emergency department, observation, or outpatient surgery) are considered present on admission.
[2016-07-15] MEDS ORDERED: OMEG10007 PO (13:19)
[2016-07-15] MEDS ORDERED: ATOR-24 PO (13:19)
[2016-07-15] MEDS ORDERED: FLUT0.15 NAE (13:19)
[2016-07-15] MEDS ORDERED: DOCU100C PO (13:19)
[2016-07-15] MEDS ORDERED: SENN-61 PO (13:19)
[2016-07-15] MEDS ORDERED: PROP80TA2 PO (13:19)
[2016-07-15] MEDS ORDERED: LISI-789 PO (13:19)
[2016-07-16] MEDS ORDERED: ACET325T96 PO (08:16)
[2016-07-16] MEDS ORDERED: OXYC-57 PO (08:16)
== END 2016-04-23 17:21 | DRG 854 ==
LOC: ENRESERVDT → ENRESERVTM → EDBD 10:06 → C.EDA 10:07 → C.MSICU 13:27 → C.2T 04-15 23:34 → C.3E 04-18 19:53
PROVIDERS: ADMIT Surgery; ATTEND Surgery
PROC: 0DBN0ZZ Excision of Sigmoid Colon, Open Approach (ICD-10-PCS; 2016-04-14)
PROC: 0D1N0Z4 Bypass Sigmoid Colon to Cutaneous, Open Approach (ICD-10-PCS; principal; 2016-04-14 09:00)
DX: A41.9 Sepsis, unspecified organism (principal); B37.49 Other urogenital candidiasis; K57.20 Diverticulitis of large intestine with perforation and abscess without bleeding; I34.1 Nonrheumatic mitral (valve) prolapse; Z90.49 Acquired absence of other specified parts of digestive tract; Z98.51 Tubal ligation status; E78.5 Hyperlipidemia, unspecified; I10 Essential (primary) hypertension; Z79.899 Other long term (current) drug therapy; Z87.891 Personal history of nicotine dependence; Z88.6 Allergy status to analgesic agent; Z88.5 Allergy status to narcotic agent; Z88.8 Allergy status to other drugs, medicaments and biological substances; F41.9 Anxiety disorder, unspecified; K21.9 Gastro-esophageal reflux disease without esophagitis; Z80.9 Family history of malignant neoplasm, unspecified; Z83.3 Family history of diabetes mellitus; Z66 Do not resuscitate; E87.6 Hypokalemia; Z79.82 Long term (current) use of aspirin; G43.909 Migraine, unspecified, not intractable, without status migrainosus; E83.39 Other disorders of phosphorus metabolism; E83.42 Hypomagnesemia; F32.9 Major depressive disorder, single episode, unspecified

== ENCOUNTER → 2016-07-27 | Day surgery (SDC) | payer OTHER ==
[2016-07-15 13:20] VITALS: BMI 23.0
[~2016-07-27] VITALS: Ht 170.2 cm; Wt 66.8 kg
[~2016-07-27] MED LIST changes: +ACET325T96 PO; -ASPI-390 PO; +ASPI-391 PO; +CIPR-255 PO; +DOCU100C PO; +ESMOLOL HCL 10 MG/ML 10 ML VIAL ONE; +HYDR-5688 PO; -INDSR80 PO; -KRIL1CAP7 PO; +LIDOCAINE HCL 2% 2 ML VIAL (20MG/ML) ONE; +LISI-789 PO; -LSN25 PO; +METR-163 PO; -NORT10CA PO; +OMEG10007 PO; +OXYC-57 PO; +PROP80TA2 PO; +PROPOFOL IV EMULSION 10 MG/ML 20 ML VIAL IV ONE; +SENN-61 PO
[2016-07-27 09:23] VITALS: Ht 170.2 cm; Wt 66.8 kg
--- NOTE | 2016-07-27 10:17 | Endo History and Physical ---
History & Physical Date of Service: Jul 27, 2016. Chief Complaint: Hx Diverticulitis Referring Physician: Dr. Turk History of Present Illness 66 yo CF who presents for colonoscopy via colostomy secondary to history of diverticulitis and scheduled for colostomy reversal tomorrow. Past Medical History Neurological Disorder, Arthritis, Gastrointestinal Disorder, Reflux, High Cholesterol, Hypertension, Liver Disease, Other Past Surgical History Hx Cardiac Surgery: No Hx Internal Defibrillator: No Hx Pacemaker: No Hx Abdominal Surgery: Yes (APPY, ESTER, COLON RESECTION WTIH COLOSTOMY, TUBAL LIGATION) Hx of Implantable Prosthesis: No Hx Post-Op Nausea and Vomiting: Yes (STAYED IN HOSP WITH GB COUPLE YRS- SURG PONV,MIGRAINE) Hx Cancer Surgery: No Hx Thoracic Surgery: No Hx Orthopedic: No Hx Urinary Tract Surgery: No Family History IBD Social History Smoking Status: Former Smoker Hx Substance Use: No Hx Alcohol Use: Yes (RARELY) Allergies Coded Allergies: Morphine (Verified Allergy, Severe, ANAPHYLAXIS, 07/16/16) Diphenhydramine (Verified Allergy, Intermediate, itching, 07/16/16) Hydrocodone (Verified Adverse Reaction, Intermediate, GI SYMPTOMS, 07/16/16 ) Current Medications Reported Home Medications Medications Dose Route/Sig Max Daily Dose Days Date Category Dose Instructions Tylenol (Acetaminophen) 325 Mg Tab 650 Mg PO PRN 07/16/16 Reported Percocet 5MG/325MG (Oxycodone/Acetaminophen) Tab 1 Tablet PO Q6H PRN 07/16/16 Reported PAIN Senokot (Senna) 8.6 Mg Tab 1 Tab PO PRN PRN 07/15/16 Reported Stool Softener (Docusate Sodium) 100 Mg Cap 1 Cap PO BID 07/15/16 Reported Flonase Allergy Relief (Fluticasone Propionate (Nasal)) 50 Mcg/Act Spr 2 [place] ZOILA QAM 07/15/16 Reported [place]-3 (Fish Oil) 1 Ea Cap 1 Cap PO BID 07/15/16 Reported TAKES 2 TABS IN AM TAKES 1 TAB IN PM Lipitor (Atorvastatin Calcium) 40 Mg Tab 40 Mg PO HS 07/15/16 Reported Inderal (Propranolol HCl) 80 Mg Tab 80 Mg PO QAM 07/15/16 Reported Zestril (Lisinopril) 2.5 Mg Tab 1 Tab PO QAM 07/15/16 Reported Protonix (Pantoprazole Sodium) 40 Mg Tab 40 Mg PO QAM 11/12/15 Reported Vital Signs Weight (Kilograms): 66.82 Height (Feet): 5 Height (Inches): 7 Date Time Temp Pulse Resp B/P (MAP) Pulse Ox O2 Delivery O2 Flow Rate FiO2 07/27/16 09:32 36.6 73 20 139/87 98 Room Air Physical Exam General Appearance: WD/WN, no apparent distress Respiratory/Chest: Auscultation: breath sounds normal Cardiovascular: Heart Auscultation: RRR Abdomen: Bowel Sounds: normal Inspection & Palpation: soft, non-distended, no tenderness, guarding & rebound Assessment and Plan Assessment: 66 yo CF who presents for colonoscopy via colostomy secondary to history of diverticulitis and scheduled for colostomy reversal tomorrow. Plan: Proceed with colonoscopy via colostomy.
--- NOTE | 2016-07-27 10:51 | Discharge Instructions ---
Endoscopy Patient Instructions Date / Procedure(s) Performed Jul 27, 2016. Colonoscopy Allergy Information Coded Allergies: Morphine (Verified Allergy, Severe, ANAPHYLAXIS, 07/16/16) Diphenhydramine (Verified Allergy, Intermediate, itching, 07/16/16) Hydrocodone (Verified Adverse Reaction, Intermediate, GI SYMPTOMS, 07/16/16 ) Discharge Date / Findings Jul 27, 2016. Diverticulosis Medication Instructions OK to restart all medications today as prescribed Medications Dose Route/Sig Max Daily Dose Days Date Category Dose Instructions Tylenol (Acetaminophen) 325 Mg Tab 650 Mg PO PRN 07/16/16 Reported Percocet 5MG/325MG (Oxycodone/Acetaminophen) Tab 1 Tablet PO Q6H PRN 07/16/16 Reported PAIN Senokot (Senna) 8.6 Mg Tab 1 Tab PO PRN PRN 07/15/16 Reported Stool Softener (Docusate Sodium) 100 Mg Cap 1 Cap PO BID 07/15/16 Reported Flonase Allergy Relief (Fluticasone Propionate (Nasal)) 50 Mcg/Act Spr 2 [place] ZOILA QAM 07/15/16 Reported [place]-3 (Fish Oil) 1 Ea Cap 1 Cap PO BID 07/15/16 Reported TAKES 2 TABS IN AM TAKES 1 TAB IN PM Lipitor (Atorvastatin Calcium) 40 Mg Tab 40 Mg PO HS 07/15/16 Reported Inderal (Propranolol HCl) 80 Mg Tab 80 Mg PO QAM 07/15/16 Reported Zestril (Lisinopril) 2.5 Mg Tab 1 Tab PO QAM 07/15/16 Reported Protonix (Pantoprazole Sodium) 40 Mg Tab 40 Mg PO QAM 11/12/15 Reported Provider Instructions Activity Restrictions - No exercising or heavy lifting for 24 hours. - Do not drink alcohol the day of the procedure. - Do not drive a car or operate machinery until the day after the procedure. - Do not make any important decisions or sign important papers in 24 hours after the procedure. Following Day: - Return to full activity which may include returning to work/school. Diet Start your diet with liquids and light foods (jello, soup, juice, toast). Then eat your usual diet if not nauseated. Treatment For Common After Affects For mild abdominal pain, bloating, or excessive gas: - Rest - Eat lightly - Lie on right side Follow-Up Information Follow-up with Dr. Turk as scheduled Anesthesia Information What You Should Know You have had a procedure that required some medicine to reduce anxiety and discomfort. This treatment is called moderate sedation. After receiving the treatment, you may be sleepy, but you will be able to breathe on your own. The effects of the treatment may last for several hours. Follow these instructions along with Activity/Diet recommendations noted above: * Do NOT do anything where dizziness or clumsiness would be dangerous. * Rest quietly at home today, then you can be up and about tomorrow. * Have a responsible person stay with you the rest of today. * You may have had an I.V. today. If so, you may take the dressing off later today. Recommendations Call your doctor if: * Trouble breathing * Continuous vomiting for more than 24 hours * Temperature above 101 degrees * Severe abdominal pain or bloating * Pain not relieved by pain medicine ordered * There is increased drainage or redness from any incision * A large amount of rectal bleeding greater than 2-3 tablespoons. (If you had a polyp/s removed or have hemorrhoids, a small amount of blood - from the rectum is to be expected.) * You have any unanswered questions or concerns. IN THE EVENT OF A SERIOUS EMERGENCY, GO TO THE NEAREST EMERGENCY ROOM Your discharge instructions were prepared by provider Ramesh Tran. Patient Instructions Signature Page Lavern Mahoney Patient (or Guardian) Signature/Date: I have read and understand the instructions given to me by my caregivers. Caregiver/RN/Doctor Signature/Date: The above-named patient and/or guardian has received patient instructions on this date. + Original Patient Signature Page (only) stays with chart. Please make copy for patient.
--- NOTE | 2016-07-27 11:03 | GI REPORT ---
Procedure Date: 07/27/2016 10:15 AM Procedure: Colonoscopy Indications: Follow-up of diverticulitis Medicines: Monitored Anesthesia Care Complications: No immediate complications. Estimated Blood Loss: Estimated blood loss: none. Procedure: Pre-Anesthesia Assessment: - Prior to the procedure, a History and Physical was performed, and patient medications and allergies were reviewed. The patient's tolerance of previous anesthesia was also reviewed. The risks and benefits of the procedure and the sedation options and risks were discussed with the patient. All questions were answered, and informed consent was obtained. Prior Anticoagulants: The patient has taken no previous anticoagulant or antiplatelet agents. ASA Grade Assessment: III - A patient with severe systemic disease. After reviewing the risks and benefits, the patient was deemed in satisfactory condition to undergo the procedure. After I obtained informed consent, the scope was passed under direct vision. Throughout the procedure, the patient's blood pressure, pulse, and oxygen saturations were monitored continuously. The scope was introduced through the sigmoid colostomy and advanced to the cecum, identified by appendiceal orifice and ileocecal valve. The scope was then introduced through the anus and advanced to the rectum. A moderate amount of mucus was noted in the rectum. The colonoscopy was performed without difficulty. The patient tolerated the procedure well. The quality of the bowel preparation was good. The ileocecal valve and the appendiceal orifice were photographed. Findings: A single small-mouthed diverticulum was found in the sigmoid colon. Impression: - Diverticulosis in the sigmoid colon. - Mild proctitis with medium amount of mucus noted. - No specimens collected. Recommendation: - Clear liquid diet. - Continue present medications. - Proceed with colostomy reversal. Ramesh Tran, 07/27/2016 11:03:15 AM This report has been signed electronically. Note Initiated On: 07/27/2016 10:15 AM I attest to the content of the Intraoperative Record and orders documented therein, exceptions below
[2016-07-27 11:23] VITALS: BP 148/91; PULSE 78; O2SAT 96
--- NOTE | 2016-07-27 11:23 | Anesthesiology Progress Note ---
Anesthesia Post Op Note Date & Time Jul 27, 2016 at 11:23 Vital Signs Pain Intensity: 0 Vital Signs Past 12 Hours Date Time Temp Pulse Resp B/P (MAP) Pulse Ox O2 Delivery O2 Flow Rate FiO2 07/27/16 11:08 81 20 144/92 96 Room Air 07/27/16 10:53 74 20 120/73 98 Room Air 07/27/16 09:32 36.6 73 20 139/87 98 Room Air Notes Mental Status: alert / awake / arousable, participated in evaluation Pt Amnestic to Procedure: Yes Nausea / Vomiting: adequately controlled Pain: adequately controlled Airway Patency, RR, SpO2: stable & adequate BP & HR: stable & adequate Hydration State: stable & adequate Anesthetic Complications: no major complications apparent
== END | disposition home or self-care (01) ==
LOC: C.GI 08:56
PROVIDERS: ATTEND Internal Medicine
DX: K57.30 Diverticulosis of large intestine without perforation or abscess without bleeding (principal); K62.89 Other specified diseases of anus and rectum; E78.00 Pure hypercholesterolemia, unspecified; K21.9 Gastro-esophageal reflux disease without esophagitis; I10 Essential (primary) hypertension; Z90.49 Acquired absence of other specified parts of digestive tract; Z93.3 Colostomy status; Z87.891 Personal history of nicotine dependence

== ENCOUNTER 2016-07-28 05:14 | Inpatient (IN) | payer OTHER ==
[2016-07-16 08:17] VITALS: BMI 22.0
--- NOTE | 2016-07-16 08:52 | PAT Medication Instructions ---
Service Date July 16, 2016. Current Home Medication List Acetaminophen Tab (Tylenol), 650 MG PO PRN Atorvastatin (Lipitor), 40 MG PO HS Docusate Sodium (Stool Softener), 1 CAP PO BID Fish Oil ([place]-3), 1 CAP PO BID Fluticasone Propionate (Nasal) (Flonase Allergy Relief), 2 SPRAY ZOILA QAM Lisinopril (Zestril), 1 TAB PO QAM Oxycodone/Acetaminophen 5MG/325MG (Percocet 5MG/325MG), 1 TABLET PO Q6H PRN for Pain Pantoprazole (Protonix), 40 MG PO QAM Propranolol (Inderal), 80 MG PO QAM Senna (Senokot), 1 TAB PO PRN PRN for Constipation Medication Instructions For Your Scheduled Surgery - Hold the following medications 2 weeks prior to surgery: Fish Oil ([place]-3), 1 CAP PO BID - Hold the following medications the morning of surgery: Lisinopril (Zestril), 1 TAB PO QAM Docusate Sodium (Stool Softener), 1 CAP PO BID - Take the following medications the morning of surgery with a sip of water OTHERWISE NOTHING TO EAT OR DRINK AFTER MIDNIGHT: Oxycodone/Acetaminophen 5MG/325MG (Percocet 5MG/325MG), 1 TABLET PO Q6H PRN for Pain (may take if needed up to 4 hours prior to surgery) Acetaminophen Tab (Tylenol), 650 MG PO PRN (may take if needed up to 4 hours prior to surgery) Pantoprazole (Protonix), 40 MG PO QAM Propranolol (Inderal), 80 MG PO QAM Fluticasone Propionate (Nasal) (Flonase Allergy Relief), 2 SPRAY ZOILA QAM - Take the following medications as scheduled the night before surgery: Oxycodone/Acetaminophen 5MG/325MG (Percocet 5MG/325MG), 1 TABLET PO Q6H PRN for Pain Docusate Sodium (Stool Softener), 1 CAP PO BID Atorvastatin (Lipitor), 40 MG PO HS Acetaminophen Tab (Tylenol), 650 MG PO PRN If you have any questions please call us at [phone] or [phone] or [phone]
[2016-07-16 09:18] LABS: BASO % 0.4 %; BASO ABS # 0.02 K/uL (0-0.2); COMPLETE YES; HEMATOCRIT 43.3 % (37-47); IG% 0.9 %; LYMPH % 27.9 %; LYMPH ABS # 1.55 K/uL (1.2-3.4); MEAN CORPUSCULAR HEMOGLOBIN 31.9 pg (25-34); MEAN CORPUSCULAR HGB CONC 33.3 g/dl (32-36); MEAN PLATELET VOLUME 9.2 fL (7.4-10.4); MONO % 7.4 %; NEUT % 61.4 %; PLATELET COUNT 344 K/uL (130-400); RED BLOOD COUNT 4.51 M/uL (4.2-5.4); WHITE BLOOD COUNT 5.56 K/uL (4.8-10.8)
[2016-07-16 10:33] LABS: CALCIUM 9.6 mg/dl (8.5-10.1); CREATININE 0.7 mg/dl (0.60-1.20); POTASSIUM 4.3 mmol/L (3.5-5.1)
[2016-07-28] VITALS (11 sets, daily range): BP systolic 106–155; BP diastolic 67–93; PULSE 70–87; TEMP 36.4–36.9; O2SAT 95–99; Ht 170.2 cm; Wt 66.3 kg
[~2016-07-28] VITALS: Ht 170.2 cm; Wt 66.3 kg
[~2016-07-28 05:14] MED LIST changes: -ASPI-391 PO; -CIPR-255 PO; -ESMOLOL HCL 10 MG/ML 10 ML VIAL ONE; -HYDR-5688 PO; -LIDOCAINE HCL 2% 2 ML VIAL (20MG/ML) ONE; -METR-163 PO; -PROPOFOL IV EMULSION 10 MG/ML 20 ML VIAL IV ONE
[2016-07-28] MEDS ORDERED: ASPI-391 PO (05:50)
[2016-07-28] MEDS ORDERED: LACTATED RINGER'S 1000ML 1,000 ML IV SCH (06:00)
[2016-07-28] MEDS ORDERED: CEFOXITIN IV 2,000 MG in DEXTROSE 5% 50ML 50 ML IV SCH (06:00)
[2016-07-28] MEDS ORDERED: ONDANSETRON INJ 2 MG/ML 2 ML VIAL ONE ×2 (06:47→09:51)
[2016-07-28] MEDS ORDERED: PROPOFOL IV EMULSION 10 MG/ML 20 ML VIAL IV ONE (06:47)
[2016-07-28] MEDS ORDERED: MIDAZOLAM HCL 1 MG/ML 2ML VIAL ONE (06:47)
[2016-07-28] MEDS ORDERED: GLYCOPYRROLATE INJ 0.2 MG/ML VIAL ONE ×2 (06:47→07:45)
[2016-07-28] MEDS ORDERED: FENTANYL CITRATE INJ 50 MCG/1 ML 2 ML VIAL ONE (06:47)
[2016-07-28] MEDS ORDERED: ROCURONIUM BROMIDE 10 MG/ML 5 ML VIAL ONE (06:47)
[2016-07-28] MEDS ORDERED: LIDOCAINE HCL 2% 2 ML VIAL (20MG/ML) ONE (06:47)
[2016-07-28] MEDS ORDERED: DEXAMETHASONE SOD INJ 4 MG/ML VIAL ONE (06:47)
[2016-07-28] MEDS ORDERED: NEOSTIGMINE METHYLSULFATE 5 MG/5 ML SYR ONE (06:47)
--- NOTE | 2016-07-28 06:49 | History & Physical Bridge Note ---
H&P Re-Evaluation Bridge Note: I have examined the patient, reviewed the History & Physical and in the interval since the performance of the History & Physical I have noted the following changes of clinical significance: No changes noted
[2016-07-28] MEDS ORDERED: CEFOXITIN SOD 1 GM VIAL ONE (07:28)
[2016-07-28] MEDS ORDERED: PHENYLEPHRINE 100MCG/ML 5ML SYR ONE (07:30)
[2016-07-28] MEDS ORDERED: HYDROmorphone INJ 2 MG/ML SYR/VIAL ONE (07:34)
[2016-07-28] MEDS ORDERED: SODIUM CHLORIDE 0.9% INJ 10 ML VIAL ONE (07:37)
[2016-07-28] MEDS ORDERED: SUCCINYLCHOLINE CHLORIDE 20 MG/ML 10 ML VIAL IV ONE (07:45)
[2016-07-28] MEDS ORDERED: CISATRACURIUM BESYLATE IV SOLN 2 MG/ML 10 ML VIAL ONE (07:45)
--- NOTE | 2016-07-28 09:38 | [facility] Post Operative Brief Note ---
Immediate Operative Summary Operative Date Jul 28, 2016. Pre-Operative Diagnosis Diverticulitis, colon; history of colostomy Post-Operative Diagnosis Same as preop Procedure(s) Performed Colostomy Closure with partial colectomy Surgeon Dr. Clark Dairy Bacteriologist Surgeon(s) Cyndee Contreras PA-C Estimated Blood Loss 75 cc Findings diverticulosis Specimens B: left colon Drains #15 Rd TOI to pelvis and penroses to subcu Complication(s) None Disposition Recovery Room / PACU
[2016-07-28] MEDS ORDERED: PROMETHAZINE HCL INJ 12.5 MG in SODIUM CHLORIDE 0.9% 50ML 50 ML IV PRN ×2 (09:45→12:30)
[2016-07-28] MEDS ORDERED: NALOXONE HCL 0.4 MG/1 ML VIAL/CARP IV PRN (09:45)
[2016-07-28] MEDS ORDERED: FLUMAZENIL 0.1 MG/1 ML 10 ML VIAL IV PRN (09:45)
[2016-07-28] MEDS ORDERED: EpHEDrine SULFATE INJ 50 MG/ML AMP IV PRN (09:45)
[2016-07-28] MEDS ORDERED: PROMETHAZINE HCL INJ 25 MG in SODIUM CHLORIDE 0.9% 50ML 50 ML IV PRN (09:45)
[2016-07-28] MEDS ORDERED: ONDANSETRON INJ 2 MG/ML 2 ML VIAL IV PRN (09:45)
[2016-07-28] MEDS ORDERED: ATROPINE SULFATE 0.1 MG/ML 5ML SYR IV PRN (09:45)
[2016-07-28] MEDS ORDERED: HYDROmorphone INJ 1 MG/ML SYR IV PRN (09:45)
[2016-07-28] MEDS: LABETALOL HCL IV 5 MG/ML 20ML IV PRN ×2 (09:58→10:11)
[2016-07-28] MEDS ORDERED: KETOROLAC TROMETHAMINE 30 MG/ML VIAL IV STA (10:50)
[2016-07-28] MEDS ORDERED: KETOROLAC TROMETHAMINE 30 MG/ML VIAL ONE (10:52)
[2016-07-28] MEDS ORDERED: HYDROmorphone INJ 2 MG/ML SYR/VIAL IV PRN (11:00)
--- NOTE | 2016-07-28 11:12 | OPERATIVE REPORT ---
DATE OF OPERATION: 07/28/2016 NAME OF OPERATION: Colostomy takedown with partial colectomy and colorectal anastomosis. PREOPERATIVE DIAGNOSIS: History of colostomy with diverticulitis. POSTOPERATIVE DIAGNOSIS: Same. STAFF SURGEON: Dr. Clark. JANITORIAL ACCOUNT MANAGER: David Chavira PA-C. ANESTHESIA: General. PROCEDURE: The patient was brought in the operating room and placed on the operating table in supine position. Orogastric tube, pneumatic stockings, and Ballesteros catheter were placed. Her abdomen was prepped and draped in usual fashion. A Prolene suture was placed in the colostomy to close the colostomy during dissection. Incision was made in the midline excising the scar from just above the umbilicus to the symphysis pubis, carrying dissection down through significant adipose tissue, entering the abdominal cavity, encountering adhesions on the omentum. These were taken down. The small-bowel was mobilized from the pelvis. There were some adhesions. The rectum was identified. At this point, the rectosigmoid was mobilized and I had to remove several centimeters of proximal tissue to obtain a clean rectal edge and the patient did have 2-3 diverticula. At this point, the stoma was mobilized by incising the skin around the stoma and mobilizing it from the surrounding soft tissue and fascia, and then the proximal colon transected several centimeters from the end using a FRANCISCO 60 stapler. The left colon did appear to be of good length, the staple line was removed, and then an end-to-end anastomosis of the descending colon to the rectum was performed in a 2-layer handsewn anastomosis with a mucosal layer of running 2-0 chromic catgut, seromuscular layer of interrupted 3-0 silk suture. The abdomen was irrigated with antibiotic solution. A 15 round Chance-Harris drain placed into the pelvis, secured to the skin using 3-0 nylon suture, this was through a separate stab incision. The midline incision was then closed, reapproximating the peritoneum and posterior fascia using #1 chromic catgut suture, then the anterior fascia using both running and interrupted #1 PDS suture. Quarter-inch [place] drain placed into the subcutaneous space, secured to skin using 3-0 nylon suture. Skin was reapproximated using pan. The stoma site was then closed by reapproximating the fascia using interrupted #1 PDS suture. Quarter-inch [place] drain placed into the subcutaneous space and then the skin was reapproximated using 3-0 nylon suture. Ballesteros catheter was left in place, NG tube was removed. Pneumatic stockings were left in place. The patient was transferred to recovery room in stable condition. I attest to the content of the Intraoperative Record and any orders documented therein. Any exceptions are noted below. MTDD
--- NOTE | 2016-07-28 11:27 | Anesthesiology Progress Note ---
Anesthesia Post Op Note Date & Time Jul 28, 2016 at 11:27 Vital Signs Pain Intensity: 8 Vital Signs Past 12 Hours Date Time Temp Pulse Resp B/P (MAP) Pulse Ox O2 Delivery O2 Flow Rate FiO2 07/28/16 11:15 63 12 139/78 96 Nasal Cannula 4 07/28/16 11:05 63 12 137/88 96 Nasal Cannula 4 07/28/16 10:55 63 12 139/81 96 Nasal Cannula 4 07/28/16 10:45 63 12 150/91 97 Nasal Cannula 4 07/28/16 10:35 36.2 63 12 151/88 97 Nasal Cannula 4 07/28/16 10:25 36.2 63 12 166/98 97 Nasal Cannula 4 07/28/16 10:15 64 12 151/95 97 Nasal Cannula 4 07/28/16 10:05 64 12 162/92 97 Diffusion Mask 10 07/28/16 09:55 36.5 87 12 156/110 100 Diffusion Mask 10 07/28/16 09:44 36.5 93 16 172/91 100 Diffusion Mask 10 07/28/16 05:59 36.7 84 18 155/93 98 Room Air Notes Mental Status: alert / awake / arousable, participated in evaluation Pt Amnestic to Procedure: Yes Nausea / Vomiting: adequately controlled Pain: adequately controlled Airway Patency, RR, SpO2: stable & adequate BP & HR: stable & adequate Hydration State: stable & adequate Anesthetic Complications: no major complications apparent
[2016-07-28] MEDS: HYDROmorphone INJ 0.5 MG/0.5 ML SYR ONE ×2 (11:32→12:41)
[2016-07-28] MEDS: D5W AND 1/2NSS + 20MEQ KCL 1,000 ML IV SCH ×2 (12:41→21:11)
--- NOTE | 2016-07-28 13:27 | Medical Student: [facility] ---
Operative Report Operative Date Jul 28, 2016. Pre-Operative Diagnosis Colostomy with history of diverticulitis Post-Operative Diagnosis Same. Procedure(s) Performed Colostomy closure, partial colonic resection, and anastomosis of recto-sigmoid colon and descending colon. Surgeon Stephen Clark M.D. [employer] Director Surgeon(s) David Chavira PA-C Estimated Blood Loss 75 cc Findings Diverticula were visualized in the left colon. Large epiploic appendices were also present. Abdomen had diffuse adhesions between bowel and abdominal wall. Specimens Recto-sigmoid colon Drains 15 Round Chance-Harris drain in Rt abdomen. Fowler drain at incision base Anesthesia General Complication(s) None Disposition Recovery Room / PACU Implants None Description of Procedure Lavern Mahoney was brought into the operating room and placed on the table in the supine position. After placement of an orogastric rube, pneumatic stockings, and Ballesteros catheter, the abdomen was draped and prepared in normal sterile fashion. A Proline suture was placed in the opening of the colostomy to secure it during the reversal. The abdomen was then incised twice, flanking a previous surgical scar, and the scar was then removed. Incision was performed from the umbilicus to the pubic symphysis and was then advanced posteriorly until the greater sac was entered. Upon visualization of the viscera, diffuse adhesions connecting the bowel to the abdominal wall were seen. Adhesions were then mobilized from the wall. The blind end of the recto-sigmoid colon was found and inspected. Diverticula and many large epiploic appendices were visualized, and the appendices were removed to better perform the anastomosis. The distal colon was then transected to form a new stoma in preparation for the anastomosis. The colostomy was removed from the left abdominal wall and was reintroduced to the greater sac. An anastomosis between the recto-sigmoid colon and descending colon was then performed by sewing the mucosal layers with 2-0 Chromic catgut and by sewing the seromuscular layers with 3-0 silk suture. The greater sac was then irrigated and suctioned. A 15 Round Chance-Harris drain was placed in the right abdomen, secured with nylon suture. The abdomen was then closed with #1 catgut and #1 PDS. Fowler drain was placed at the base of the incision site to drain the subcutaneous space. The NG tube was removed, and the pneumatic stockings were left in place. The patient was then transferred to the PACU in stable condition for recovery.
[2016-07-28] MEDS: CEFOXITIN IV 1,000 MG in DEXTROSE 5% 50ML 50 ML IV SCH ×2 (13:44→22:06)
[2016-07-28] MEDS: PANTOprazole INJ 40 MG in SYRINGE 0 ML IV SCH (13:44)
[2016-07-28] MEDS: KETOROLAC TROMETHAMINE 30 MG/ML VIAL IV. SCH ×2 (13:45→20:10)
--- NOTE | 2016-07-28 15:08 | Medical Consult ---
Consultation Note Date of Service Jul 28, 2016. Consultation Note DATE OF ADMISSION: 07/28/2016 DATE OF CONSULT: 07/28/2016 REASON FOR CONSULT: Medical management post op- s/p colostomy take down with partial colectomy and colorectal anastomosis HISTORY OF PRESENT ILLNESS: The patient is a 66-year-old female with PMH as below, who was recently admitted in 03/2016 for perforated diverticulitis and underwent colostomy by Dr Clark. This admission she is under surgical service and underwent colostomy take down with partial colectomy and colorectal anastomosis. We have been consulted for medical management post operatively. Patient's pain is well controlled. No chest pain, SOB, nausea, vomiting, fever, chills, cough. PAST MEDICAL / SURGICAL HISTORY: Appendectomy, cholecystectomy, RELAY SHOP TESTER surgery, tubal ligation, hyperlipidemia, hypertension, mitral valve prolapse. MEDICATIONS: Include propranolol, Protonix and Lipitor, Lisinopril 2.5 mg REVIEW OF SYSTEMS: ROS as per HPI, all other systems reviewed and are negative. FAMILY HISTORY: Noncontributory. SOCIAL HISTORY: She is a former smoker. ALLERGIES: SHE DOES HAVE ALLERGIES OR REACTIONS TO MORPHINE, DIPHENHYDRAMINE, ACETAMINOPHEN AND HYDROCODONE. PHYSICAL EXAMINATION: GENERAL: AAOX3, no distress HEAD: Normocephalic, atraumatic. EYES: No icterus NECK: Supple, No VIOLETTE LUNGS: AEBE, Clear without respiratory distress. HEART: Regular rate and rhythm, no murmurs ABDOMEN: S/P Surgery- Dressing present EXTREMITIES: No edema ASSESSMENT AND PLAN: STATUS POST COLOSTOMY TAKE DOWN WITH PARTIAL COLECTOMY /COLO-RECTAL ANASTOMOSIS -Post operative day 0 -Pain mx, wound care, PT/OT per primary team -Monitor H & H per primary team HTN Stable -Continue with lisinopril 2.5 mg, propranalol- home medications DYSLIPIDEMIA -Continue with lipitor GERD Continue with protonix DVT PROPHYLAXIS SCDS/TEDS for now- post operative status DISPOSITION per primary team Thank you for allowing us to participate in the care of this patient.
[2016-07-28] MEDS: HYDROmorphone INJ 1 MG/ML SYR IV PRN ×2 (16:35→19:48)
[2016-07-29] VITALS (7 sets, daily range): BP systolic 100–151; BP diastolic 65–78; PULSE 73–90; TEMP 36.5–36.8; O2SAT 93–99
[2016-07-29] MEDS: KETOROLAC TROMETHAMINE 30 MG/ML VIAL IV. SCH ×4 (01:31→19:54)
[2016-07-29] MEDS: D5W AND 1/2NSS + 20MEQ KCL 1,000 ML IV SCH ×3 (05:07→20:31)
[2016-07-29] MEDS: CEFOXITIN IV 1,000 MG in DEXTROSE 5% 50ML 50 ML IV SCH ×3 (05:07→21:41)
[2016-07-29] MEDS: HYDROmorphone INJ 1 MG/ML SYR IV PRN ×3 (05:26→21:41)
[2016-07-29 05:46] LABS: HEMATOCRIT 36.6 % (37-47); MEAN CELL VOLUME 93.6 fL (80-100); MEAN CORPUSCULAR HEMOGLOBIN 31.7 pg (25-34); MEAN CORPUSCULAR HGB CONC 33.9 g/dl (32-36); MEAN PLATELET VOLUME 9.1 fL (7.4-10.4); PLATELET COUNT 319 K/uL (130-400); RED BLOOD COUNT 3.91 M/uL (4.2-5.4); WHITE BLOOD COUNT 19.86 K/uL (4.8-10.8)
[2016-07-29 05:56] LABS: PROTHROMBIN TIME (PATIENT) 11.2 SECONDS (9.0-12.0)
--- NOTE | 2016-07-29 06:11 | Surgery Progress Note ---
Surgery Progress Note Date of Service Jul 29, 2016. Subjective No bowel movement, No flatus, No nausea, No vomiting alert, in no distress Objective Vital Signs: Date Time Temp Pulse Resp B/P (MAP) Pulse Ox O2 Delivery O2 Flow Rate FiO2 07/29/16 03:15 36.6 74 16 100/65 (77) 98 Nasal Cannula 4.0 07/28/16 23:45 98 Nasal Cannula 4.0 07/28/16 23:12 36.4 82 20 106/67 (80) 97 Nasal Cannula 4.0 07/28/16 20:07 36.9 79 16 126/70 (88) 96 07/28/16 16:30 Nasal Cannula 4.0 07/28/16 16:30 72 145/77 (99) 07/28/16 14:55 36.5 76 16 145/76 (99) 99 4.0 07/28/16 13:50 36.8 87 16 132/83 (99) 97 4.0 07/28/16 12:45 73 16 134/74 (94) 96 4.0 07/28/16 12:20 36.4 70 16 130/78 (95) 97 4.0 07/28/16 12:00 95 Nasal Cannula 4.0 07/28/16 11:50 Nasal Cannula 4.0 07/28/16 11:50 36.5 84 12 137/88 (104) 95 Nasal Cannula 4.0 07/28/16 11:30 63 12 140/77 96 Nasal Cannula 4 07/28/16 11:15 63 12 139/78 96 Nasal Cannula 4 07/28/16 11:05 63 12 137/88 96 Nasal Cannula 4 07/28/16 10:55 63 12 139/81 96 Nasal Cannula 4 07/28/16 10:45 63 12 150/91 97 Nasal Cannula 4 07/28/16 10:35 36.2 63 12 151/88 97 Nasal Cannula 4 07/28/16 10:25 36.2 63 12 166/98 97 Nasal Cannula 4 07/28/16 10:15 64 12 151/95 97 Nasal Cannula 4 07/28/16 10:05 64 12 162/92 97 Diffusion Mask 10 07/28/16 09:55 36.5 87 12 156/110 100 Diffusion Mask 10 07/28/16 09:44 36.5 93 16 172/91 100 Diffusion Mask 10 General Appearance: no apparent distress Respiratory/Chest: no respiratory distress Abdomen: soft Incision(s): intact, drainage (expected drainage) Laboratory Results: Results Past 24 Hours Test 07/29/16 05:30 Range/Units White Blood Count 19.86 4.8-10.8 K/uL Red Blood Count 3.91 4.2-5.4 M/uL Hemoglobin 12.4 12.0-16.0 g/dL Hematocrit 36.6 37-47 % Mean Corpuscular Volume 93.6 80-100 fL Mean Corpuscular Hemoglobin 31.7 25-34 pg Mean Corpuscular Hemoglobin Concent 33.9 32-36 g/dl RDW Standard Deviation 44.8 36.4-46.3 fL RDW Coefficient of Variation 13.1 11.5-14.5 % Platelet Count 319 130-400 K/uL Mean Platelet Volume 9.1 7.4-10.4 fL Prothrombin Time 11.2 9.0-12.0 SECONDS Prothromb Time International Ratio 1.0 0.9-1.1 Assessment & Plan 07/29/16- s/p takedown colostomy, partial colectomy, colorectal anastomosis pt w/o acute chgs- ice only, cont atbx, sc heparin, leave ceron PT, check labs
[2016-07-29 06:20] LABS: CALCIUM 8.2 mg/dl (8.5-10.1); CREATININE 0.9 mg/dl (0.60-1.20); PHOSPHORUS 2.3 mg/dl (2.5-4.9); POTASSIUM 4.3 mmol/L (3.5-5.1)
[2016-07-29] MEDS: HEPARIN SOD 5000 UNIT/0.5 ML CARP SQ SCH ×2 (08:19→20:30)
--- NOTE | 2016-07-29 10:29 | Anesthesiology Progress Note ---
Anesthesia Post Op Note Date & Time Jul 29, 2016 at 10:28 Vital Signs Pain Intensity: 8.0 Vital Signs Past 12 Hours Date Time Temp Pulse Resp B/P (MAP) Pulse Ox O2 Delivery O2 Flow Rate FiO2 07/29/16 09:57 97 Nasal Cannula 2.0 07/29/16 08:20 36.6 73 18 114/72 (86) 97 Nasal Cannula 2.0 07/29/16 03:15 36.6 74 16 100/65 (77) 98 Nasal Cannula 4.0 07/28/16 23:45 98 Nasal Cannula 4.0 07/28/16 23:12 36.4 82 20 106/67 (80) 97 Nasal Cannula 4.0 Notes Mental Status: alert / awake / arousable, participated in evaluation Pt Amnestic to Procedure: Yes Nausea / Vomiting: adequately controlled Pain: adequately controlled Airway Patency, RR, SpO2: stable & adequate BP & HR: stable & adequate Hydration State: stable & adequate Anesthetic Complications: no major complications apparent
[2016-07-29] MEDS: PANTOprazole INJ 40 MG in SYRINGE 0 ML IV SCH (11:08)
--- NOTE | 2016-07-29 11:08 | Medical Student: [facility] ---
Med Student Progress Note Date of Service Jul 29, 2016. Subjective Pt evaluation today including: conversation w/ patient Voiding: ceron catheter in place CC: "I'm doing better today" Ms. Mahoney is a 66 year old pleasant female post-operative day 1 for colostomy reversal, partial colectomy, and anastomosis of her colon. She says she is "doing better today," and slept well all night without having to ask for pain medication. She rates her pain in the lower abdomen as a 9/10 currently and will ask for pain medication soon. She denies nausea, vomiting, chest pain, shortness of breath, and passing flatus and bowel movements. She was able to stand for approximately one minute today while assisted, but did not ambulate. She does not have any other concerns other than dreading the removal of her TOI drains because it was painful for her in a prior surgical recovery. Review of Systems Constitutional: + see HPI Objective Vital Signs Date Time Temp Pulse Resp B/P (MAP) Pulse Ox O2 Delivery O2 Flow Rate FiO2 07/29/16 09:57 97 Nasal Cannula 2.0 07/29/16 08:20 36.6 73 18 114/72 (86) 97 Nasal Cannula 2.0 07/29/16 03:15 36.6 74 16 100/65 (77) 98 Nasal Cannula 4.0 07/28/16 23:45 98 Nasal Cannula 4.0 07/28/16 23:12 36.4 82 20 106/67 (80) 97 Nasal Cannula 4.0 07/28/16 20:07 36.9 79 16 126/70 (88) 96 07/28/16 16:30 Nasal Cannula 4.0 07/28/16 16:30 72 145/77 (99) 07/28/16 14:55 36.5 76 16 145/76 (99) 99 4.0 07/28/16 13:50 36.8 87 16 132/83 (99) 97 4.0 07/28/16 12:45 73 16 134/74 (94) 96 4.0 07/28/16 12:20 36.4 70 16 130/78 (95) 97 4.0 07/28/16 12:00 95 Nasal Cannula 4.0 07/28/16 11:50 Nasal Cannula 4.0 07/28/16 11:50 36.5 84 12 137/88 (104) 95 Nasal Cannula 4.0 07/28/16 11:30 63 12 140/77 96 Nasal Cannula 4 07/28/16 11:15 63 12 139/78 96 Nasal Cannula 4 07/28/16 11:05 63 12 137/88 96 Nasal Cannula 4 Physical Exam General Appearance: WD/WN, no apparent distress Neck: no carotid bruits Respiratory/Chest: lungs clear, normal breath sounds, no respiratory distress Cardiovascular: regular rate, rhythm, no murmur Abdomen: + abnormal bowel sounds (no bowel sounds ausculated), + tenderness ( in lower quadrants) Neurologic/Psychiatric: alert, oriented x 3 Laboratory Results Last 24 Hours Test 07/29/16 05:30 White Blood Count 19.86 K/uL Red Blood Count 3.91 M/uL Hemoglobin 12.4 g/dL Hematocrit 36.6 % Mean Corpuscular Volume 93.6 fL Mean Corpuscular Hemoglobin 31.7 pg Mean Corpuscular Hemoglobin Concent 33.9 g/dl RDW Standard Deviation 44.8 fL RDW Coefficient of Variation 13.1 % Platelet Count 319 K/uL Mean Platelet Volume 9.1 fL Prothrombin Time 11.2 SECONDS Prothromb Time International Ratio 1.0 Sodium Level 144 mmol/L Potassium Level 4.3 mmol/L Chloride Level 111 mmol/L Carbon Dioxide Level 23 mmol/L Anion Gap 10.0 mmol/L Blood Urea Nitrogen 5 mg/dl Creatinine 0.90 mg/dl Est Creatinine Clear Calc Drug Dose 60.6 ml/min Estimated GFR () 77.8 Estimated GFR (Non- 67.1 BUN/Creatinine Ratio 6.0 Random Glucose 180 mg/dl Calcium Level 8.2 mg/dl Phosphorus Level 2.3 mg/dl Magnesium Level 2.0 mg/dl I & O 1055 cc IVF 800 cc urine 5 cc TOI drain Medications Medications (Trade) Dose Ordered Sig/Sara Route Start Time Stop Time Status Last Admin Dose Admin Potassium Chloride/Dextrose/ Sod Cl 1,000 ml @ 125 mls/hr Q8H IV 07/28/16 13:00 08/27/16 12:59 07/29/16 05:07 125 MLS/HR Cefoxitin Sodium 1000 mg/Dextrose 60 ml @ 100 mls/hr Q8H IV 07/28/16 14:00 08/07/16 13:59 07/29/16 05:07 100 MLS/HR Heparin Sodium (Porcine) (Heparin Sq 5000 Unit/0.5ml) 5,000 unit Q12H SQ 07/29/16 08:00 08/28/16 07:59 07/29/16 08:19 5,000 UNIT Pantoprazole Sodium 40 mg/ Syringe 10 ml @ 5 mls/min DAILY@11 IV 07/28/16 13:00 08/27/16 12:59 07/28/16 13:44 5 MLS/MIN Ketorolac Tromethamine (Toradol Inj) 30 mg Q6H IV. 07/28/16 14:00 07/30/16 08:01 07/29/16 08:21 30 MG Assessment and Plan Assessment and Plan: This is a 66 year old female POD #1 for colostomy reversal, partial colectomy, and colonic anastomosis. - Continue medications as prescribed. - Continue PT for ambulation. - Leave Ceron in place. - Coordinate social research assistant for home recovery plan.
[2016-07-29] MEDS ORDERED: SUMATRIPTAN SUCCINATE 25 MG TAB PO PRN (13:00)
--- NOTE | 2016-07-29 18:57 | Progress Note ---
Medicine Progress Note Date & Time of Visit: Jul 29, 2016 at 18:52. Subjective patient seen resting in bed states she has severe abdominal wall pain after she took a walk otherwise, denies nausea/vomiting denies chest pain, dyspnea, palpitations no other symptoms Objective Last 8 Hrs Date Time Temp Pulse Resp B/P (MAP) Pulse Ox O2 Delivery O2 Flow Rate FiO2 07/29/16 16:08 Room Air 07/29/16 15:19 36.8 86 16 130/77 (94) 93 Room Air 07/29/16 11:12 97 Room Air Physical Exam: General-oriented x 3, not in distress, speaks in sentences with no effort Head- atraumatic Eyes- EOMI, anicteric ENT- oropharynx clear Neck- supple, no JVD, no adenopathy Lungs- clear to auscultation b/l Heart- regular rhythm; no murmur, normal rate Abdomen- hypoactive bowel sounds, non distended, dressing in place- no bleeding ; soft, nontender Extremities- no pretibial edema, no calf tenderness Neuro- alert, oriented x 3; no gross focal deficits Skin- warm & dry Laboratory Results: Last 24 Hours Test 07/29/16 05:30 White Blood Count 19.86 K/uL Red Blood Count 3.91 M/uL Hemoglobin 12.4 g/dL Hematocrit 36.6 % Mean Corpuscular Volume 93.6 fL Mean Corpuscular Hemoglobin 31.7 pg Mean Corpuscular Hemoglobin Concent 33.9 g/dl RDW Standard Deviation 44.8 fL RDW Coefficient of Variation 13.1 % Platelet Count 319 K/uL Mean Platelet Volume 9.1 fL Prothrombin Time 11.2 SECONDS Prothromb Time International Ratio 1.0 Sodium Level 144 mmol/L Potassium Level 4.3 mmol/L Chloride Level 111 mmol/L Carbon Dioxide Level 23 mmol/L Anion Gap 10.0 mmol/L Blood Urea Nitrogen 5 mg/dl Creatinine 0.90 mg/dl Est Creatinine Clear Calc Drug Dose 60.6 ml/min Estimated GFR () 77.8 Estimated GFR (Non- 67.1 BUN/Creatinine Ratio 6.0 Random Glucose 180 mg/dl Calcium Level 8.2 mg/dl Phosphorus Level 2.3 mg/dl Magnesium Level 2.0 mg/dl Assessment & Plan STATUS POST COLOSTOMY TAKE DOWN WITH PARTIAL COLECTOMY /COLO-RECTAL ANASTOMOSIS -Post operative day 1 - has increased pain after walking PRN analgesics -Monitor H & H HTN Stable resume lisinopril 2.5 mg, propranalol when PO intake resumed DYSLIPIDEMIA - on lipitor GERD Continue with protonix DVT PROPHYLAXIS on Heparin Thank you for this consultation. We will follow the patient with you during their hospital stay. You can reach a member of the [facility] Hospitalist Team 13/09 via pager @ [phone]. Current Inpatient Medications: Current Inpatient Medications Medications (Trade) Dose Ordered Sig/Sara Route Start Time Stop Time Status Last Admin Dose Admin Potassium Chloride/Dextrose/ Sod Cl 1,000 ml @ 125 mls/hr Q8H IV 07/28/16 13:00 08/27/16 12:59 07/29/16 13:07 125 MLS/HR Cefoxitin Sodium 1000 mg/Dextrose 60 ml @ 100 mls/hr Q8H IV 07/28/16 14:00 08/07/16 13:59 07/29/16 14:06 100 MLS/HR Hydromorphone HCl (Dilaudid Inj) 0.5 mg Q3H PRN IV 07/28/16 09:45 08/11/16 09:44 Hydromorphone HCl (Dilaudid Inj) 1 mg Q3H PRN IV 07/28/16 09:45 08/11/16 09:44 07/29/16 15:30 1 MG Heparin Sodium (Porcine) (Heparin Sq 5000 Unit/0.5ml) 5,000 unit Q12H SQ 07/29/16 08:00 08/28/16 07:59 07/29/16 08:19 5,000 UNIT Promethazine HCl 25 mg/Sodium Chloride 51 ml @ 204 mls/hr Q6H PRN IV 07/28/16 09:45 08/27/16 09:44 Pantoprazole Sodium 40 mg/ Syringe 10 ml @ 5 mls/min DAILY@11 IV 07/28/16 13:00 08/27/16 12:59 07/29/16 11:08 5 MLS/MIN Ondansetron HCl (Zofran Inj) 4 mg Q6H PRN IV 07/28/16 09:45 08/27/16 09:44 Ketorolac Tromethamine (Toradol Inj) 30 mg Q6H IV. 07/28/16 14:00 07/30/16 08:01 07/29/16 13:59 30 MG Promethazine HCl 12.5 mg/Sodium Chloride 50.5 ml @ 204 mls/hr Q6H PRN IV 07/28/16 12:30 08/27/16 12:29 Sumatriptan Succinate (Imitrex Tab) 25 mg Q6 PRN PO 07/29/16 13:00 08/28/16 12:59
[2016-07-29] MEDS ORDERED: NURSING VERBAL MED ORDER ONE (22:15)
[2016-07-29] MEDS ORDERED: OXYCODONE/ACETAMINOPHEN 5-325 TAB PO ONE (22:30)
[2016-07-30] MEDS: KETOROLAC TROMETHAMINE 30 MG/ML VIAL IV. SCH ×2 (02:13→07:41)
[2016-07-30 04:39] LABS: HEMATOCRIT 35.3 % (37-47); MEAN CELL VOLUME 94.4 fL (80-100); MEAN CORPUSCULAR HEMOGLOBIN 28.9 pg (25-34); MEAN CORPUSCULAR HGB CONC 30.6 g/dl (32-36); MEAN PLATELET VOLUME 9.1 fL (7.4-10.4); PLATELET COUNT 295 K/uL (130-400); RED BLOOD COUNT 3.74 M/uL (4.2-5.4)
[2016-07-30 04:57] LABS: BUN/CREATININE RATIO 9.1 (10-20); CALCIUM 8.1 mg/dl (8.5-10.1); CREATININE 0.6 mg/dl (0.60-1.20); MAGNESIUM 2.1 mg/dl (1.8-2.4); PHOSPHORUS 2.2 mg/dl (2.5-4.9)
[2016-07-30] MEDS: D5W AND 1/2NSS + 20MEQ KCL 1,000 ML IV SCH ×2 (04:57→14:30)
[2016-07-30] MEDS: OXYCODONE/ACETAMINOPHEN 5-325 TAB PO PRN ×3 (04:59→19:04)
[2016-07-30] MEDS: CEFOXITIN IV 1,000 MG in DEXTROSE 5% 50ML 50 ML IV SCH ×3 (05:29→21:57)
[2016-07-30 07:03] LABS: POTASSIUM 5.1 mmol/L (3.5-5.1)
[2016-07-30] MEDS ORDERED: SODIUM PHOSPHATE 3 MMOL/1 ML INFUSION IV STA (07:03)
[2016-07-30 07:06] VITALS: BP 136/78; PULSE 78; TEMP 36.8; O2SAT 92
--- NOTE | 2016-07-30 07:07 | Surgery Progress Note ---
Surgery Progress Note Date of Service Jul 30, 2016. Subjective + flatus, No bowel movement, No nausea, No vomiting pressure last pm from ceron- removed this am Objective Vital Signs: Date Time Temp Pulse Resp B/P (MAP) Pulse Ox O2 Delivery O2 Flow Rate FiO2 07/29/16 23:45 Room Air 07/29/16 23:20 36.5 90 20 151/77 (101) 99 Room Air 07/29/16 19:34 36.8 84 16 134/78 (96) 96 Room Air 07/29/16 16:08 Room Air 07/29/16 15:19 36.8 86 16 130/77 (94) 93 Room Air 07/29/16 11:12 97 Room Air 07/29/16 09:57 97 Nasal Cannula 2.0 07/29/16 08:20 36.6 73 18 114/72 (86) 97 Nasal Cannula 2.0 07/29/16 08:05 Nasal Cannula 2.0 General Appearance: no apparent distress Respiratory/Chest: no respiratory distress Abdomen: soft Incision(s): drainage (from TOI- serous) Laboratory Results: Results Past 24 Hours Test 07/30/16 04:35 Range/Units White Blood Count 13.30 4.8-10.8 K/uL Red Blood Count 3.74 4.2-5.4 M/uL Hemoglobin 10.8 12.0-16.0 g/dL Hematocrit 35.3 37-47 % Mean Corpuscular Volume 94.4 80-100 fL Mean Corpuscular Hemoglobin 28.9 25-34 pg Mean Corpuscular Hemoglobin Concent 30.6 32-36 g/dl RDW Standard Deviation 46.3 36.4-46.3 fL RDW Coefficient of Variation 13.5 11.5-14.5 % Platelet Count 295 130-400 K/uL Mean Platelet Volume 9.1 7.4-10.4 fL Sodium Level 144 136-145 mmol/L Potassium Level 5.1 3.5-5.1 mmol/L Chloride Level 112 98-107 mmol/L Carbon Dioxide Level 28 21-32 mmol/L Anion Gap 4.0 3-11 mmol/L Blood Urea Nitrogen 5 7-18 mg/dl Creatinine 0.60 0.60-1.20 mg/dl Est Creatinine Clear Calc Drug Dose 90.9 ml/min Estimated GFR () 110.9 Estimated GFR (Non- 95.7 BUN/Creatinine Ratio 9.1 10-20 Random Glucose 130 70-99 mg/dl Calcium Level 8.1 8.5-10.1 mg/dl Phosphorus Level 2.2 2.5-4.9 mg/dl Magnesium Level 2.1 1.8-2.4 mg/dl Assessment & Plan 07/30/16- sips of clears- tray tomorrow, d/c ceron, NaPhos replacement decrease IV fluids, cont atbx, leave drain Dr Silva covering over weekend 07/29/16- s/p takedown colostomy, partial colectomy, colorectal anastomosis pt w/o acute chgs- ice only, cont atbx, sc heparin, leave ceron PT, check labs 07/29/16- s/p takedown colostomy, partial colectomy, colorectal anastomosis pt w/o acute chgs- ice only, cont atbx, sc heparin, leave ceron PT, check labs
[2016-07-30] MEDS ORDERED: SODIUM PHOSPHATE INJ 21 MMOL in SODIUM CHLORIDE 0.9% 500ML 500 ML IV ONE (07:30)
[2016-07-30] MEDS: HEPARIN SOD 5000 UNIT/0.5 ML CARP SQ SCH ×2 (07:54→20:53)
[2016-07-30] MEDS: PANTOprazole INJ 40 MG in SYRINGE 0 ML IV SCH (10:46)
[2016-07-30 15:17] VITALS: BP 140/73; PULSE 60; TEMP 36.9; O2SAT 96
--- NOTE | 2016-07-30 20:17 | Progress Note ---
Medicine Progress Note Date & Time of Visit: Jul 30, 2016 at 20:14. Subjective seen resting in bed states she has some discomfort on the lower abdomen trying to void today (+) flatus no nausea/vomiting no other symptoms Objective Last 8 Hrs Date Time Temp Pulse Resp B/P (MAP) Pulse Ox O2 Delivery O2 Flow Rate FiO2 07/30/16 15:17 36.9 60 18 140/73 (95) 96 Room Air Physical Exam: General-oriented x 3, not in distress, speaks in sentences with no effort Eyes- anicteric Neck- supple, no JVD Lungs- clear breath sounds bilaterally Heart- regular rhythm; no murmur, normal rate Abdomen- hypoactive bowel sounds, non distended, dressing in place- no bleeding ; soft, mild tenderness on the lower quadrants Extremities- no pretibial edema, no calf tenderness Neuro- alert, oriented x 3; no gross focal deficits Skin- warm & dry Laboratory Results: Last 24 Hours Test 07/30/16 04:35 White Blood Count 13.30 K/uL Red Blood Count 3.74 M/uL Hemoglobin 10.8 g/dL Hematocrit 35.3 % Mean Corpuscular Volume 94.4 fL Mean Corpuscular Hemoglobin 28.9 pg Mean Corpuscular Hemoglobin Concent 30.6 g/dl RDW Standard Deviation 46.3 fL RDW Coefficient of Variation 13.5 % Platelet Count 295 K/uL Mean Platelet Volume 9.1 fL Sodium Level 144 mmol/L Potassium Level 5.1 mmol/L Chloride Level 112 mmol/L Carbon Dioxide Level 28 mmol/L Anion Gap 4.0 mmol/L Blood Urea Nitrogen 5 mg/dl Creatinine 0.60 mg/dl Est Creatinine Clear Calc Drug Dose 90.9 ml/min Estimated GFR () 110.9 Estimated GFR (Non- 95.7 BUN/Creatinine Ratio 9.1 Random Glucose 130 mg/dl Calcium Level 8.1 mg/dl Phosphorus Level 2.2 mg/dl Magnesium Level 2.1 mg/dl Assessment & Plan STATUS POST COLOSTOMY TAKE DOWN WITH PARTIAL COLECTOMY /COLO-RECTAL ANASTOMOSIS - Post operative day 2 - bladder scan PRN straight cath for urinary retention > 400cc PRN analgesics -Monitor H & H HTN resume lisinopril 2.5 mg, propranolol when PO intake resumed DYSLIPIDEMIA - on lipitor GERD Continue with protonix DVT PROPHYLAXIS on Heparin Thank you for this consultation. We will follow the patient with you during their hospital stay. You can reach a member of the [facility] Hospitalist Team 13/09 via pager @ . Current Inpatient Medications: Current Inpatient Medications Medications (Trade) Dose Ordered Sig/Sara Route Start Time Stop Time Status Last Admin Dose Admin Potassium Chloride/Dextrose/ Sod Cl 1,000 ml @ 80 mls/hr [id number] IV 07/28/16 13:00 08/27/16 12:59 07/30/16 14:30 80 MLS/HR Cefoxitin Sodium 1000 mg/Dextrose 60 ml @ 100 mls/hr Q8H IV 07/28/16 14:00 08/07/16 13:59 07/30/16 13:36 100 MLS/HR Hydromorphone HCl (Dilaudid Inj) 0.5 mg Q3H PRN IV 07/28/16 09:45 08/11/16 09:44 07/30/16 16:57 0.5 MG Hydromorphone HCl (Dilaudid Inj) 1 mg Q3H PRN IV 07/28/16 09:45 08/11/16 09:44 07/29/16 21:41 1 MG Heparin Sodium (Porcine) (Heparin Sq 5000 Unit/0.5ml) 5,000 unit Q12H SQ 07/29/16 08:00 08/28/16 07:59 07/30/16 07:54 5,000 UNIT Promethazine HCl 25 mg/Sodium Chloride 51 ml @ 204 mls/hr Q6H PRN IV 07/28/16 09:45 08/27/16 09:44 Pantoprazole Sodium 40 mg/ Syringe 10 ml @ 5 mls/min DAILY@11 IV 07/28/16 13:00 08/27/16 12:59 07/30/16 10:46 5 MLS/MIN Ondansetron HCl (Zofran Inj) 4 mg Q6H PRN IV 07/28/16 09:45 08/27/16 09:44 Promethazine HCl 12.5 mg/Sodium Chloride 50.5 ml @ 204 mls/hr Q6H PRN IV 07/28/16 12:30 08/27/16 12:29 Sumatriptan Succinate (Imitrex Tab) 25 mg Q6 PRN PO 07/29/16 13:00 08/28/16 12:59 Oxycodone/ Acetaminophen (Percocet 5-325mg Tab) 1 tab Q4H PRN PO 07/30/16 00:15 08/13/16 00:14 07/30/16 19:04 1 TAB
[2016-07-30 23:12] VITALS: BP 132/82; PULSE 63; TEMP 36.5; O2SAT 95
[2016-07-30] MEDS: HYDROmorphone INJ 1 MG/ML SYR IV PRN (23:18)
[2016-07-31] MEDS: OXYCODONE/ACETAMINOPHEN 5-325 TAB PO PRN ×2 (01:04→20:25)
[2016-07-31] MEDS: D5W AND 1/2NSS + 20MEQ KCL 1,000 ML IV SCH ×2 (03:44→22:53)
[2016-07-31] MEDS: ONDANSETRON INJ 2 MG/ML 2 ML VIAL IV PRN ×2 (03:59→10:29)
[2016-07-31] MEDS: CEFOXITIN IV 1,000 MG in DEXTROSE 5% 50ML 50 ML IV SCH (05:33)
[2016-07-31] MEDS: HYDROmorphone INJ 1 MG/ML SYR IV PRN (06:09)
[2016-07-31 06:25] LABS: HEMATOCRIT 37.1 % (37-47); MEAN CELL VOLUME 93.5 fL (80-100); MEAN CORPUSCULAR HGB CONC 32.1 g/dl (32-36); PLATELET COUNT 321 K/uL (130-400); RED BLOOD COUNT 3.97 M/uL (4.2-5.4); WHITE BLOOD COUNT 8.79 K/uL (4.8-10.8)
[2016-07-31 07:07] LABS: BUN/CREATININE RATIO 5.9 (10-20); CALCIUM 8.5 mg/dl (8.5-10.1); CREATININE 0.72 mg/dl (0.60-1.20); MAGNESIUM 1.9 mg/dl (1.8-2.4); POTASSIUM 3.3 mmol/L (3.5-5.1)
[2016-07-31 07:18] VITALS: BP 145/87; PULSE 69; TEMP 36.5; O2SAT 97
[2016-07-31] MEDS: HEPARIN SOD 5000 UNIT/0.5 ML CARP SQ SCH ×2 (08:20→20:20)
--- NOTE | 2016-07-31 09:37 | SURGERY PROGRESS NOTE ---
DATE: 07/31/2016 DATE: 07/31/2016. Lavern appears a little bit confused this morning. This is the first time that I have seen her, although she was recently given some Imitrex for migraine. Her last vitals showed a temperature of 36.5, pulse 69, respirations 17, blood pressure 145/87. O2 sats 97 on 2 liters. I&O, she had a very little Kaz drainage of 5 mL. Urine output was 1100 overnight. I&O seems to be balanced. Laboratory pitts, her hemoglobin is 11.9 this morning. WBC is 8.79. Potassium is 3.3, BUN is 4, creatinine 0.72. At this point we will start her on clear liquids or dough cutter her IV replacement and replace her potassium.
[2016-07-31] MEDS: POTASSIUM CHLORIDE 20 MEQ TABCR PO SCH ×2 (10:30→17:34)
[2016-07-31] MEDS: PANTOprazole INJ 40 MG in SYRINGE 0 ML IV SCH (11:17)
[2016-07-31 15:10] VITALS: BP 127/84; PULSE 93; TEMP 36.8; O2SAT 93
--- NOTE | 2016-07-31 20:29 | Progress Note ---
Medicine Progress Note Date & Time of Visit: Jul 31, 2016 at 20:27. Subjective patient seen resting in bed, comfortable states she feels better this evening headache resolved tolerating clears (+) flatus no other symptoms Objective Last 8 Hrs Date Time Temp Pulse Resp B/P (MAP) Pulse Ox O2 Delivery O2 Flow Rate FiO2 07/31/16 16:00 Room Air 07/31/16 15:10 36.8 93 18 127/84 (98) 93 Room Air Physical Exam: General-oriented x 3, not in distress, speaks in sentences with no effort Eyes- anicteric Neck- no JVD Lungs- clear breath sounds bilaterally, no rales/wheezes Heart- regular rhythm; no murmur, normal rate Abdomen- hypoactive bowel sounds, non distended, non tender Extremities- no pretibial edema, no calf tenderness Neuro- alert, oriented x 3; no gross focal deficits Skin- warm & dry Laboratory Results: Last 24 Hours Test 07/31/16 05:55 White Blood Count 8.79 K/uL Red Blood Count 3.97 M/uL Hemoglobin 11.9 g/dL Hematocrit 37.1 % Mean Corpuscular Volume 93.5 fL Mean Corpuscular Hemoglobin 30.0 pg Mean Corpuscular Hemoglobin Concent 32.1 g/dl RDW Standard Deviation 45.8 fL RDW Coefficient of Variation 13.4 % Platelet Count 321 K/uL Mean Platelet Volume 9.0 fL Sodium Level 142 mmol/L Potassium Level 3.3 mmol/L Chloride Level 106 mmol/L Carbon Dioxide Level 27 mmol/L Anion Gap 9.0 mmol/L Blood Urea Nitrogen 4 mg/dl Creatinine 0.72 mg/dl Est Creatinine Clear Calc Drug Dose 75.8 ml/min Estimated GFR () 101.9 Estimated GFR (Non- 87.9 BUN/Creatinine Ratio 5.9 Random Glucose 101 mg/dl Calcium Level 8.5 mg/dl Phosphorus Level 3.0 mg/dl Magnesium Level 1.9 mg/dl Assessment & Plan STATUS POST COLOSTOMY TAKE DOWN WITH PARTIAL COLECTOMY /COLO-RECTAL ANASTOMOSIS - Post operative day 3 - tolerating clears - hg stable HTN resume propranolol tomorrow resume lisinopril if BP stable DYSLIPIDEMIA - on lipitor GERD Continue with protonix DVT PROPHYLAXIS on Heparin Thank you for this consultation. We will follow the patient with you during their hospital stay. You can reach a member of the [facility] Hospitalist Team 13/09 via pager @ . Current Inpatient Medications: Current Inpatient Medications Medications (Trade) Dose Ordered Sig/Sara Route Start Time Stop Time Status Last Admin Dose Admin Potassium Chloride/Dextrose/ Sod Cl 1,000 ml @ 50 mls/hr Q20H IV 07/28/16 13:00 08/27/16 12:59 07/31/16 03:44 80 MLS/HR Hydromorphone HCl (Dilaudid Inj) 0.5 mg Q3H PRN IV 07/28/16 09:45 08/11/16 09:44 07/30/16 16:57 0.5 MG Hydromorphone HCl (Dilaudid Inj) 1 mg Q3H PRN IV 07/28/16 09:45 08/11/16 09:44 07/31/16 06:09 1 MG Heparin Sodium (Porcine) (Heparin Sq 5000 Unit/0.5ml) 5,000 unit Q12H SQ 07/29/16 08:00 08/28/16 07:59 07/31/16 08:20 5,000 UNIT Promethazine HCl 25 mg/Sodium Chloride 51 ml @ 204 mls/hr Q6H PRN IV 07/28/16 09:45 08/27/16 09:44 Pantoprazole Sodium 40 mg/ Syringe 10 ml @ 5 mls/min DAILY@11 IV 07/28/16 13:00 08/27/16 12:59 07/31/16 11:17 5 MLS/MIN Ondansetron HCl (Zofran Inj) 4 mg Q6H PRN IV 07/28/16 09:45 08/27/16 09:44 07/31/16 10:29 4 MG Promethazine HCl 12.5 mg/Sodium Chloride 50.5 ml @ 204 mls/hr Q6H PRN IV 07/28/16 12:30 08/27/16 12:29 Sumatriptan Succinate (Imitrex Tab) 25 mg Q6 PRN PO 07/29/16 13:00 08/28/16 12:59 07/31/16 04:33 25 MG Oxycodone/ Acetaminophen (Percocet 5-325mg Tab) 1 tab Q4H PRN PO 07/30/16 00:15 08/13/16 00:14 07/31/16 01:04 1 TAB Potassium Chloride (Klor-Con Tab) 20 meq BIDM PO 07/31/16 10:30 08/30/16 10:29 07/31/16 17:34 20 MEQ Propranolol HCl (Inderal Tab) 80 mg QAM PO 08/01/16 09:00 08/31/16 08:59
[2016-07-31 23:12] VITALS: BP 134/77; PULSE 91; TEMP 36.4; O2SAT 94
[2016-08-01] MEDS: OXYCODONE/ACETAMINOPHEN 5-325 TAB PO PRN ×2 (03:47→20:56)
[2016-08-01 06:51] VITALS: BP 149/84; PULSE 71; TEMP 36.4; O2SAT 95
[2016-08-01 07:13] LABS: BUN/CREATININE RATIO 6.2 (10-20); CALCIUM 8.4 mg/dl (8.5-10.1); CREATININE 0.59 mg/dl (0.60-1.20); POTASSIUM 3.5 mmol/L (3.5-5.1)
[2016-08-01] MEDS: HEPARIN SOD 5000 UNIT/0.5 ML CARP SQ SCH ×2 (07:58→20:44)
[2016-08-01] MEDS: POTASSIUM CHLORIDE 20 MEQ TABCR PO SCH ×2 (08:00→17:46)
[2016-08-01] MEDS: PROPRANOLOL HCL 80 MG TAB PO SCH (08:02)
--- NOTE | 2016-08-01 08:46 | SURGERY PROGRESS NOTE ---
DATE: 08/01/2016 SUBJECTIVE: Lavern is sitting at the side of the chair. She is quite alert, coherent this morning, much more difference than yesterday morning. She is having no issues. She seems to be tolerating a clear liquid diet without any problems. Her last vitals show a temperature of 36.4, pulse 71, respirations 19, blood pressure 149/84, O2 sats 95 on room air. I&O specially very little drainage from the Kaz drain, but we will leave it in . The urine output was 200. I&O seems to be balanced. Laboratory yesterday showed no white count. At this point, we will increase to full liquid diet. We will DC her IV fluid. I asked her about advancing her diet more and she felt reluctant to do so at this time. She is passing flatus, but although she has not had a bowel movement. Her abdomen is soft. The incision appears intact.
[2016-08-01] MEDS: PANTOprazole SOD 40 MG TAB PO SCH (10:06)
--- NOTE | 2016-08-01 14:16 | Progress Note ---
Medicine Progress Note Date & Time of Visit: Aug 01, 2016 at 14:12. Subjective states she feel improved today abdominal pain improving tolerating liquid diet (+) flatus no other symptoms Objective Last 8 Hrs Date Time Temp Pulse Resp B/P (MAP) Pulse Ox O2 Delivery O2 Flow Rate FiO2 08/01/16 07:10 Room Air 08/01/16 06:51 36.4 71 19 149/84 (105) 95 Room Air Physical Exam: General-oriented x 3, not in distress, speaks in sentences with no effort Eyes- anicteric Lungs- clear b/s bilaterally Heart- regular rhythm; no murmur, normal rate Abdomen- hypoactive bowel sounds, non distended, non tender Extremities- no pretibial edema, no calf tenderness Neuro- alert, oriented x 3; no gross focal deficits Skin- warm & dry Laboratory Results: Last 24 Hours Test 08/01/16 05:53 Sodium Level 143 mmol/L Potassium Level 3.5 mmol/L Chloride Level 107 mmol/L Carbon Dioxide Level 28 mmol/L Anion Gap 8.0 mmol/L Blood Urea Nitrogen 4 mg/dl Creatinine 0.59 mg/dl Est Creatinine Clear Calc Drug Dose 92.4 ml/min Estimated GFR () 111.5 Estimated GFR (Non- 96.2 BUN/Creatinine Ratio 6.2 Random Glucose 96 mg/dl Calcium Level 8.4 mg/dl Assessment & Plan STATUS POST COLOSTOMY TAKE DOWN WITH PARTIAL COLECTOMY /COLO-RECTAL ANASTOMOSIS - Post operative day 4 - tolerating liquid diet pain controlled - hg stable HTN resume propranolol resume lisinopril if BP stable DYSLIPIDEMIA - on lipitor GERD Continue with protonix DVT PROPHYLAXIS on Heparin Thank you for this consultation. We will follow the patient with you during their hospital stay. You can reach a member of the [facility] Hospitalist Team 13/09 via pager @ [phone]. Current Inpatient Medications: Current Inpatient Medications Medications (Trade) Dose Ordered Sig/Sara Route Start Time Stop Time Status Last Admin Dose Admin Heparin Sodium (Porcine) (Heparin Sq 5000 Unit/0.5ml) 5,000 unit Q12H SQ 07/29/16 08:00 08/28/16 07:59 08/01/16 07:58 5,000 UNIT Promethazine HCl 25 mg/Sodium Chloride 51 ml @ 204 mls/hr Q6H PRN IV 07/28/16 09:45 08/27/16 09:44 Ondansetron HCl (Zofran Inj) 4 mg Q6H PRN IV 07/28/16 09:45 08/27/16 09:44 07/31/16 10:29 4 MG Promethazine HCl 12.5 mg/Sodium Chloride 50.5 ml @ 204 mls/hr Q6H PRN IV 07/28/16 12:30 08/27/16 12:29 Sumatriptan Succinate (Imitrex Tab) 25 mg Q6 PRN PO 07/29/16 13:00 08/28/16 12:59 07/31/16 04:33 25 MG Oxycodone/ Acetaminophen (Percocet 5-325mg Tab) 1 tab Q4H PRN PO 07/30/16 00:15 08/13/16 00:14 08/01/16 03:47 1 TAB Potassium Chloride (Klor-Con Tab) 20 meq BIDM PO 07/31/16 10:30 08/30/16 10:29 08/01/16 08:00 20 MEQ Propranolol HCl (Inderal Tab) 80 mg QAM PO 08/01/16 09:00 08/31/16 08:59 08/01/16 08:02 80 MG Pantoprazole Sodium (Protonix Tab) 40 mg QAM PO 08/01/16 10:30 08/31/16 10:29 08/01/16 10:06 40 MG
[2016-08-01 14:51] VITALS: BP 128/79; PULSE 64; TEMP 36.5; O2SAT 93
[2016-08-01 23:02] VITALS: BP 101/68; PULSE 79; TEMP 36.8; O2SAT 90
--- NOTE | 2016-08-02 06:37 | Surgery Progress Note ---
Surgery Progress Note Date of Service Aug 02, 2016. Subjective + bowel movement, + flatus, + pain controlled, No nausea, No vomiting awake, alert Objective Vital Signs: Date Time Temp Pulse Resp B/P (MAP) Pulse Ox O2 Delivery O2 Flow Rate FiO2 08/02/16 00:30 Room Air 08/01/16 23:02 36.8 79 14 101/68 (79) 90 Room Air 08/01/16 16:00 Room Air 08/01/16 14:51 36.5 64 18 128/79 (95) 93 Room Air 08/01/16 07:10 Room Air 08/01/16 06:51 36.4 71 19 149/84 (105) 95 Room Air General Appearance: no apparent distress Respiratory/Chest: no respiratory distress Abdomen: normal bowel sounds, + distended Incision(s): intact, drainage (expected drainage) Laboratory Results: Results Past 24 Hours Test 08/02/16 04:44 Range/Units Assessment & Plan 08/02/16- tolerating full liquids, adv to low fiber diet, d/c atbx d/c midline gumaro, d/c planning, pt live alone 07/30/16- sips of clears- tray tomorrow, d/c ceron, NaPhos replacement decrease IV fluids, cont atbx, leave drain Dr Silva covering over weekend 07/29/16- s/p takedown colostomy, partial colectomy, colorectal anastomosis pt w/o acute chgs- ice only, cont atbx, sc heparin, leave ceron PT, check labs 07/30/16- sips of clears- tray tomorrow, d/c ceron, NaPhos replacement decrease IV fluids, cont atbx, leave drain Dr Silva covering over weekend 07/29/16- s/p takedown colostomy, partial colectomy, colorectal anastomosis pt w/o acute chgs- ice only, cont atbx, sc heparin, leave ceron PT, check labs
[2016-08-02 07:14] LABS: BUN/CREATININE RATIO 9.4 (10-20); CALCIUM 8.7 mg/dl (8.5-10.1); CREATININE 0.6 mg/dl (0.60-1.20); POTASSIUM 3.7 mmol/L (3.5-5.1)
[2016-08-02 07:56] VITALS: BP 128/76; PULSE 74; TEMP 36.7; O2SAT 93
[2016-08-02] MEDS: HEPARIN SOD 5000 UNIT/0.5 ML CARP SQ SCH ×2 (08:16→20:06)
[2016-08-02] MEDS: PANTOprazole SOD 40 MG TAB PO SCH (08:19)
[2016-08-02] MEDS: POTASSIUM CHLORIDE 20 MEQ TABCR PO SCH ×2 (08:19→18:36)
[2016-08-02] MEDS: PROPRANOLOL HCL 80 MG TAB PO SCH (09:07)
[2016-08-02] MEDS: OXYCODONE/ACETAMINOPHEN 5-325 TAB PO PRN (13:39)
[2016-08-02 15:01] VITALS: BP 132/83; PULSE 71; TEMP 36.7; O2SAT 92
--- NOTE | 2016-08-02 20:04 | Progress Note ---
Medicine Progress Note Date & Time of Visit: Aug 02, 2016 at 19:59. Subjective comfortable, laying in bed, watching TV pain on the surgical site improving daily tolerating diet, (+) BM last night, (+) flatus no chest pain, dyspnea, dizziness ambulating with no problems no other symptoms Objective Last 8 Hrs Date Time Temp Pulse Resp B/P (MAP) Pulse Ox O2 Delivery O2 Flow Rate FiO2 08/02/16 15:50 Room Air 08/02/16 15:01 36.7 71 16 132/83 (99) 92 Room Air Physical Exam: General-oriented x 3, not in distress Eyes- anicteric Lungs- clear breath sounds bilaterally, no rales/wheezing Heart- normal rate, regular rhythm; no murmurs Abdomen- normal bowel sounds, non distended, soft, non tender Extremities- no pretibial edema, no calf tenderness Neuro- alert, oriented x 3; no gross focal deficits Skin- warm & dry Laboratory Results: Last 24 Hours Test 08/02/16 06:22 Sodium Level 142 mmol/L Potassium Level 3.7 mmol/L Chloride Level 106 mmol/L Carbon Dioxide Level 28 mmol/L Anion Gap 8.0 mmol/L Blood Urea Nitrogen 6 mg/dl Creatinine 0.60 mg/dl Est Creatinine Clear Calc Drug Dose 90.9 ml/min Estimated GFR () 110.9 Estimated GFR (Non- 95.7 BUN/Creatinine Ratio 9.4 Random Glucose 89 mg/dl Calcium Level 8.7 mg/dl Assessment & Plan STATUS POST COLOSTOMY TAKE DOWN WITH PARTIAL COLECTOMY /COLO-RECTAL ANASTOMOSIS - Post operative day 5 - diet advanced to low fiber diet, tolerating well pain controlled - overall, stable post op HTN resumed Propranolol BP within acceptable range resume lisinopril if PO intake consistent, without low BP readings DYSLIPIDEMIA - on lipitor GERD Continue with protonix DVT PROPHYLAXIS on Heparin Thank you for this consultation. We will follow the patient with you during their hospital stay. You can reach a member of the [facility] Hospitalist Team 13/09 via pager @ . Current Inpatient Medications: Current Inpatient Medications Medications (Trade) Dose Ordered Sig/Sara Route Start Time Stop Time Status Last Admin Dose Admin Heparin Sodium (Porcine) (Heparin Sq 5000 Unit/0.5ml) 5,000 unit Q12H SQ 07/29/16 08:00 08/28/16 07:59 08/02/16 08:16 5,000 UNIT Promethazine HCl 25 mg/Sodium Chloride 51 ml @ 204 mls/hr Q6H PRN IV 07/28/16 09:45 08/27/16 09:44 Ondansetron HCl (Zofran Inj) 4 mg Q6H PRN IV 07/28/16 09:45 08/27/16 09:44 07/31/16 10:29 4 MG Promethazine HCl 12.5 mg/Sodium Chloride 50.5 ml @ 204 mls/hr Q6H PRN IV 07/28/16 12:30 08/27/16 12:29 Sumatriptan Succinate (Imitrex Tab) 25 mg Q6 PRN PO 07/29/16 13:00 08/28/16 12:59 07/31/16 04:33 25 MG Potassium Chloride (Klor-Con Tab) 20 meq BIDM PO 07/31/16 10:30 08/30/16 10:29 08/02/16 18:36 20 MEQ Propranolol HCl (Inderal Tab) 80 mg QAM PO 08/01/16 09:00 08/31/16 08:59 08/02/16 09:07 80 MG Pantoprazole Sodium (Protonix Tab) 40 mg QAM PO 08/01/16 10:30 08/31/16 10:29 08/02/16 08:19 40 MG Oxycodone/ Acetaminophen (Percocet 5-325mg Tab) 1 tab Q4H PRN PO 08/02/16 06:15 08/16/16 06:14 Oxycodone/ Acetaminophen (Percocet 5-325mg Tab) 2 tab Q4H PRN PO 08/02/16 06:15 08/16/16 06:14 08/02/16 13:39 2 TAB
[2016-08-02 23:05] VITALS: BP 116/72; PULSE 80; TEMP 36.7; O2SAT 93
[2016-08-03 06:18] LABS: HEMATOCRIT 37.7 % (37-47); MEAN CELL VOLUME 95.9 fL (80-100); MEAN CORPUSCULAR HEMOGLOBIN 31.6 pg (25-34); MEAN CORPUSCULAR HGB CONC 32.9 g/dl (32-36); MEAN PLATELET VOLUME 9.3 fL (7.4-10.4); PLATELET COUNT 335 K/uL (130-400); RED BLOOD COUNT 3.93 M/uL (4.2-5.4); WHITE BLOOD COUNT 7.41 K/uL (4.8-10.8)
[2016-08-03 06:53] LABS: BUN/CREATININE RATIO 20.2 (10-20); CALCIUM 8.7 mg/dl (8.5-10.1); CREATININE 0.62 mg/dl (0.60-1.20); POTASSIUM 3.7 mmol/L (3.5-5.1)
--- NOTE | 2016-08-03 07:29 | Surgery Progress Note ---
Surgery Progress Note Date of Service Aug 03, 2016. Subjective + feeling well, + bowel movement, No nausea, No vomiting Objective Vital Signs: Date Time Temp Pulse Resp B/P (MAP) Pulse Ox O2 Delivery O2 Flow Rate FiO2 08/02/16 23:08 Room Air 08/02/16 23:05 36.7 80 16 116/72 (87) 93 Room Air 08/02/16 15:50 Room Air 08/02/16 15:01 36.7 71 16 132/83 (99) 92 Room Air 08/02/16 07:56 36.7 74 18 128/76 (93) 93 Room Air General Appearance: no apparent distress Respiratory/Chest: no respiratory distress Abdomen: soft Incision(s): intact Laboratory Results: Results Past 24 Hours Test 08/03/16 05:26 Range/Units White Blood Count 7.41 4.8-10.8 K/uL Red Blood Count 3.93 4.2-5.4 M/uL Hemoglobin 12.4 12.0-16.0 g/dL Hematocrit 37.7 37-47 % Mean Corpuscular Volume 95.9 80-100 fL Mean Corpuscular Hemoglobin 31.6 25-34 pg Mean Corpuscular Hemoglobin Concent 32.9 32-36 g/dl RDW Standard Deviation 46.8 36.4-46.3 fL RDW Coefficient of Variation 13.5 11.5-14.5 % Platelet Count 335 130-400 K/uL Mean Platelet Volume 9.3 7.4-10.4 fL Sodium Level 142 136-145 mmol/L Potassium Level 3.7 3.5-5.1 mmol/L Chloride Level 105 98-107 mmol/L Carbon Dioxide Level 28 21-32 mmol/L Anion Gap 9.0 3-11 mmol/L Blood Urea Nitrogen 13 7-18 mg/dl Creatinine 0.62 0.60-1.20 mg/dl Est Creatinine Clear Calc Drug Dose 88.0 ml/min Estimated GFR () 109.7 Estimated GFR (Non- 94.6 BUN/Creatinine Ratio 20.2 10-20 Random Glucose 103 70-99 mg/dl Calcium Level 8.7 8.5-10.1 mg/dl Assessment & Plan 08/03/16- plan d/c tomorrow w/ visiting nurse- will d/c TOI drain and other gumaro today- gauze joe at [facility] f/u in office next week 08/02/16- tolerating full liquids, adv to low fiber diet, d/c atbx d/c midline gumaro, d/c planning, pt live alone 07/30/16- sips of clears- tray tomorrow, d/c ceron, NaPhos replacement decrease IV fluids, cont atbx, leave drain Dr Silva covering over weekend 07/29/16- s/p takedown colostomy, partial colectomy, colorectal anastomosis pt w/o acute chgs- ice only, cont atbx, sc heparin, leave ceron PT, check labs 08/02/16- tolerating full liquids, adv to low fiber diet, d/c atbx d/c midline gumaro, d/c planning, pt live alone 07/30/16- sips of clears- tray tomorrow, d/c ceron, NaPhos replacement decrease IV fluids, cont atbx, leave drain Dr Silva covering over weekend 07/29/16- s/p takedown colostomy, partial colectomy, colorectal anastomosis pt w/o acute chgs- ice only, cont atbx, sc heparin, leave ceron PT, check labs
[2016-08-03] MEDS ORDERED: HYDR-5688 PO (07:30)
--- NOTE | 2016-08-03 07:34 | Discharge Instructions ---
Discharge Instructions Date of Service Aug 03, 2016. Admission Reason for Admission: Colostomy, Diverticulitis Discharge Discharge Diagnosis / Problem: colostomy from diverticulitis Discharge Goals Goal(s): Decrease discomfort, Improve function, Improve disease control Activity Recommendations Activity Limitations: as noted below Lifting Limitations: no more than 25 pounds Exercise/Sports Limitations: until after follow-up appointment May Resume Sexual Activity: when tolerated Shower/Bathe: tomorrow Driving or Machine Use: one week SPECIAL CARE INSTRUCTIONS: * Cover incisions and change daily for comfort/drainage. * May use ibuprofen for pain as tolerated. * Expect some swelling and bruising. Call your doctor if: * Temperature above 101 degrees * Pain not relieved by pain medicine ordered * There is increased drainage or redness from any incision * You have any unanswered questions or concerns [phone]. FOLLOW UP VISIT: If not already scheduled, please call the office for a follow-up visit. for next week- pan and wound check OFFICE PHONE NUMBER: Dr. Clark Office . Current Hospital Diet Patient's current hospital diet: Low Fiber Diet Discharge Diet Recommended Diet: Regular Diet Procedures Procedures Performed: Colostomy Closure with partial colectomy Pending Studies Studies pending at discharge: no Medical Emergencies . Who to Call and When: Medical Emergencies: If at any time you feel your situation is an emergency, please call 911 immediately. . Non-Emergent Contact Non-Emergency issues call your: Primary Care Provider, Surgeon . "Provider Documentation" section prepared by Stephen Clark. . VTE Core Measure Inpt VTE Proph given/why not?: Unfractionated heparin SQ, SCD's
[2016-08-03 07:40] VITALS: BP 130/78; PULSE 89; TEMP 36.7; O2SAT 93
[2016-08-03] MEDS: HEPARIN SOD 5000 UNIT/0.5 ML CARP SQ SCH ×2 (07:45→20:28)
[2016-08-03] MEDS: POTASSIUM CHLORIDE 20 MEQ TABCR PO SCH ×2 (07:49→18:16)
[2016-08-03] MEDS: PANTOprazole SOD 40 MG TAB PO SCH (07:49)
[2016-08-03] MEDS: PROPRANOLOL HCL 80 MG TAB PO SCH (07:49)
[2016-08-03] MEDS: OXYCODONE/ACETAMINOPHEN 5-325 TAB PO PRN ×3 (07:51→14:03)
[2016-08-03 08:50] VITALS: O2SAT 93
[2016-08-03 16:31] VITALS: BP 123/72; PULSE 61; TEMP 36.7; O2SAT 92
--- NOTE | 2016-08-03 19:42 | Progress Note ---
Medicine Progress Note Date & Time of Visit: Aug 03, 2016 at 10:20 . Subjective Doing well postoperatively. No chest pain. No cough or dyspnea. Performing incentive spirometry. No nausea or vomiting. Passing flatus and stool. Experiencing some urinary hesitancy, no dysuria. Postop pain fairly well-controlled. Ambulating. . Objective Last 8 Hrs Date Time Temp Pulse Resp B/P (MAP) Pulse Ox O2 Delivery O2 Flow Rate FiO2 08/03/16 16:31 36.7 61 18 123/72 (89) 92 Room Air 08/03/16 16:00 Room Air Physical Exam: General- no distress Lungs- clear Heart- regular Abdomen- + BS, soft Extremities- no pretibial edema or calf tenderness Neuro- alert, oriented . Laboratory Results: Last 24 Hours Test 08/03/16 05:26 White Blood Count 7.41 K/uL Red Blood Count 3.93 M/uL Hemoglobin 12.4 g/dL Hematocrit 37.7 % Mean Corpuscular Volume 95.9 fL Mean Corpuscular Hemoglobin 31.6 pg Mean Corpuscular Hemoglobin Concent 32.9 g/dl RDW Standard Deviation 46.8 fL RDW Coefficient of Variation 13.5 % Platelet Count 335 K/uL Mean Platelet Volume 9.3 fL Sodium Level 142 mmol/L Potassium Level 3.7 mmol/L Chloride Level 105 mmol/L Carbon Dioxide Level 28 mmol/L Anion Gap 9.0 mmol/L Blood Urea Nitrogen 13 mg/dl Creatinine 0.62 mg/dl Est Creatinine Clear Calc Drug Dose 88.0 ml/min Estimated GFR () 109.7 Estimated GFR (Non- 94.6 BUN/Creatinine Ratio 20.2 Random Glucose 103 mg/dl Calcium Level 8.7 mg/dl Assessment & Plan S/P TAKEDOWN COLOSTOMY, PARTIAL COLECTOMY, COLORECTAL ANASTOMOSIS Doing well postoperatively. HYPERTENSION Blood pressure this morning 130/7 Continue propranolol. GERD Continue PPI. LEUKOCYTOSIS WBC as high as 19,860. WBC today 7410. Afebrile. No symptoms to suggest infection. VTE PROPHYLAXIS Receiving SQ heparin. Ambulating. Thank you for this consultation. We will follow the patient with you during their hospital stay. You [facility] via pager @ . You can reach me via cell @ [phone]. . Current Inpatient Medications: Current Inpatient Medications Medications (Trade) Dose Ordered Sig/Sara Route Start Time Stop Time Status Last Admin Dose Admin Heparin Sodium (Porcine) (Heparin Sq 5000 Unit/0.5ml) 5,000 unit Q12H SQ 07/29/16 08:00 08/28/16 07:59 08/03/16 07:45 5,000 UNIT Promethazine HCl 25 mg/Sodium Chloride 51 ml @ 204 mls/hr Q6H PRN IV 07/28/16 09:45 08/27/16 09:44 Ondansetron HCl (Zofran Inj) 4 mg Q6H PRN IV 07/28/16 09:45 08/27/16 09:44 07/31/16 10:29 4 MG Promethazine HCl 12.5 mg/Sodium Chloride 50.5 ml @ 204 mls/hr Q6H PRN IV 07/28/16 12:30 08/27/16 12:29 Sumatriptan Succinate (Imitrex Tab) 25 mg Q6 PRN PO 07/29/16 13:00 08/28/16 12:59 07/31/16 04:33 25 MG Potassium Chloride (Klor-Con Tab) 20 meq BIDM PO 07/31/16 10:30 08/30/16 10:29 08/03/16 07:49 20 MEQ Propranolol HCl (Inderal Tab) 80 mg QAM PO 08/01/16 09:00 08/31/16 08:59 08/03/16 07:49 80 MG Pantoprazole Sodium (Protonix Tab) 40 mg QAM PO 08/01/16 10:30 08/31/16 10:29 08/03/16 07:49 40 MG Oxycodone/ Acetaminophen (Percocet 5-325mg Tab) 1 tab Q4H PRN PO 08/02/16 06:15 08/16/16 06:14 08/03/16 10:05 1 TAB Oxycodone/ Acetaminophen (Percocet 5-325mg Tab) 2 tab Q4H PRN PO 08/02/16 06:15 08/16/16 06:14 08/03/16 14:03 2 TAB
[2016-08-03 23:05] VITALS: BP 123/77; PULSE 64; TEMP 36.5; O2SAT 93
--- NOTE | 2016-08-04 05:49 | Surgery Progress Note ---
Surgery Progress Note Date of Service Aug 04, 2016. Subjective + flatus resting comfortably, no bm and feeling bloated passing "lots of gas " Objective Vital Signs: Date Time Temp Pulse Resp B/P (MAP) Pulse Ox O2 Delivery O2 Flow Rate FiO2 08/04/16 00:00 Room Air 08/03/16 23:05 36.5 64 16 123/77 (92) 93 Room Air 08/03/16 16:31 36.7 61 18 123/72 (89) 92 Room Air 08/03/16 16:00 Room Air 08/03/16 08:50 93 Room Air 08/03/16 08:00 Room Air 08/03/16 07:40 36.7 89 12 130/78 (95) 93 Room Air General Appearance: no apparent distress Respiratory/Chest: no respiratory distress Abdomen: + distended Incision(s): intact Laboratory Results: Results Past 24 Hours Test 08/04/16 04:44 Range/Units Assessment & Plan 08/04/16- will give mineral oil and Senokot S. d/c this am visiting nurse, see in office next week 08/03/16- plan d/c tomorrow w/ visiting nurse- will d/c TOI drain and other gumaro today- gauze joe at [facility] f/u in office next week 08/02/16- tolerating full liquids, adv to low fiber diet, d/c atbx d/c midline gumaro, d/c planning, pt live alone 07/30/16- sips of clears- tray tomorrow, d/c ceron, NaPhos replacement decrease IV fluids, cont atbx, leave drain Dr Silva covering over weekend 07/29/16- s/p takedown colostomy, partial colectomy, colorectal anastomosis pt w/o acute chgs- ice only, cont atbx, sc heparin, leave ceron PT, check labs 08/03/16- plan d/c tomorrow w/ visiting nurse- will d/c TOI drain and other gumaro today- gauze joe at [facility] f/u in office next week 08/02/16- tolerating full liquids, adv to low fiber diet, d/c atbx d/c midline gumaro, d/c planning, pt live alone 07/30/16- sips of clears- tray tomorrow, d/c ceron, NaPhos replacement decrease IV fluids, cont atbx, leave drain Dr Silva covering over weekend 07/29/16- s/p takedown colostomy, partial colectomy, colorectal anastomosis pt w/o acute chgs- ice only, cont atbx, sc heparin, leave ceron PT, check labs
[2016-08-04 06:48] VITALS: BP 123/77; PULSE 64; TEMP 36.5; O2SAT 93
[2016-08-04] MEDS: HEPARIN SOD 5000 UNIT/0.5 ML CARP SQ SCH (07:14)
[2016-08-04] MEDS: PANTOprazole SOD 40 MG TAB PO SCH (07:15)
[2016-08-04] MEDS: PROPRANOLOL HCL 80 MG TAB PO SCH (07:15)
[2016-08-04] MEDS: POTASSIUM CHLORIDE 20 MEQ TABCR PO SCH (07:17)
[2016-08-04] MEDS: MINERAL OIL 30 ML UDC PO ONE ×2 (07:17→09:20)
[2016-08-04 07:31] LABS: CALCIUM 9.3 mg/dl (8.5-10.1); CREATININE 0.74 mg/dl (0.60-1.20); POTASSIUM 4.2 mmol/L (3.5-5.1)
[2016-08-04] MEDS ORDERED: DOCUSATE SODIUM/SENNA 50/8.6MG TAB PO SCH (08:00)
[2016-08-04 08:02] VITALS: BP 118/76; PULSE 85; TEMP 36.9; O2SAT 96
[2016-08-04] MEDS: OXYCODONE/ACETAMINOPHEN 5-325 TAB PO PRN (08:10)
[2016-08-04 08:33] VITALS: O2SAT 96
--- NOTE | 2016-08-06 15:38 | DISCHARGE SUMMARY ---
PRIMARY DISCHARGE DIAGNOSIS: History of Tutu's for perforated diverticulitis. SECONDARY DISCHARGE DIAGNOSES: 1. Hypertension. 2. Hyperlipidemia. 3. Gastroesophageal reflux disease. 4. Mitral valve prolapse. PROCEDURE PERFORMED: Colostomy takedown with partial colectomy and colorectal anastomosis. CONSULTATIONS: [facility] hospitalist to assist with medical management. HOSPITAL COURSE: The patient is a 66-year-old female status post Tutu procedure for perforated diverticulitis, now admitted through same day and taken to the operating room for colostomy takedown. The procedure was well tolerated. She was transferred to the surgical floor. SubQ heparin was used for DVT prophylaxis. Hospitalist was consulted routinely to assist with medical management, primarily hypertension. She had some returning bowel function beginning postoperative day 2. She was started on clear liquids day 3. She was able to tolerate advancing diet over the next 2 days. She was moving her bowels by day 5 and was able to tolerate a low fiber diet. Ino drain was removed from the incision and the openings were packed loosely with gauze. TOI drain was removed on day 6. She was tolerating oral analgesics. She was stable for discharge home with home health on day 7. DISCHARGE INSTRUCTIONS: Discharge home. She will have home health to assist in wound care. Follow up with Dr. Clark's office next week for staple removal. DISCHARGE MEDICATIONS: Brandenburg 1-2 tablets every 6 hours as needed. Resume home medications, Excedrin Extra Strength 1 tablet every 4 hours as needed, Lipitor 40 mg daily, docusate 100 mg p.o. b.i.d., omega 3 supplement, Flonase nasal spray 2 sprays daily, Zestril 2.5 mg daily, Protonix 40 mg daily, Inderal 80 mg daily, Senokot 8.6 mg daily as needed. She can resume Percocet and/or Tylenol once the Brandenburg is completed. [facility]
== END 2016-08-04 09:56 | disposition home health service (06) | DRG 331 ==
LOC: C.ACU 05:14 → ENRESERV 10:34 → C.MSW 11:52
PROVIDERS: ADMIT Surgery; ATTEND Surgery
PROC: 0DJD8ZZ Inspection of Lower Intestinal Tract, Via Natural or Artificial Opening Endoscopic (ICD-10-PCS; 2016-07-27)
PROC: 0DBK0ZZ Excision of Ascending Colon, Open Approach (ICD-10-PCS; principal; 2016-07-28 07:00)
PROC: 0WQF0ZZ Repair Abdominal Wall, Open Approach (ICD-10-PCS; principal; 2016-07-28 07:00)
PROC: 0DQM0ZZ Repair Descending Colon, Open Approach (ICD-10-PCS; principal; 2016-07-28 07:00)
DX: Z43.3 Encounter for attention to colostomy (principal); E78.5 Hyperlipidemia, unspecified; I10 Essential (primary) hypertension; K21.9 Gastro-esophageal reflux disease without esophagitis; Z79.899 Other long term (current) drug therapy; Z87.891 Personal history of nicotine dependence; K57.30 Diverticulosis of large intestine without perforation or abscess without bleeding; K62.89 Other specified diseases of anus and rectum; E78.00 Pure hypercholesterolemia, unspecified; Z90.49 Acquired absence of other specified parts of digestive tract

== ENCOUNTER 2016-09-10 07:31 | Emergency (ER) | payer OTHER ==
[~2016-09-10] VITALS: Ht 160 cm; Wt 67.2 kg
[~2016-09-10 07:31] MED LIST changes: +ASPI-391 PO; +HYDR-5688 PO
[2016-09-10 07:34] VITALS: TEMP 36.7; Ht 160 cm; Wt 67.2 kg
[2016-09-10] MEDS ORDERED: HYDROmorphone INJ 0.5 MG/0.5 ML SYR IV STA (07:35)
[2016-09-10] MEDS ORDERED: METOCLOPRAMIDE HCL INJ 5 MG/ML 2 ML VIAL IV STA (07:35)
[2016-09-10 07:55] LABS: BASO % 0.4 %; BASO ABS # 0.03 K/uL (0-0.2); COMPLETE YES; EOS % 2.2 %; HEMATOCRIT 36.6 % (37-47); IG% 0.4 %; LYMPH % 27.9 %; LYMPH ABS # 2.04 K/uL (1.2-3.4); MEAN CELL VOLUME 94.6 fL (80-100); MEAN CORPUSCULAR HGB CONC 33.9 g/dl (32-36); MEAN PLATELET VOLUME 8.9 fL (7.4-10.4); MONO % 8.4 %; NEUT % 60.7 %; PLATELET COUNT 314 K/uL (130-400); RED BLOOD COUNT 3.87 M/uL (4.2-5.4)
[2016-09-10] MEDS ORDERED: OPTIRAY 320 IV PRN (08:00)
[2016-09-10 08:11] LABS: ISTAT CREATININE 0.5 mg/dl (0.6-1.3); ISTAT HEMOGLOBIN 12.2 g/dl (12.0-16.0); ISTAT IONIZED CALCIUM 1.2 mmol/l (1.12-1.32)
[2016-09-10 08:12] LABS: BUN/CREATININE RATIO 17.5 (10-20); CALCIUM 9.1 mg/dl (8.5-10.1); CREATININE 0.69 mg/dl (0.60-1.20); POTASSIUM 3.7 mmol/L (3.5-5.1)
--- NOTE | 2016-09-10 08:21 | EMERGENCY ROOM VISIT NOTE ---
History Report prepared by Ney: Lisa López Under the Supervision of: Dr. Barry Angel M.D. First contact with patient: 07:21 Chief Complaint: ABDOMINAL PAIN Stated Complaint: ABD PAIN Nursing Triage Summary: Pt arrives ALS from home with LLQ pain that started yesterday Pt had colostomy (that was placed from diverticulitis) reversed on 07/28 History of Present Illness The patient is a 66 year old female who presents to the Emergency Room with complaints of constant left lower quadrant abdominal pain that started yesterday. The pain worsened this morning. The patient came to the ED via ambulance from home. She describes the pain as a sharp and stabbing pain. The patient states that the pain feels similar to when she experienced diverticulitis in the past. She rates her discomfort as a 9/10 in severity. The patient took Tylenol but it offered minimal relief of her pain. She is also experiencing nausea. The patient states that she has been unable to eat or drink since yesterday The patient's bowel movements have been normal. She denies fevers, chills, hematochezia, melena, dysuria, hematuria, and abnormal vaginal bleeding or discharge. The patient had a colostomy placed in March and it was reversed in July secondary to perforated diverticulitis. The patient has a history of a cholecystectomy and appendectomy. She denies any recent sick contacts. Source of History: patient Onset: yesterday Position: abdomen (LLQ) Symptom Intensity: 9/10 Quality: sharp, stabbing Timing: constant, worsening Associated Symptoms: + nausea, No fevers, No chills, No melena, No hematochezia, No urinary symptoms Note: no abnormal vaginal bleeding or discharge Review of Systems See HPI for pertinent positives & negatives. A total of 10 systems reviewed and were otherwise negative. Past Medical & Surgical Medical Problems: (1) colostomy closure (2) 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 (3) Diverticulitis (4) Dyslipidemia (5) GERD (gastroesophageal reflux disease) (6) HTN (hypertension) (7) Mitral valve prolapse Surgical Problems: (1) History of appendectomy (2) History of cholecystectomy (3) History of gynecologic surgery (4) History of mandibular surgery (5) History of tubal ligation Family History Cancer Diabetes mellitus Social History Smoking Status: Never Smoker Drug Use: none Marital Status: single Housing Status: lives alone Current/Historical Medications Scheduled Acetaminophen Tab (Tylenol), 650 MG PO PRN Atorvastatin (Lipitor), 40 MG PO HS Ciprofloxacin Hcl (Cipro), 1 TAB PO BID Docusate Sodium (Stool Softener), 1 CAP PO BID Fish Oil ([place]-3), 1 CAP PO BID Fluticasone Propionate (Nasal) (Flonase Allergy Relief), 2 SPRAY ZOILA QAM Lisinopril (Zestril), 1 TAB PO QAM Metronidazole (Flagyl), 500 MG PO BID Pantoprazole (Protonix), 40 MG PO QAM Propranolol (Inderal), 80 MG PO QAM Scheduled PRN Wbncqwk-Jqezlfpbmrtzp-Ogcfjarw (Excedrin Extra Strength), 1 TAB PO Q4H PRN for Pain Oxycodone/Acetaminophen 5MG/325MG (Percocet 5MG/325MG), 1-2 TAB PO Q4H PRN for Pain Allergies Coded Allergies: Morphine (Verified Allergy, Severe, ANAPHYLAXIS, CAN TOLERATE HYDROMORPHONE, 07/28/16) Diphenhydramine (Verified Allergy, Intermediate, itching, 07/16/16) Hydrocodone (Verified Adverse Reaction, Intermediate, GI SYMPTOMS, 07/16/16 ) Physical Exam Vital Signs Date Time Temp Pulse Resp B/P (MAP) Pulse Ox O2 Delivery O2 Flow Rate FiO2 09/10/16 11:22 64 18 152/83 98 09/10/16 10:32 62 18 158/88 98 09/10/16 09:52 63 18 156/79 96 Room Air 09/10/16 09:45 72 09/10/16 07:40 72 09/10/16 07:34 36.7 75 20 167/94 92 Room Air Physical Exam GENERAL: Patient is a healthy-appearing well-nourished female HEAD: Normocephalic atraumatic EYES: Ocular movements intact pupils equal and react to light OROPHARYNX mucous membranes are moist no exudates present no erythema or edema present NECK: Supple no nuchal rigidity CHEST: Good equal expansion LUNGS: Clear and equal to auscultation CARDIAC: Normal S1 and S2 ABDOMEN: Soft exquisitely tender in left lower quadrant no guarding BACK: No CVA tenderness EXTREMITIES: No pain upon palpation normal muscle strength in all groups no clubbing cyanosis or edema NEURO: Patient is following commands and answering questions appropriately. Alert and oriented x3 Cranial Nerves 2-12 grossly intact Medical Decision & Procedures ER Provider Diagnostic Interpretation: CT results as stated below per my review and radiologist interpretation: ABD/PELVIS IV CONTRAST ONLY FINDINGS: Lung bases are clear. Liver is uniform. Increased biliary ductal distention compared to the prior study post cholecystectomy. Extra hepatic common bile duct has maximum diameters of 12 mm. No distention of the pancreatic duct. Pancreas appears to be uniform. Kidneys are negative for hydronephrosis. The abdominal bowel pattern is nonobstructive. There has been an appendectomy. No evidence for diverticulitis. 2.5 cm left ovarian cyst. Bladder is midline. Postoperative changes are noted to the anterior abdominal wall. IMPRESSION: 1. Scattered colonic diverticulosis with no evidence for acute diverticulitis. 2. Prior appendectomy and cholecystectomy. 3. 2.5 cm left ovarian cyst. 4. Increased biliary ductal prominence compared to the prior study raising the possibility of an obstructing process of the distal common duct. MRCP is suggested. The above report was generated using voice recognition software. It may contain grammatical, syntax or spelling errors. Electronically signed by: Aurelio Rodriguez M.D. 09/10/2016 9:25 AM Dictated Date/Time: 09/10/2016 9:19 AM Laboratory Results 09/10/16 07:45 Red Blood Count 3.87, Mean Corpuscular Volume 94.6, Mean Corpuscular Hemoglobin 32.0, Mean Corpuscular Hemoglobin Concent 33.9, Mean Platelet Volume 8.9, Neutrophils (%) (Auto) 60.7, Lymphocytes (%) (Auto) 27.9, Monocytes (%) (Auto) 8.4, Eosinophils (%) (Auto) 2.2, Basophils (%) (Auto) 0.4, Neutrophils # (Auto) 4.43, Lymphocytes # (Auto) 2.04, Monocytes # (Auto) 0.61, Eosinophils # (Auto) 0.16, Basophils # (Auto) 0.03 09/10/16 07:45 Test 09/10/16 07:45 09/10/16 07:49 09/10/16 09:50 White Blood Count 7.30 K/uL (4.8-10.8) Red Blood Count 3.87 M/uL (4.2-5.4) Hemoglobin 12.4 g/dL (12.0-16.0) Hematocrit 36.6 % (37-47) Mean Corpuscular Volume 94.6 fL (80-100) Mean Corpuscular Hemoglobin 32.0 pg (25-34) Mean Corpuscular Hemoglobin Concent 33.9 g/dl (32-36) Platelet Count 314 K/uL (130-400) Mean Platelet Volume 8.9 fL (7.4-10.4) Neutrophils (%) (Auto) 60.7 % Lymphocytes (%) (Auto) 27.9 % Monocytes (%) (Auto) 8.4 % Eosinophils (%) (Auto) 2.2 % Basophils (%) (Auto) 0.4 % Neutrophils # (Auto) 4.43 K/uL (1.4-6.5) Lymphocytes # (Auto) 2.04 K/uL (1.2-3.4) Monocytes # (Auto) 0.61 K/uL (0.11-0.59) Eosinophils # (Auto) 0.16 K/uL (0-0.5) Basophils # (Auto) 0.03 K/uL (0-0.2) RDW Standard Deviation 44.5 fL (36.4-46.3) RDW Coefficient of Variation 12.9 % (11.5-14.5) Immature Granulocyte % (Auto) 0.4 % Immature Granulocyte # (Auto) 0.03 K/uL (0.00-0.02) Est Creatinine Clear Calc Drug Dose 74.8 ml/min Estimated GFR () 105.9 Estimated GFR (Non- 91.4 BUN/Creatinine Ratio 17.5 (10-20) Calcium Level 9.1 mg/dl (8.5-10.1) Total Bilirubin 0.5 mg/dl (0.2-1) Direct Bilirubin 0.1 mg/dl (0-0.2) Aspartate Amino Transf (AST/SGOT) 15 U/L (15-37) Alanine Aminotransferase (ALT/SGPT) 28 U/L (12-78) Alkaline Phosphatase 98 U/L (45-117) Total Protein 6.6 gm/dl (6.4-8.2) Albumin 3.5 gm/dl (3.4-5.0) Lipase 156 U/L (73-393) Bedside Hemoglobin 12.2 g/dl (12.0-16.0) Bedside Hematocrit 36 % (37-47) Bedside Sodium 142 mEq/L (135-144) Bedside Potassium 3.7 mEq/L (3.3-5.0) Bedside Chloride 104 mEq/L (101-112) Bedside Total CO2 23 mEq/l (24-31) Anion Gap 19.0 mmol/L (16-25) Bedside Blood Urea Nitrogen 11 mg/dl (7-18) Bedside Creatinine 0.5 mg/dl (0.6-1.3) Bedside Glucose (other) 105 mg/dl (70-99) Bedside Ionized Calcium ([place]akila) 1.20 mmol/l (1.12-1.32) Urine Color YELLOW Urine Appearance CLEAR (CLEAR) Urine pH 5.5 (4.5-7.5) Urine Specific [place] > 1.045 (1.000-1.030) Urine Protein NEG (NEG) Urine Glucose (UA) NEG (NEG) Urine Ketones NEG (NEG) Urine Occult Blood TRACE (NEG) Urine Nitrite POS (NEG) Urine Bilirubin NEG (NEG) Urine Urobilinogen NEG (NEG) Urine Leukocyte Esterase NEG (NEG) Urine WBC (Auto) 1-5 /hpf (0-5) Urine RBC (Auto) 0-4 /hpf (0-4) Urine Hyaline Casts (Auto) 1-5 /lpf (0-5) Urine Epithelial Cells (Auto) 10-20 /lpf (0-5) Urine Bacteria (Auto) 4+ (NEG) Labs reviewed by ED physician. Medications Administered Medications (Trade) Dose Ordered Sig/Sara Route Start Time Stop Time Status Last Admin Dose Admin Hydromorphone HCl (Dilaudid Inj) 0.5 mg NOW STAT IV 09/10/16 07:35 09/10/16 07:36 DC 09/10/16 07:53 0.5 MG Metoclopramide HCl (Reglan Inj) 10 mg NOW STAT IV 09/10/16 07:35 09/10/16 07:36 DC 09/10/16 07:52 10 MG Ciprofloxacin (Cipro Tab) 500 mg NOW STAT PO 09/10/16 10:23 09/10/16 10:24 DC 09/10/16 10:32 500 MG Metronidazole (Flagyl Tab) 500 mg NOW STAT PO 09/10/16 10:23 09/10/16 10:24 DC 09/10/16 10:31 500 MG ED Course 0727: The medical student evaluated the patient at this time. We discussed her findings and potential treatment plans. 0735: Ordered Reglan 10 mg IV, Dilaudid 0.5 mg IV 0812: Past medical records reviewed. The patient was evaluated in room A2. A complete history and physical examination was performed. 1021: I discussed the patient's case with Dr. Geoff LUBIN. He thinks the patient is well enough to go home. He recommended repeating liver enzymes in 1 week. 1023: Ordered Flagyl Tab 500 mg PO, Cipro Tab 500 mg PO 1024: Upon reexamination the patient is doing well. I discussed results and treatment plan with the patient. She verbalizes agreement and understanding. The patient is ready for discharge. Medical Decision Differential diagnosis: Etiologies such as appendicitis, diverticulitis, PUD, biliary pathology, UTI, pancreatitis, obstruction, mesenteric ischemia, aortic pathology, infections, inflammatory bowel disease, renal colic, as well as others were entertained. This is a 66-year-old female who presents emergency department complaining of left lower quadrant abdominal pain. Serial abdominal examinations were performed on the patient in the emergency department and at no time did the patient exhibited a surgical abdomen however the patient has remained tender in the left lower quadrant area and she does have a history of diverticulitis in this area however there is no evidence of diverticulitis on the CAT scan. In addition the patient does not have an elevation in her white blood count cell count. I did discuss the case with gastroenterology liver issues however I feel that the patient can safely follow-up. I will start the patient on antibiotics in case this is an early diverticulitis however I also recommended the patient try a MiraLAX cleanout she does appear to be constipated. Medication Reconcilliation Current Medication List: was personally reviewed by me Blood Pressure Screening Patient's blood pressure: Elevated blood pressure Blood pressure disposition: Referred to PCP Consults Time Called: 928 Consulting Physician: Dr. Geoff LUBIN Returned Call: 1021 I discussed the patient's case with Dr. Geoff LUBIN. He thinks the patient is well enough to go home. He recommended repeating liver enzymes in 1 week. Impression Primary Impression: Abdominal pain, left lower quadrant Scribe Attestation The scribe's documentation has been prepared under my direction and personally reviewed by me in its entirety. I confirm that the note above accurately reflects all work, treatment, procedures, and medical decision making performed by me. Departure Information Dispostion Home / Self-Care Prescriptions Oxycodone/Acetaminophen 5MG/325MG (PERCOCET 5MG/325MG) Tab 1-2 TAB PO Q4H Y for Pain, #14 TAB Prov: Barry Angel MD 09/10/16 Metronidazole (Flagyl) 500 Mg Tab 500 MG PO BID, #20 TAB Prov: Barry Angel MD 09/10/16 Ciprofloxacin Hcl (CIPRO) 500 Mg Tab 1 TAB PO BID for 10 Days, #20 TAB Prov: Barry Angel MD 09/10/16 Referrals Tricia Turk D.O. (PCP) Forms HOME CARE DOCUMENTATION FORM, IMPORTANT VISIT INFORMATION Patient Instructions ED Abdominal Pain Unkn Cause, ED Constipation, ED Diet Clear Liquid, My [facility] Additional Instructions Repeat "liver enzymes" in one week with PCP Take 10 oz bottle of miralax; Add to 16 oz of gatorade Drink continuously until moving creamy stools Clear liquid diet for next 48 hours Return if you develop fevers or pain worsens Clear liquid diet for the next 48 hours You were found to have an elevated blood pressure today (>120 sytolic or >90 diastolic). Per medicare guidelines, you need to follow up with this blood pressure screening with your Primary Care Physician (PCP). For a new PCP call [phone]. You received narcotic or benzodiazepene medication while in the emergency room today. Do not drive, operate heavy machinery, or drink alcohol under the influence of this medication. Take 600 mg Ibuprofen every 6 hours Take Percocet for breakthrough pain You have been examined and treated today on an emergency basis only. This is not a substitute for, or an effort to provide, complete comprehensive medical care. It is impossible to recognize and treat all injuries or illnesses in a single emergency department visit. It is therefore important that you follow up closely with Dr Turk. Call as soon as possible for an appointment. Thank you for your time and consideration. I look forward to speaking with you again soon. Please don't hesitate to call us if you have any questions.
--- NOTE | 2016-09-10 09:26 | DIAGNOSTIC IMAGING REPORT ---
ABD/PELVIS IV CONTRAST ONLY CT DOSE: 657.07 mGycm HISTORY: Pain Pt c/o LLQ abd pain TECHNIQUE: Multiaxial CT images of the abdomen and pelvis were performed following the use of intravenous contrast. A dose lowering technique was utilized adhering to the principles of ALARA. COMPARISON STUDY: 04/14/2016 FINDINGS: Lung bases are clear. Liver is uniform. Increased biliary ductal distention compared to the prior study post cholecystectomy. Extra hepatic common bile duct has maximum diameters of 12 mm. No distention of the pancreatic duct. Pancreas appears to be uniform. Kidneys are negative for hydronephrosis. The abdominal bowel pattern is nonobstructive. There has been an appendectomy. No evidence for diverticulitis. 2.5 cm left ovarian cyst. Bladder is midline. Postoperative changes are noted to the anterior abdominal wall. IMPRESSION: 1. Scattered colonic diverticulosis with no evidence for acute diverticulitis. 2. Prior appendectomy and cholecystectomy. 3. 2.5 cm left ovarian cyst. 4. Increased biliary ductal prominence compared to the prior study raising the possibility of an obstructing process of the distal common duct. MRCP is suggested. The above report was generated using voice recognition software. It may contain grammatical, syntax or spelling errors. Electronically signed by: Aurelio Rodriguez M.D. 09/10/2016 9:25 AM Dictated Date/Time: 09/10/2016 9:19 AM
[2016-09-10 10:11] LABS: URINE APPEARANCE CLEAR (CLEAR); URINE BILIRUBIN NEG (NEG); URINE COLOR YELLOW; URINE NITRITE POS (NEG); URINE PH 5.5 (4.5-7.5); URINE SPECIFIC GRAVITY > 1.045 (1.000-1.030); UROBILINOGEN NEG (NEG)
[2016-09-10 10:14] LABS: MANUAL MICROSCOPIC REQUIRED? NO; REVIEW REQ? NO
[2016-09-10] MEDS ORDERED: CIPROFLOXACIN 500 MG TAB PO STA (10:23)
[2016-09-10] MEDS ORDERED: METRONIDAZOLE 250 MG TAB PO STA (10:23)
[2016-09-10] MEDS ORDERED: OXYC-57 PO (10:31)
[2016-09-10] MEDS ORDERED: METR-163 PO (10:31)
[2016-09-10] MEDS ORDERED: CIPR-255 PO (10:31)
[2016-09-10 11:22] VITALS: BP 152/83; PULSE 64; O2SAT 98
== END 2016-09-10 11:23 | disposition home or self-care (01) ==
LOC: EDBD 07:31 → C.EDA 07:33
DX: R10.32 Left lower quadrant pain (principal); Z90.49 Acquired absence of other specified parts of digestive tract; E78.5 Hyperlipidemia, unspecified; K21.9 Gastro-esophageal reflux disease without esophagitis; I10 Essential (primary) hypertension; I34.1 Nonrheumatic mitral (valve) prolapse; Z98.51 Tubal ligation status; Z80.9 Family history of malignant neoplasm, unspecified; Z83.3 Family history of diabetes mellitus; Z79.899 Other long term (current) drug therapy

== ENCOUNTER → 2016-09-28 | Outpatient (CLI) | payer OTHER ==
[~2016-09-28] MED LIST changes: +CIPR-255 PO; -HYDR-5688 PO; +METR-163 PO; -SENN-61 PO
--- NOTE | 2016-09-28 13:10 | DIAGNOSTIC IMAGING REPORT ---
CT OF THE CHEST WITHOUT IV CONTRAST CLINICAL HISTORY: Chronic cough. Interstitial lung disease. Lung nodules. Shortness of breath. COMPARISON STUDY: Chest radiograph April 15, [address] August 28, 2015. CT DOSE: 273.60 mGy.cm TECHNIQUE: Axial images of the chest were obtained without IV contrast. Images were reviewed in the axial, sagittal, and coronal planes. IV contrast was not administered for this examination. A dose lowering technique was utilized adhering to the principles of ALARA. FINDINGS: No enlarged axillary, mediastinal or hilar lymph nodes are present. The size pf the heart is normal. There is no pericardial effusion. Central airways are patent. There is no consolidation to suggest pneumonia. Scattered groundglass opacities suggest atelectasis. Several subpleural nodules are unchanged since CT of January 02, 2015 and are likely benign. These include a 5 mm left lower lobe nodule shown image 170 301 and a 3 mm right middle lobe nodule shown on image 156. There are no new pulmonary nodules. No pneumothorax or pleural effusion is present. Bony thorax is unremarkable. Biliary ductal dilatation is unchanged since earlier exams and likely related to cholecystectomy. IMPRESSION: 1. No change in several tiny subpleural nodules since CT of January 02, 2015. These are likely benign. 2. Scattered groundglass opacities. Atelectasis is favored although a mild infectious process within the right upper lobe would be difficult to exclude. 3. No CT evidence of interstitial lung disease. Electronically signed by: Ilan Ceballos M.D. 09/28/2016 1:09 PM Dictated Date/Time: 09/28/2016 9:46 AM
== END | disposition home or self-care (01) ==
LOC: C.CTS 09:34
PROVIDERS: ATTEND Internal Medicine Critical Care Medicine
DX: R05 Cough (principal); J44.9 Chronic obstructive pulmonary disease, unspecified; R91.8 Other nonspecific abnormal finding of lung field

== ENCOUNTER → 2017-01-17 | Outpatient (CLI) | payer OTHER ==
--- NOTE | 2017-01-17 17:04 | DIAGNOSTIC IMAGING REPORT ---
(CHEST) THORAX WITHOUT CT DOSE: 344.59 mGycm HISTORY: R91.8 Lung [id number] COPD, moderate TECHNIQUE: Multiaxial CT images of the chest were performed without contrast. A dose lowering technique was utilized adhering to the principles of ALARA. COMPARISON: Chest CT 09/28/2016. FINDINGS: The central airways are patent. No pleural effusions. No pneumothorax. Stable 4 mm subpleural nodule within the right lower lobe on image 180. Stable 4 mm nodule within the right lower lobe on image 131. Stable tiny accessory bronchus seen extending medially from the bronchus intermedius which extends to a small hypoplastic accessory lobe. This is of doubtful clinical significance. No new pulmonary nodules. Stable 4 mm subpleural nodule within the left lower lobe on image 185. No suspicious lytic or blastic osseous lesions. Cholecystectomy. No hepatic or splenic masses. The adrenal glands are unremarkable. No mediastinal or hilar lymphadenopathy. Normal caliber thoracic aorta. The heart is normal in size. IMPRESSION: 1. Stable subcentimeter pulmonary nodules with the largest measuring 4 mm. These are likely benign. 2. Groundglass densities seen on the prior study have resolved. No new focal lung consolidations. Electronically signed by: Chau Banks M.D. 01/17/2017 5:03 PM Dictated Date/Time: 01/17/2017 4:57 PM
== END | disposition home or self-care (01) ==
LOC: C.CTS 14:54
PROVIDERS: ATTEND Internal Medicine Critical Care Medicine
DX: J44.9 Chronic obstructive pulmonary disease, unspecified (principal); R91.8 Other nonspecific abnormal finding of lung field

== ENCOUNTER 2019-02-09 22:07 | Inpatient (IN) ==
[2019-02-09] MEDS ORDERED: fentaNYL citrate 100 MCG/2 ML VIAL ONE (22:17)
[2019-02-09] MEDS ORDERED: KETOROLAC TROMETHAMINE 15 MG/ML VIAL IV STA (22:22)
[2019-02-09] MEDS ORDERED: fentaNYL citrate 100 MCG/2 ML VIAL IV STA (22:22)
[2019-02-09] MEDS ORDERED: SODIUM CHLORIDE 0.9% 500 ML IV SCH (22:30)
[2019-02-09 22:51] LABS: Basophils # (auto) 0.02 K/uL (0-0.2); Basophils % (auto) 0.2 %; Eosinophils # (auto) 0.06 K/uL (0-0.5); Eosinophils % (auto) 0.6 %; Hematocrit (blood only) 40.7 % (37-47); Hemoglobin 13.7 g/dL (12.0-16.0); Immature Granulocytes # (auto) 0.03 K/uL (0.00-0.02); Immature Granulocytes % (auto) 0.3 %; Lymphocytes # (auto) 2.94 K/uL (1.2-3.4); Lymphocytes % (auto) 29.8 %; Mean Corpuscular Hemoglobin 32.5 pg (25-34); Mean Corpuscular Hgb Conc 33.7 g/dL (32-36); Mean Corpuscular Volume 96.4 fL (80-100); Mean Platelet Volume 9.3 fL (7.4-10.4); Monocytes # (auto) 1.06 K/uL (0.11-0.59); Monocytes % (auto) 10.8 %; Neutrophils # (auto) 5.74 K/uL (1.4-6.5); Neutrophils % (auto) 58.3 %; Platelet Count 379 K/uL (130-400); Red Blood Count 4.22 M/uL (4.2-5.4); White Blood Count 9.85 K/uL (4.8-10.8)
[2019-02-09 23:15] LABS: BUN Creatinine Ratio 39.5 (10-20); Calcium 9.4 mg/dl (8.5-10.1); Est GFR (African American) 103.2; Potassium 3.7 mmol/L (3.5-5.1)
[2019-02-10] MEDS ORDERED: ONDANSETRON INJ 2 MG/ML 2 ML VIAL IV STA (00:25)
[2019-02-10] MEDS ORDERED: LORazepam 0.25 MG/0.5 ML VIAL IV STA (00:25)
--- NOTE | 2019-02-10 00:40 | Emergency Department Note ---
Entered by Michelle Lovelace acting as a scribe for Elfego Estrada DO History of Present Illness General Chief complaint: Back Injury/Pain Stated complaint: LOWER BACK PAIN, FALL Source: patient History of Present Illness Onset (ago): week(s) (1) Location: back Radiation: extremity (back of right leg ) and other (hips) Pain Consistency: + constant Quality: + sharp Associated symptoms: + denies other symptoms (numbness in groin, pain with urination and bowel movements); no weakness The patient is a 69 year old female who presents to the Emergency Room with complaints of constant sharp lower back pain beginning one week ago. The patient reports the pain radiates into her hips and the back of her right leg stopping at the knee. The patient denies weakness in her legs, numbness in her groin, and pain with urination and her bowel movements. The patient states she has been helping her handicapped friend out for the past week. She notes her friend is unable to get around making her a heavy weight to lift while caring for her. She denies blood thinners and a personal history of cancer. Home Medications Home Medications Medication Instructions Recorded Confirmed Type atorvastatin 40 mg PO QPM 06/22/18 02/09/19 History docusate sodium [Colace] 100 mg PO BID 06/22/18 02/09/19 History lisinopril 2.5 mg PO QAM 06/22/18 02/09/19 History pantoprazole [Protonix] 40 mg PO QAM 06/22/18 02/09/19 History propranolol 80 mg PO QAM 06/22/18 02/09/19 History krill oil 500 mg capsule 1 cap PO .Two in the morning a cap 10/13/18 02/09/19 History sffqgim-smxehovxygpsp-zlnhatak 1 tab PO Q6H PRN 02/09/19 02/09/19 History [Excedrin Migraine] methocarbamol 500 mg PO BID PRN 02/09/19 02/09/19 History prednisone 20 mg PO BID 02/09/19 02/09/19 History Allergies Allergy/AdvReac Type Severity Reaction Status Date / Time acetaminophen [From Vicodin] Allergy Severe Verified 10/16/18 17:37 morphine Allergy Severe Anaphylaxis Verified 08/05/18 18:37 animal dander Allergy Intermediate Itchy,watery Verified 08/05/18 18:38 eyes/sneezing diphenhydramine Allergy Intermediate itching Verified 08/05/18 18:37 house dust Allergy Intermediate Itchy,watery Verified 08/05/18 18:37 eyes/sneezing hydrocodone AdvReac Intermediate GI SYMPTOMS Verified 08/05/18 18:37 Past Med/Surg History Medical History 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 Diverticulitis (Chronic) Dyslipidemia (Chronic) GERD (gastroesophageal reflux disease) (Chronic) GERD (gastroesophageal reflux disease) HTN (hypertension) (Chronic) Hypertension Mitral valve prolapse (Chronic) Surgical History History of appendectomy (Resolved) History of cholecystectomy (Resolved) History of gynecologic surgery (Resolved) "surgical repair for uterine and bladder prolapse" History of mandibular surgery (Resolved) History of tubal ligation (Resolved) Family History Other Cancer Diabetes Social History Preferred Language: Malay Feels Safe at Home: Yes Smoking Status: Former smoker Review of Systems See HPI for pertinent positives & negatives. and A total of 10 systems reviewed and were otherwise negative Physical Exam Vital Signs Vital Signs - 24 hr 02/09/19 22:08 02/09/19 22:43 02/09/19 22:57 Temperature 36.5 C Temperature Source Oral Pulse Rate 80 71 Pulse Rate [Left] 82 Pulse Rate from SpO2 Sensor 71 Pulse Rhythm [Left] Regular Respiratory Rate 22 23 17 Respiratory Effort / Characteristics Non-Labored Non-Labored Respiratory Depth Normal Normal Respiratory Pattern Regular Regular Blood Pressure 135/63 131/80 Blood Pressure [Left Arm] 131/80 Blood Pressure Mean 87 103 Blood Pressure Mean [Left Arm] 97 Pulse Oximetry 93 97 96 Oxygen Delivery Method Room Air Room Air Oxygen Flow Rate Sepsis Recent Fever Within 48 Hours No Sepsis New/Unexplained Change in Mental Status No Sepsis Action Taken by Nursing No Action Required 02/09/19 23:00 02/09/19 23:08 02/09/19 23:10 Temperature Temperature Source Pulse Rate 76 Pulse Rate [Left] 81 Pulse Rate from SpO2 Sensor 77 Pulse Rhythm [Left] Respiratory Rate 24 20 Respiratory Effort / Characteristics Non-Labored Respiratory Depth Normal Respiratory Pattern Regular Blood Pressure 131/81 Blood Pressure [Left Arm] 131/81 Blood Pressure Mean 91 Blood Pressure Mean [Left Arm] 97 Pulse Oximetry 94 93 95 Oxygen Delivery Method Nasal Cannula Nasal Cannula Oxygen Flow Rate 2 2 Sepsis Recent Fever Within 48 Hours Sepsis New/Unexplained Change in Mental Status Sepsis Action Taken by Nursing 02/09/19 23:30 02/10/19 00:00 02/10/19 00:31 Temperature Temperature Source Pulse Rate 64 63 63 Pulse Rate [Left] Pulse Rate from SpO2 Sensor 66 67 64 Pulse Rhythm [Left] Respiratory Rate 16 14 17 Respiratory Effort / Characteristics Respiratory Depth Respiratory Pattern Blood Pressure 142/80 H 149/82 H 142/86 H Blood Pressure [Left Arm] Blood Pressure Mean 110 90 95 Blood Pressure Mean [Left Arm] Pulse Oximetry 98 99 98 Oxygen Delivery Method Oxygen Flow Rate Sepsis Recent Fever Within 48 Hours Sepsis New/Unexplained Change in Mental Status Sepsis Action Taken by Nursing GENERAL: laying on left side, significant distress, holding lower back EYE EXAM: normal conjunctiva OROPHARYNX: no exudate, no erythema, lips, buccal mucosa, and tongue normal and mucous membranes are moist NECK: supple, no nuchal rigidity, no adenopathy, non-tender LUNGS: Clear to auscultation. Normal chest wall mechanics HEART: no murmurs, S1 normal and S2 normal ABDOMEN: abdomen soft, non-tender, normo-active bowel sounds, no masses, no rebound or guarding. BACK: Acute reproducible tenderness from the upper lumbar down to the lower lumbar, worse on right. Back is symmetrical on inspection and there is no deformity, no CVA tenderness. SKIN: no rashes and no bruising UPPER EXTREMITIES: upper extremities are grossly normal. LOWER EXTREMITIES: No pitting edema. Flexion and extension of the hips, knees, ankles, and EHL 5/5 bilaterally. Gross sensation is intact. DPs are 2/4 bilateral. NEURO EXAM: Normal sensorium, cranial nerves II-XII grossly intact, normal speech, no gross weakness of arms. Course Course ED COURSE: Vital signs were reviewed and showed situational hypertension. The patients medical record was reviewed The above diagnostic studies were performed and reviewed. ED treatments and interventions as stated above. 2215: The patient was evaluated in room B12B. A complete history and physical examination was performed. 2322: Upon reevaluation, the patient is more comfortable. 2340: Upon reevaluation, the patient is going to get a CT scan. 0025: Upon reevaluation, the patient is resting more comfortably. I discussed my findings with the patient and she understands and agrees with the treatment plan. Based on the patients age, coexisting illnesses, exam and lab findings the decision to treat as an inpatient was made. I spoke with Dr. Valles [facility] Hospitalist who agrees to further evaluate the patient. The patient remained stable while under my care. The patient will be evaluated for further management. Administered Medications Discontinued Medications Fentanyl Citrate (Fentanyl Citrate) 75 mcg IV NOW STA Stop: 02/09/19 22:23 Last Admin: 02/09/19 22:48 Dose: 75 mcg Documented by: [id number] Sodium Chloride (Nss) 500 mls @ 999 mls/hr IV .Q31M CHANDRAKANT Stop: 02/09/19 23:00 Last Infusion: 02/09/19 23:50 Dose: 0 mls/hr Documented by: [id number] Admin: 02/09/19 22:48 Dose: 999 mls/hr Documented by: [id number] Lorazepam (Ativan) 0.25 mg in 0.5 mls @ 0.5 mls/min IV NOW STA Stop: 02/10/19 00:26 Last Admin: 02/10/19 00:39 Dose: 0.5 mls/min Documented by: [id number] Ketorolac Tromethamine (Toradol) 10 mg IV ONE STA Stop: 02/09/19 22:23 Last Admin: 02/09/19 22:48 Dose: 10 mg Documented by: [id number] Methylprednisolone (Solumedrol) 40 mg IV NOW STA Stop: 02/09/19 22:23 Last Admin: 02/09/19 22:48 Dose: 40 mg Documented by: [id number] Ondansetron HCl (Zofran) 4 mg IV NOW STA Stop: 02/10/19 00:26 Last Admin: 02/10/19 00:35 Dose: 4 mg Documented by: [id number] Medical Decision Making Differential Diagnosis Differential diagnoses includes but is not limited to lumbar radiculopathy, muscle strain, fracture, cauda equina, mass, and disc herniation. Medical Records Attestation: I reviewed the patient's medical records. Home Medications Current Medication List: was personally reviewed by me Laboratory Data Attestation: I reviewed the patient's lab results. Result diagrams: 02/09/19 22:39 02/09/19 22:39 Lab Results 02/09/19 02/09/19 Range/Units 22:39 22:39 WBC 9.85 (4.8-10.8) K/uL RBC 4.22 (4.2-5.4) M/uL Hgb 13.7 (12.0-16.0) g/dL Hct 40.7 (37-47) % MCV 96.4 (80-100) fL MCH 32.5 (25-34) pg MCHC 33.7 (32-36) g/dL RDW Std Deviation 45.0 (36.4-46.3) fL RDW Coeff of Shanika 13.0 (11.5-14.5) % Plt Count 379 (130-400) K/uL MPV 9.3 (7.4-10.4) fL Immature Gran % (Auto) 0.3 % Neut % (Auto) 58.3 % Lymph % (Auto) 29.8 % [place] % (Auto) 10.8 % Eos % (Auto) 0.6 % Baso % (Auto) 0.2 % Immature Gran # (Auto) 0.03 H (0.00-0.02) K/uL Neut # (Auto) 5.74 (1.4-6.5) K/uL Lymph # (Auto) 2.94 (1.2-3.4) K/uL [place] # (Auto) 1.06 H (0.11-0.59) K/uL Eos # (Auto) 0.06 (0-0.5) K/uL Baso # (Auto) 0.02 (0-0.2) K/uL Sodium 140 (136-145) mmol/L Potassium 3.7 (3.5-5.1) mmol/L Chloride 107 (98-107) mmol/L Carbon Dioxide 28 (21-32) mmol/L Anion Gap 5.0 (3-11) BUN 28 H (7-18) mg/dl Creatinine 0.70 (0.6-1.2) mg/dl Est Cr Clr Drug Dosing 72.0 ml/min Est GFR ( Amer) 103.2 Est GFR (Non-Af Amer) 89.0 BUN/Creatinine Ratio 39.5 H (10-20) Glucose 106 H (70-99) mg/dl Calcium 9.4 (8.5-10.1) mg/dl Imaging Data Radiologist's Impression: Radiology results as stated below per my review and the radiologist's interpretation: Per stat read CT of the lumbar spine: shows diffuse osteopenia. There is a subtle 15% inferior endplate compression fracture of L1. No posterior protrusion. New from previous study on June 22, 2018. Blood Pressure Blood Pressure Findings: Elevated blood pressure Blood Pressure Disposition: elevated BP felt to be situational MDM Narrative Patient is a 69-year-old female who presents the ER for severe back pain brought in by EMS. Patient has been helping her friend and has been lifting her up over the past 7 days. Back pain has been getting worse. She denies any weakness or numbness. Able to urinate and move her bowels. Today she was unable to get up from her chair to the severe pain. IV was established blood work was obtained. Prior to arrival patient received fentanyl. Labs show no significant leukocytosis or anemia. BMP was unremarkable. CT of the lumbar spine shows an L1 endplate fracture. She has diffuse tenderness throughout the paraspinal lumbar region which I do favor is likely musculoskeletal. She has no focal deficit. She was given IV fentanyl, IV Zofran and small dose of IV Ativan due to the spasms. She rested comfortably. She was on 2 L nasal cannula secondary to the medications. She was updated bedside. Unable to get up or move and consequently discussed with the hospitalist for observation. Impression & Plan Fracture of lumbar spine, Back muscle spasm, Acute hyperglycemia Discharge Plan Visit Data Chief Complaint: Back Injury/Pain Stated Complaint: LOWER BACK PAIN, FALL ED Provider: Elfego Estrada Discharge Problem: Fracture of lumbar spine, Back muscle spasm, Acute hyperglycemia Patient Disposition: Being Evaluated by Hospitalist Forms Stand Alone Forms: My xCloud Prescriptions Prescriptions: No Action krill oil 500 mg capsule 1 cap PO .Two in the morning a RF: 0 atorvastatin 40 mg Tablet 40 mg PO QPM RF: 0 propranolol 80 mg Tablet 80 mg PO QAM RF: 0 pantoprazole [Protonix] 40 mg Tablet,Delayed Release (Dr/Ec) 40 mg PO QAM RF: 0 docusate sodium [Colace] 100 mg Capsule 100 mg PO BID RF: 0 lisinopril 2.5 mg Tablet 2.5 mg PO QAM RF: 0 prednisone 20 mg Tablet 20 mg PO BID RF: 0 methocarbamol 500 mg Tablet 500 mg PO BID PRN (Reason: muscle spasms) RF: 0 Excedrin Migraine 250-250-65 mg Tablet 1 tab PO Q6H PRN (Reason: Migraine Headache) RF: 0 Referrals Referrals: Tricia Turk DO [Primary Care Provider] - Discharge Problem: Fracture of lumbar spine Qualifiers: Encounter type: initial encounter Lumbar vertebra fracture level: L1 Fracture type: closed Fracture morphology: unspecified fracture morphology Qualified Code(s): S32.019A - Unspecified fracture of first lumbar vertebra, initial encounter for closed fracture The scribe's documentation has been prepared under my direction and personally reviewed by me in its entirety. I confirm that the note above accurately reflects all work, treatment, procedures, and medical decision making performed by me.
[2019-02-10] MEDS ORDERED: LIDOCAINE 5% 1 PATCH TD STA (01:00)
--- NOTE | 2019-02-10 01:16 | History & Physical Report ---
Date of Service February 10, 2019 Assessment & Plan (1) Lumbar compression fracture: Intractable discomfort History of lifting hypertension, slightly elevated COPD, pulmonary status at baseline mood disorder, at baseline past tobacco abuse OBS GMF Analgesia, Lidoderm patch trial Orthopedic spine consult Re: Lumbar compression fracture PT OT eval DVT prophylaxis. SCDs RE possible procedure; Lovenox 40 mg subcutaneous daily if without plans for procedural intervention during stay. Full code History of Present Illness Chief Complaint: Back pain Primary Care Provider: Tricia Turk DO History obtained from patient, family, and records. Medical history significant for hypertension, hyperlipidemia, COPD, mood disorder, past tobacco abuse. Recent confinement July 2016 under General Surgery service for colostomy takedown. 1 week history of achy low back pain symptoms worse on moving around shooting down to the right lower extremity, usual urinary incontinence. Patient associates discomfort after lifting a bedbound friend at home. No fever, no chills. Patient seen at PCP's office yesterday. Symptoms attributed to low back pain, right-sided sciatica. Outpatient spine x-ray showed degenerative changes. Prednisone course, antispasmodic prescribed. Patient had worsening of discomfort after falling at home from a chair. Intractable pain at the ER. 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 Allergies Allergy/AdvReac Type Severity Reaction Status Date / Time morphine Allergy Severe Anaphylaxis Verified 08/05/18 18:37 animal dander Allergy Intermediate Itchy,watery Verified 08/05/18 18:38 eyes/sneezing diphenhydramine Allergy Intermediate itching Verified 08/05/18 18:37 house dust Allergy Intermediate Itchy,watery Verified 08/05/18 18:37 eyes/sneezing hydrocodone AdvReac Intermediate GI SYMPTOMS Verified 08/05/18 18:37 Home Medications Home Medications Medication Instructions Recorded Confirmed Type atorvastatin 40 mg PO QPM 06/22/18 02/09/19 History docusate sodium [Colace] 100 mg PO BID 06/22/18 02/09/19 History lisinopril 2.5 mg PO QAM 06/22/18 02/09/19 History pantoprazole [Protonix] 40 mg PO QAM 06/22/18 02/09/19 History propranolol 80 mg PO QAM 06/22/18 02/09/19 History krill oil 500 mg capsule 1 cap PO .Two in the morning a cap 10/13/18 02/09/19 History hfsbkfm-oojxphdflyaqx-ppxpaizs 1 tab PO Q6H PRN 02/09/19 02/09/19 History [Excedrin Migraine] methocarbamol 500 mg PO BID PRN 02/09/19 02/09/19 History prednisone 20 mg PO BID 02/09/19 02/09/19 History Past Med/Surg History Medical History 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 Diverticulitis (Chronic) Dyslipidemia (Chronic) GERD (gastroesophageal reflux disease) (Chronic) GERD (gastroesophageal reflux disease) HTN (hypertension) (Chronic) Hypertension Mitral valve prolapse (Chronic) Surgical History History of appendectomy (Resolved) History of cholecystectomy (Resolved) History of gynecologic surgery (Resolved) "surgical repair for uterine and bladder prolapse" History of mandibular surgery (Resolved) History of tubal ligation (Resolved) Family History Other Cancer Diabetes Social History Preferred Language: Turkish Communication Ability: Effective Beliefs That Will Affect Care: None Current Living Situation: Alone Feels Safe at Home: Yes Smoking Status: Current some day smoker Tobacco Type: cigarettes ; Do You Dip or Chew Tobacco: No ; Tobacco Cessation Education Requested by Patient: No (quit 4.5 yrs ago. smoked 1 pack this week then quit again.) Hx Alcohol Use: Yes Alcohol type: wine Hx Substance Use: No Review of Systems Review of Systems: As per HPI, all 10 systems reviewed, all other ROS negative Physical Exam Physical Exam: GENERAL: Slightly uncomfortable, pleasant, no respiratory distress SKIN: Normal color, warm HEENT: Bespectacled, [place] palpebral conjunctivae, no ptosis, moist buccal mucosa NECK : Supple, no tenderness CHEST : Decreased breath sounds , no tenderness HEART : RRR, no obvious murmurs ABDOMEN: Some distention, nontender BACK : Low back tenderness, positive straight leg raise test right greater than the left EXTREMITIES : No LE swelling/tenderness, no other conspicuous deformities noted NEUROLOGIC : Coherent, no facial asymmetry, no other gross focality Results & Data Vital Signs (Past 12 Hours) Vital Signs Temp Pulse Pulse Resp BP BP Pulse Ox 02/10/19 00:31 63 17 142/86 H 98 02/10/19 00:00 63 14 149/82 H 99 02/09/19 23:30 64 16 142/80 H 98 02/09/19 23:10 81 20 131/81 95 02/09/19 23:08 93 02/09/19 23:00 76 24 131/81 94 02/09/19 22:57 82 17 131/80 96 02/09/19 22:43 71 23 131/80 97 02/09/19 22:08 36.5 C 80 22 135/63 93 Laboratory Results Laboratory Results WBC 9.85 K/uL (4.8-10.8) 02/09/19 22:39 RBC 4.22 M/uL (4.2-5.4) 02/09/19 22:39 Hgb 13.7 g/dL (12.0-16.0) 02/09/19 22:39 Hct 40.7 % (37-47) 02/09/19 22:39 MCV 96.4 fL (80-100) 02/09/19 22:39 MCH 32.5 pg (25-34) 02/09/19 22:39 MCHC 33.7 g/dL (32-36) 02/09/19 22:39 RDW Std Deviation 45.0 fL (36.4-46.3) 02/09/19 22:39 RDW Coeff of Shanika 13.0 % (11.5-14.5) 02/09/19 22:39 Plt Count 379 K/uL (130-400) 02/09/19 22:39 MPV 9.3 fL (7.4-10.4) 02/09/19 22:39 Immature Gran % (Auto) 0.3 % 02/09/19 22:39 Neut % (Auto) 58.3 % 02/09/19 22:39 Lymph % (Auto) 29.8 % 02/09/19 22:39 [place] % (Auto) 10.8 % 02/09/19 22:39 Eos % (Auto) 0.6 % 02/09/19 22:39 Baso % (Auto) 0.2 % 02/09/19 22:39 Immature Gran # (Auto) 0.03 K/uL (0.00-0.02) H 02/09/19 22:39 Neut # (Auto) 5.74 K/uL (1.4-6.5) 02/09/19 22:39 Lymph # (Auto) 2.94 K/uL (1.2-3.4) 02/09/19 22:39 [place] # (Auto) 1.06 K/uL (0.11-0.59) H 02/09/19 22:39 Eos # (Auto) 0.06 K/uL (0-0.5) 02/09/19 22:39 Baso # (Auto) 0.02 K/uL (0-0.2) 02/09/19 22:39 Sodium 140 mmol/L (136-145) 02/09/19 22:39 Potassium 3.7 mmol/L (3.5-5.1) 02/09/19 22:39 Chloride 107 mmol/L (98-107) 02/09/19 22:39 Carbon Dioxide 28 mmol/L (21-32) 02/09/19 22:39 Anion Gap 5.0 (3-11) 02/09/19 22:39 BUN 28 mg/dl (7-18) H 02/09/19 22:39 Creatinine 0.70 mg/dl (0.6-1.2) 02/09/19 22:39 Est Cr Clr Drug Dosing 72.0 ml/min 02/09/19 22:39 Est GFR ( Amer) 103.2 02/09/19 22:39 Est GFR (Non-Af Amer) 89.0 02/09/19 22:39 BUN/Creatinine Ratio 39.5 (10-20) H 02/09/19 22:39 Glucose 106 mg/dl (70-99) H 02/09/19 22:39 Calcium 9.4 mg/dl (8.5-10.1) 02/09/19 22:39 Diagnostic Findings Lumbar spine CT initial read: Severe diffuse osteopenia. Subtle 15% inferior endplate compression fracture L1. No posterior protrusion of fracture segments. No significant disc bulge or herniation is seen within the lumbar spine.
[2019-02-10] MEDS ORDERED: ACETAMINOPHEN 325 MG TAB PO PRN (02:31)
[2019-02-10] MEDS ORDERED: LORazepam 0.25 MG/0.5 ML VIAL IV PRN (02:31)
[2019-02-10] MEDS ORDERED: IBUPROFEN 200 MG TAB PO PRN (02:31)
[2019-02-10] MEDS ORDERED: LACTATED RINGER'S 1,000 ML IV ONE (02:31)
[2019-02-10] MEDS ORDERED: PROMETHAZINE HCL 12.5 MG in SODIUM CHLORIDE 0.9% 50 ML IV PRN (02:31)
--- NOTE | 2019-02-10 05:30 | CT Scan Report ---
CT lumbar spine wo con CLINICAL HISTORY: 69 years-old Female presenting with severe lower back pain. TECHNIQUE: Multidetector CT of the lumbar spine was performed without the use of intravenous contrast . IV contrast: None. One or more dose lowering techniques were used consistent with the principles of ALARA (as low as reasonably achievable), including automatic exposure control, mA or kV adjustment t o individual patient size, and/or use of iterative reconstruction. COMPARISON: Correlation made to CT of abdomen and pelvis from 06/22/2018. CT DOSE (mGy.cm): The estimated cumulative dose is 1462.96 mGy.cm. 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 Minimal height loss of L1 less than 25% anomaly affecting the inferior endplate. No retropulsion of t he posterior cortex. This is new since prior exam. Otherwise normal lumbar lordosis. Remaining vertebral bodies demonstrate normal height and alignment. Intervertebral disc heights preserved. Evaluation of the soft tissues of the spinal canal do not dem onstrate effacement of the thecal sac. Calcification noted in the intervertebral discs likely degener ative related. No significant neural foraminal narrowing. No additional site of fracture. No subluxat ion. Visualized portion of the sacrum intact. Paraspinal soft tissues within normal limits. No scolio sis. IMPRESSION: Minimal compression deformity of L1 new since prior exam and may. Correlate for point tenderness as t his could be acute. ACT 112: Negative or not required by law. Electronically signed by: Rad Turner M.D. 02/10/2019 5:28 AM
[2019-02-10] MEDS: DOCUSATE SODIUM 100 MG CAP PO SCH ×2 (08:36→20:15)
[2019-02-10] MEDS: HYDROmorphone INJ 0.5 MG/0.5 ML SYR IV PRN (08:36)
[2019-02-10] MEDS: PROPRANOLOL HCL 80 MG TAB PO SCH (08:36)
--- NOTE | 2019-02-10 09:42 | Orthopedic Consultation ---
Date of Consultation February 10, 2019 Assessment & Plan (1) Lumbar compression fracture: This time would like to obtain MRI lumbar spine without gadolinium to rule out any neural compression in association with her compression fracture. We will review these findings and make further recommendations. Ultimately she may be a candidate for kyphoplasty. Present on Admission?: Yes History of Present Illness Reason for Consultation: Back pain Attending Physician: Roger Lopez MD History of Present Illness This is a very pleasant 69-year-old female that presents with a back pain and radiation into the legs. She describes pain radiating mostly in the right leg with activity. She states his symptoms began approximately a week ago and have been progressive. She states this morning she had marked difficulty ambulating to the bathroom. She required at least 2 people to assist her. Allergies Allergy/AdvReac Type Severity Reaction Status Date / Time morphine Allergy Severe Anaphylaxis Verified 08/05/18 18:37 animal dander Allergy Intermediate Itchy,watery Verified 08/05/18 18:38 eyes/sneezing diphenhydramine Allergy Intermediate itching Verified 08/05/18 18:37 house dust Allergy Intermediate Itchy,watery Verified 08/05/18 18:37 eyes/sneezing hydrocodone AdvReac Intermediate GI SYMPTOMS Verified 08/05/18 18:37 Home Medications Home Medications Medication Instructions Recorded Confirmed Type atorvastatin 40 mg PO QPM 06/22/18 02/09/19 History docusate sodium [Colace] 100 mg PO BID 06/22/18 02/09/19 History lisinopril 2.5 mg PO QAM 06/22/18 02/09/19 History pantoprazole [Protonix] 40 mg PO QAM 06/22/18 02/09/19 History propranolol 80 mg PO QAM 06/22/18 02/09/19 History krill oil 500 mg capsule 1 cap PO .Two in the morning a cap 10/13/18 02/09/19 History gkfcphj-qslhingsfifyf-upsynfsm 1 tab PO Q6H PRN 02/09/19 02/09/19 History [Excedrin Migraine] methocarbamol 500 mg PO BID PRN 02/09/19 02/09/19 History prednisone 20 mg PO BID 02/09/19 02/09/19 History Patient History Medical History 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 Diverticulitis (Chronic) Dyslipidemia (Chronic) GERD (gastroesophageal reflux disease) (Chronic) GERD (gastroesophageal reflux disease) HTN (hypertension) (Chronic) Hypertension Mitral valve prolapse (Chronic) Surgical History History of appendectomy (Resolved) History of cholecystectomy (Resolved) History of gynecologic surgery (Resolved) "surgical repair for uterine and bladder prolapse" History of mandibular surgery (Resolved) History of tubal ligation (Resolved) Family History Other Cancer Diabetes Social History Preferred Language: Pakistani Communication Ability: Effective Beliefs That Will Affect Care: None Current Living Situation: Alone Feels Safe at Home: Yes Smoking Status: Current some day smoker Tobacco Type: cigarettes ; Do You Dip or Chew Tobacco: No ; Tobacco Cessation Education Requested by Patient: No (quit 4.5 yrs ago. smoked 1 pack this week then quit again.) Hx Alcohol Use: Yes Alcohol type: wine Hx Substance Use: No Physical Exam Physical Exam: On exam she is up in bed. She is regional strength testing. She is uncomfortable with motion. Results & Data Vital Signs (Past 12 Hours) Vital Signs Temp Pulse Pulse Resp BP BP Pulse Ox 02/10/19 07:24 36.7 C 76 18 105/65 94 02/10/19 02:15 36.5 C 76 22 150/84 H 93 02/10/19 01:31 71 16 139/78 95 02/10/19 00:31 63 17 142/86 H 98 02/10/19 00:00 63 14 149/82 H 99 02/09/19 23:30 64 16 142/80 H 98 02/09/19 23:10 81 20 131/81 95 02/09/19 23:08 93 02/09/19 23:00 76 24 131/81 94 02/09/19 22:57 82 17 131/80 96 02/09/19 22:43 71 23 131/80 97 02/09/19 22:08 36.5 C 80 22 135/63 93
--- NOTE | 2019-02-10 11:44 | Magnetic Resonance Report ---
MR lumbar spine wo con CLINICAL HISTORY: 69 years-old Female presenting with severe low back pain, bilateral leg pain radiat ing to the hips and knees, lifting injury one week ago. TECHNIQUE: Multisequence, multiplanar MR imaging of the lumbar spine was performed without the use of intravenous contrast. IV contrast: None. COMPARISON: CT of the lumbar spine from 02/09/2019. FINDINGS: Localizer images: Unremarkable. Normal lumbar lordosis. Mild vertebral body edema and minimal anterior vertebral body height loss at L1. There is a T1 hypointense subtle fracture plane amidst T1 hypointense marrow edema that parallels the inferior endplate. Remaining vertebral bodies demonstrate normal height, alignment, and bone mar row signal intensity. Mild diffuse intervertebral disc desiccation without height loss. No annular fi ssures, disc bulge, or disc protrusions. No effacement of the thecal sac. No neural foraminal narrowi ng. Spinal cord terminates in good position at L1. Cauda equina normal in morphology. No epidural collect ion or mass. No paraspinal muscle edema. Flow voids within the vasculature preserved. Visualized port ion of the sacrum intact. Remainder of the visualized soft tissues within normal limits. IMPRESSION: 1. Acute minimal compression fracture of L1. 2. No spinal canal or neural foraminal narrowing. ACT 112: Negative or not required by law. Electronically signed by: Rad Turner M.D. 02/10/2019 11:43 AM
--- NOTE | 2019-02-10 15:11 | Hospitalist Progress Note ---
Date of Service February 10, 2019 Assessment & Plan (1) Lumbar compression fracture: Lumbar compression fracture Lumbar MRI:Acute minimal compression fracture of L1. No spinal canal or neural foraminal narrowing. Continue Pain control, PT/OT Appreciate Orthopedics Input Will likely need kyphoplasty Hypertension BP slightly elevated due to pain Continue home medications Dyslipidemia Continue Lipitor COPD Past tobacco abuse No signs of exacerbation Monitor DVT Px: SCDs for now Code Status Full code Disposition PT/OT prior to discharge Review of Systems Review of Systems: All systems reviewed & are unremarkable except as noted in HPI & below Physical Exam Physical Exam: Physical Exam: Vitals signs as noted above General Appearance:Moderately built and nourished, no apparent distress Head: normocephalic, Atraumatic Eyes: normal inspection, EOMI Neck: supple, Trachea midline Respiratory/Chest: Normal breath sounds, CTA Cardiovascular: S1, S2, No murmur Abdomen/GI:Soft, Non tender, Bowel sounds present 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
[2019-02-10] MEDS: ATORVASTATIN 40 MG TAB PO SCH (20:15)
[2019-02-10] MEDS: LIDOCAINE 5% 1 PATCH TD SCH (20:17)
[2019-02-10] MEDS: OXYCODONE HCL IR 5 MG TAB (IMMEDIATE RELEASE) PO PRN (20:22)
[2019-02-11] MEDS: KETOROLAC TROMETHAMINE 15 MG/ML VIAL IV PRN ×2 (04:15→17:23)
[2019-02-11] MEDS: PROPRANOLOL HCL 80 MG TAB PO SCH (07:19)
[2019-02-11] MEDS: DOCUSATE SODIUM 100 MG CAP PO SCH ×2 (07:19→21:27)
--- NOTE | 2019-02-11 09:33 | Orthopedic Progress Note ---
Date of Service February 11, 2019 Assessment & Plan (1) Lumbar compression fracture: MRI does not demonstrate evidence of any neural compression. There is an acute acute compression fracture of L1. At this time she is improving nicely. I am recommending a TLSO brace to wear when up and ambulating. She was certainly not to what need to wear this and better once sitting if it is uncomfortable. At this point I believe we can avoid surgical intervention. She is not to lift more than 5 pounds. Present on Admission?: Yes Subjective Patient feels much better today. She denies any leg symptoms. She is ambulating independently. Physical Exam Physical Exam: On exam she has very little tenderness to palpation percussion of the thoracolumbar junction. She is neurologically intact. She is ambulating well. Results & Data Vital Signs (Past 12 Hours) Vital Signs Temp Pulse Resp BP BP Pulse Ox 02/11/19 07:25 36.8 C 60 18 132/75 91 02/10/19 22:37 36.5 C 64 18 91/56 L 95
--- NOTE | 2019-02-11 13:59 | Hospitalist Progress Note ---
Date of Service February 11, 2019 Assessment & Plan (1) Lumbar compression fracture: Lumbar compression fracture Lumbar MRI:Acute minimal compression fracture of L1. No spinal canal or neural foraminal narrowing. Pain control Appreciate Orthopedics Input Continue Brace as per Ortho Since pain improved, no plan for Kyphoplasty PT/OT: Recommend return home Hypertension BP Variable due to pain Continue home medications Dyslipidemia Continue Lipitor COPD Past tobacco abuse No signs of exacerbation Monitor DVT Px: SCDs for now Code Status Full code Disposition Expect to discharge home Subjective Patient is seen and examined at bedside Back pain is much improved Discussed with orthopedics today Plan to be placed on the brace for back support Denies any chest pain, SOB, dizziness, nausea, abd pain No plan for any procedures Review of Systems Review of Systems: All systems reviewed & are unremarkable except as noted in HPI & below Physical Exam Physical Exam: Physical Exam: Vitals signs as noted above General Appearance:Moderately built and nourished, no apparent distress Head: normocephalic, Atraumatic Eyes: normal inspection, EOMI Neck: supple, Trachea midline Respiratory/Chest: Normal breath sounds, CTA Cardiovascular: S1, S2, No murmur Abdomen/GI:Soft, Non tender, Bowel sounds present Back: Lower paper machine back tender, decreased ROM due to pain Extremities/Musculoskelatal:normal inspection, no edema Neurologic/Psych:AAOX3, grossly no focal neurological deficits Skin: normal color, warm Results & Data Vital Signs (Past 12 Hours) Vital Signs Temp Pulse Resp BP Pulse Ox 02/11/19 07:25 36.8 C 60 18 132/75 91
[2019-02-11] MEDS: HYDROmorphone INJ 0.5 MG/0.5 ML SYR IV PRN (16:01)
[2019-02-11] MEDS: OXYCODONE HCL IR 5 MG TAB (IMMEDIATE RELEASE) PO PRN ×2 (17:23→21:32)
[2019-02-11] MEDS: TIZANIDINE HCL 4 MG TABLET PO PRN (18:22)
[2019-02-11] MEDS: LIDOCAINE 5% 1 PATCH TD SCH (21:28)
[2019-02-11] MEDS: ATORVASTATIN 40 MG TAB PO SCH (21:29)
[2019-02-12] MEDS: TIZANIDINE HCL 4 MG TABLET PO PRN (01:31)
[2019-02-12] MEDS: KETOROLAC TROMETHAMINE 15 MG/ML VIAL IV PRN (01:31)
[2019-02-12 06:44] LABS: BUN Creatinine Ratio 36.7 (10-20); Calcium 8.9 mg/dl (8.5-10.1); Creatinine Clr Calc Pharmacy 75.3 ml/min; Est GFR (African American) 96.5; Est GFR (Non-African American) 83.2; Potassium 3.8 mmol/L (3.5-5.1)
[2019-02-12] MEDS: DOCUSATE SODIUM 100 MG CAP PO SCH (07:56)
[2019-02-12] MEDS: PROPRANOLOL HCL 80 MG TAB PO SCH (07:56)
--- NOTE | 2019-02-12 10:32 | Orthopedic Progress Note ---
Date of Service February 12, 2019 Assessment & Plan (1) Lumbar compression fracture: This time she will be fitted with a TLSO brace today. She is to wear this when out of bed and ambulating. She is really does not need to sleep with this on and she may not want to wear it while sitting. Hopefully she will be discharged home today and we will see her back in the office in 2 weeks for x- rays. Present on Admission?: Yes Subjective Patient states her back pain is a 5 but markedly improved from her status few days ago. She denies any leg pain. Physical Exam Physical Exam: Patient is in the chair at the bedside. She appears comfortable. Good strength testing. Results & Data Vital Signs (Past 12 Hours) Vital Signs Temp Pulse Resp BP Pulse Ox 02/12/19 07:07 36.7 C 66 18 155/89 H 95 02/11/19 23:11 36.6 C 67 20 104/62 94
--- NOTE | 2019-02-12 13:55 | Hospitalist Progress Note ---
Date of Service February 12, 2019 Assessment & Plan (1) Lumbar compression fracture: Lumbar compression fracture Lumbar MRI:Acute minimal compression fracture of L1. No spinal canal or neural foraminal narrowing. Pain control Appreciate Orthopedics Input Continue TLSO Brace--to wear when out of bed or with ambulation No plan for Kyphoplasty as improving PT/OT: Recommend return home Needs follow-up with orthopedics as outpatient Hypertension BP Variable due to pain Continue home medications Dyslipidemia Continue Lipitor COPD Past tobacco abuse No signs of exacerbation Monitor DVT Px: SCDs for now Code Status Full code Disposition Expect to discharge home Subjective Patient is seen and examined at bedside Back pain is much better than the time of admission Patient needs to be fitted with TLSO brace today Discussed with Dr. Costello today No other complaints Denies any chest pain, SOB, dizziness, nausea, abd pain Plan to discharge home today if pain is controlled Review of Systems Review of Systems: All systems reviewed & are unremarkable except as noted in HPI & below Physical Exam Physical Exam: Physical Exam: Vitals signs as noted above General Appearance:Moderately built and nourished, no apparent distress Head: normocephalic, Atraumatic Eyes: normal inspection, EOMI Neck: supple, Trachea midline Respiratory/Chest: Normal breath sounds, CTA Cardiovascular: S1, S2, No murmur Abdomen/GI:Soft, Non tender, Bowel sounds present 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
--- NOTE | 2019-02-12 14:20 | Discharge Summary ---
Date of Service February 12, 2019 Admission HPI Per Admitting Provider History obtained from patient, family, and records. Medical history significant for hypertension, hyperlipidemia, COPD, mood disorder, past tobacco abuse. Recent confinement July 2016 under General Surgery service for colostomy takedown. 1 week history of achy low back pain symptoms worse on moving around shooting down to the right lower extremity, usual urinary incontinence. Patient associates discomfort after lifting a bedbound friend at home. No fever, no chills. Patient seen at PCP's office yesterday. Symptoms attributed to low back pain, right-sided sciatica. Outpatient spine x-ray showed degenerative changes. Prednisone course, antispasmodic prescribed. Patient had worsening of discomfort after falling at home from a chair. Intractable pain at the ER. 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 Admission Exam Per Admitting Provider GENERAL: Slightly uncomfortable, pleasant, no respiratory distress SKIN: Normal color, warm HEENT: Bespectacled, [place] palpebral conjunctivae, no ptosis, moist buccal mucosa NECK : Supple, no tenderness CHEST : Decreased breath sounds , no tenderness HEART : RRR, no obvious murmurs ABDOMEN: Some distention, nontender BACK : Low back tenderness, positive straight leg raise test right greater than the left EXTREMITIES : No LE swelling/tenderness, no other conspicuous deformities noted NEUROLOGIC : Coherent, no facial asymmetry, no other gross focality Principal Diagnosis Lumbar compression fracture Discharge Data Allergies Allergy/AdvReac Type Severity Reaction Status Date / Time morphine Allergy Severe Anaphylaxis Verified 08/05/18 18:37 animal dander Allergy Intermediate Itchy,watery Verified 08/05/18 18:38 eyes/sneezing diphenhydramine Allergy Intermediate itching Verified 08/05/18 18:37 house dust Allergy Intermediate Itchy,watery Verified 08/05/18 18:37 eyes/sneezing hydrocodone AdvReac Intermediate GI SYMPTOMS Verified 08/05/18 18:37 Consultations 02/10/19 00:22 ED Decision to Admit Stat 02/10/19 02:31 Consult Orthopedic Surgery Routine Procedures Performed Lumbar MRI: Acute minimal compression fracture of L1. No spinal canal or neural foraminal narrowing. Ordered Studies 02/09/19 22:22 CT lumbar spine wo con Stat 02/10/19 09:42 MR lumbar spine wo con Routine Hospital Course (1) Lumbar compression fracture: Lumbar compression fracture Lumbar MRI:Acute minimal compression fracture of L1. No spinal canal or neural foraminal narrowing. Pain control Appreciate Orthopedics Input Continue TLSO Brace--to wear when out of bed or with ambulation No plan for Kyphoplasty as improving PT/OT: Recommend return home Needs follow-up with orthopedics as outpatient Hypertension BP Variable due to pain Continue home medications Dyslipidemia Continue Lipitor COPD Past tobacco abuse No signs of exacerbation Monitor DVT Px: SCDs for now Code Status Full code Disposition Expect to discharge home Total Time Total Time Spent Total Time Spent (In Minutes): 38 minutes Total Time Includes: Examination of the Patient, Discharge Planning, Medication Reconciliation, Communication With Other Providers and Other Discharge Plan Discharge Items Patient Disposition: Home - Home Health Services Reason For Visit: BACK PAIN Discharge Diagnosis: Lumbar compression fracture Activity: Per Instructions section Exercise/Sports: Gradually increase as tolerated Driving/Machine Use: Recommend not to drive while on pain medications. Follow- up with your physician for further recommendations. Non-emergency contact: Primary Care Provider and Surgeon Call non-emergency contact if: you have any medication questions, your symptoms worsen, your pain is not controlled, your pain is worsening, your pain is unusual for you, your pain is concerning for you and you have a fever Follow-up/Referrals: Tricia Turk DO [Primary Care Provider] - (Dr. Turk has no open appointments in the next several days.) Paige Meehan MD [Physician] - 02/16/19 12:45 pm Diet: Heart Healthy Addtl Attending Provider Instructions: Follow-up with your primary care physician on February 15, 2019 at 8:45 Am Follow-up with your orthopedic surgeon Dr. Costello in 2 weeks as advised Continue to use back brace for ambulation and while getting out of bed. Seek immediate medical attention if your symptoms reoccur or worsen Pending Studies at Discharge: No Stand-Alone Forms: [facility], Smoking Cessation Medications and DC Order Prescriptions: New oxycodone 5 mg Tablet 5 mg PO Q8H PRN (Reason: pain) Qty: 10 RF: 0 Continued krill oil 500 mg capsule 1 cap PO .Two in the morning a RF: 0 atorvastatin 40 mg Tablet 40 mg PO QPM RF: 0 propranolol 80 mg Tablet 80 mg PO QAM RF: 0 pantoprazole [Protonix] 40 mg Tablet,Delayed Release (Dr/Ec) 40 mg PO QAM RF: 0 docusate sodium [Colace] 100 mg Capsule 100 mg PO BID RF: 0 lisinopril 2.5 mg Tablet 2.5 mg PO QAM RF: 0 prednisone 20 mg Tablet 20 mg PO BID RF: 0 methocarbamol 500 mg Tablet 500 mg PO BID PRN (Reason: muscle spasms) RF: 0 Excedrin Migraine 250-250-65 mg Tablet 1 tab PO Q6H PRN (Reason: Migraine Headache) RF: 0 Discharge Orders: Discharge Order (Routine); Ordered 02/12/19 Ordered By: Roger Lopez Admission Data Admit Date/Time: 02/10/19 16:21 Attending Provider: Roger Lopez Admit Provider: Silvio Valles Primary Care Provider: Tricia Turk Other Providers: Silvio Valles ; Tomas Costello ; [facility] Other Interventions: Discharge Summary Assessment (RN) Last Done: 02/12/19 15:04 DC Date/Time DO NOT enter until pt leaves facility: 02/12/19 15:33
--- NOTE | 2019-02-20 12:02 | Coding Query ---
CODING QUERY To promote full compliance with coding requirements relating to patient care, provider participation is requested in all cases of clinical informatics specialist uncertainty. Please assist us with the question(s) below: Coding Question(s): Lumbar Compression Fracture is documented in the record. Please clarify below, in your clinical opinion, regarding the Compression Fracture. ( ) Lumbar Compression Fracture was likely due to Trauma ( ) Lumbar Compression Fracture was likely due to Pathological Fracture ( X ) Lumbar Compression Fracture was not due to Trauma and not a Pathological Fracture - Unspecified ( ) Other: Please Specify Physician's Response(s): Thank you Abigail Bobo Principal Diagnosis: "that condition established after study, to be chiefly responsible for occasioning the admission of the patient to the hospital for care." Co-Existing Principal Diagnosis: "when two or more diagnoses equally meet the criteria for principal diagnosis as determined by the circumstances of admission, diagnostic work up, and/or therapy provided, and the Alphabetic Index, Tabular List, or another coding guideline does not provide sequencing direction, any one of the diagnoses may be sequenced first." "When the physician has documented what appears to be a current diagnosis in the body of the record, but has not included the diagnosis in the final diagnostic statement, the physician should be asked whether the diagnosis should be added." (Source Coding Clinic 2 QTR90. p3-4) DEYSI
== END 2019-02-12 15:33 | disposition home health service (06) | DRG 544 ==
LOC: ED 22:07 → 4W 22:07